=== PATIENT | female | born 1945 | race Caucasian/White ===

== ENCOUNTER → 2017-05-21 | Outpatient (CLI) | payer MEDICARE ==
[2017-05-21 17:19] LABS: HCT 43.5 % (34.0-46.0); HGB 13.8 gm/dL (11.4-16.0); MCH 27.5 pg (25.0-35.0); MCHC 31.7 g/dL (31.0-37.0); MCV 86.8 fL (80.0-100.0); Mean Platelet Volume 7.1; Platelet Count 322 k/uL (150-450); RBC 5.01 m/uL (3.80-5.40); RDW 13.7 % (11.5-15.5); WBC 10.6 k/uL (3.8-10.6)
[2017-05-21 17:41] LABS: ALT 48 U/L (9-52); AST 33 U/L (14-36); Albumin 4.9 g/dL (3.5-5.0); Alkaline Phosphatase 83 U/L (38-126); Anion Gap 10 mmol/L; Blood Urea Nitrogen 20 mg/dL (7-17); Carbon Dioxide 29 mmol/L (22-30); Chloride 102 mmol/L (98-107); Glucose 107 mg/dL (74-99); Potassium 5.2 mmol/L (3.5-5.1); Sodium 141 mmol/L (137-145); Total Bilirubin 0.6 mg/dL (0.2-1.3)
--- NOTE | 2017-05-21 18:32 | XR ---
EXAMINATION TYPE: XR knee complete bilateral DATE OF EXAM: 05/21/2017 COMPARISON: NONE HISTORY: Pain TECHNIQUE: 6 views FINDINGS: There is narrowing of the joint spaces of the left knee with spurring of femoral and tibial condyles. There is spurring on the left patella. I see no fracture nor dislocation. The right knee j oint spaces are fairly normal. IMPRESSION: Moderate osteoarthritis in the left knee. Negative right knee exam. No fracture seen.
--- NOTE | 2017-05-21 18:33 | XR ---
EXAMINATION TYPE: XR lumbar spine 2 or 3V DATE OF EXAM: 05/21/2017 COMPARISON: NONE HISTORY: Pain TECHNIQUE: 3 views FINDINGS: The vertebra have fairly normal alignment. There is hypertrophic anterior spurring througho ut the lumbar spine. Posterior elements appear intact. Sacroiliac joints appear normal. There is no e vidence of a fracture. IMPRESSION: Multilevel spondylosis. No fracture seen. No significant disc space narrowing.
--- NOTE | 2017-05-21 18:34 | XR ---
EXAMINATION TYPE: XR Hip Bilateral Complete DATE OF EXAM: 05/21/2017 COMPARISON: NONE HISTORY: Pain TECHNIQUE: 4 views FINDINGS: There is moderate narrowing of the right hip joint space with extensive spurring of the lou tabulum. There is osteosclerosis and subchondral cystic change on both sides of the right hip joint. The left hip joint space is fairly normal. I see no fracture. IMPRESSION: Severe osteoarthritis in the right hip joint. Normal left hip joint. No fracture.
[2017-05-21 19:44] LABS: Erythrocyte Sedimentation Rate 11 mm/hr (0-20)
[2017-05-22 02:26] LABS: Hemoglobin A1C 6.2 % (4.0-6.0)
== END | disposition home or self-care (01) ==
LOC: RADXRMAIN 16:22
PROVIDERS: ATTEND Family Medicine
DX: M17.12 Unilateral primary osteoarthritis, left knee (principal); M16.11 Unilateral primary osteoarthritis, right hip; M47.816 Spondylosis without myelopathy or radiculopathy, lumbar region; I25.10 Atherosclerotic heart disease of native coronary artery without angina pectoris; M25.50 Pain in unspecified joint
CPT/HCPCS: 72100; 73521; 80053; 83036; 84443; 85027; 85652; 86431

== ENCOUNTER → 2017-06-04 | Outpatient (CLI) | payer MEDICARE ==
[2017-06-04 10:14] LABS: Cholesterol 238 mg/dL (<200); HDL Cholesterol 50 mg/dL (40-60); LDL Cholesterol,Calculated 150 mg/dL (0-99); Triglycerides 189 mg/dL (<150)
== END | disposition home or self-care (01) ==
LOC: LABWHC1 09:39
PROVIDERS: ATTEND Family Medicine
DX: I25.10 Atherosclerotic heart disease of native coronary artery without angina pectoris (principal); M19.90 Unspecified osteoarthritis, unspecified site
CPT/HCPCS: 36415; 80061

== ENCOUNTER 2018-02-09 14:26 | Inpatient (IN) | payer MEDICARE ==
[2018-02-09] MEDS ORDERED: SODIUM CHLORIDE 0.9% 1,000 ML IV SCH (16:15)
--- NOTE | 2018-02-09 16:58 | XR ---
EXAMINATION: XR chest 2V DATE AND TIME: 02/09/2018 4:44 PM CLINICAL INDICATION: dyspnea TECHNIQUE: PA and lateral COMPARISON: 11/30/2011 FINDINGS: SOFT TISSUES: Sutures and mediastinal clips are noted. There is mild/moderate enlargement of the card iac silhouette. LUNGS: There is marked silhouetting of the pulmonary vasculature bilaterally by asymmetric pattern of ill-defined reticular opacity with bilateral septal lines noted. No airspace filling process. PLEURAL SPACES: Minimally blunted posterior costophrenic angles are noted, along with tracking along the interlobar fissures bilaterally. OSSEOUS STRUCTURES: Unremarkable. VISUALIZED SUBDIAPHRAGMATIC STRUCTURES: Negative. IMPRESSION: RADIOGRAPHIC READINGS CONSISTENT WITH MARKED INTERSTITIAL PHASE CARDIOGENIC PULMONARY EDEMA.
[2018-02-09] MEDS: ATENOLOL 25 MG TAB PO SCH (17:44)
[2018-02-09] MEDS ORDERED: DILTIAZEM DRIP BOLUS FROM BAG 1 MG SOLN IV ONE (18:05)
[2018-02-09] MEDS ORDERED: HEPARIN SODIUM,PORCINE 5,000 UNIT/ML 1 ML VIAL IV PRN (18:07)
[2018-02-09] MEDS ORDERED: FUROSEMIDE 10 MG/ML 4 ML VIAL IV STA (18:18)
[2018-02-09 18:29] LABS: Basophils # (A) 0.1 k/uL (0-0.2); Basophils % (A) 1 %; Eosinophils # (A) 0.4 k/uL (0-0.7); Eosinophils % (A) 4 %; HCT 40.2 % (34.0-46.0); HGB 12.7 gm/dL (11.4-16.0); Hypochromasia Slight; Lymphocytes # (A) 3.2 k/uL (1.0-4.8); Lymphocytes % (A) 26 %; MCH 27.2 pg (25.0-35.0); MCHC 31.6 g/dL (31.0-37.0); MCV 86.2 fL (80.0-100.0); Mean Platelet Volume 7.5; Monocytes # (A) 0.6 k/uL (0-1.0); Monocytes % (A) 5 %; Neutrophils # (A) 7.6 k/uL (1.3-7.7); Neutrophils % (A) 63 %; Platelet Count 325 k/uL (150-450); RBC 4.67 m/uL (3.80-5.40); RDW 15.3 % (11.5-15.5); WBC 12.2 k/uL (3.8-10.6)
[2018-02-09] MEDS ORDERED: HEPARIN SODIUM,PORCINE 5,000 UNIT/ML 1 ML VIAL IV ONE (18:30)
[2018-02-09] MEDS ORDERED: HEPARIN SOD,PORK IN 0.45% NACL 25,000 UNIT in 0.45% NACL 1 500ML.BAG IV SCH (18:30)
[2018-02-09] MEDS ORDERED: DILTIAZEM 50 MG in SODIUM CHLORIDE 0.9% 40 ML IV SCH (18:30)
[2018-02-09 18:36] LABS: INR 1.1 (<1.2); Partial Thromboplastin Time 24.3 sec (22.0-30.0); Prothrombin Time 10.7 sec (9.0-12.0)
[2018-02-09] MEDS: LISINOPRIL 5 MG TAB PO SCH (21:22)
--- NOTE | 2018-02-09 23:08 | CONS ---
CONSULTATION CHIEF COMPLAINT: Shortness of breath and leg edema. Barb is a 72-year-old lady with history of coronary artery disease, status post CABG in 2012, who is admitted to hospital with shortness of breath and leg edema of several days' duration. Her leg edema is more on the left side than on the right side. She is directly admitted to hospital by Dr. Murray Gaytan. She denies any chest pain, palpitations, dizziness or syncope. There is no history of paroxysmal nocturnal dyspnea or orthopnea. She has not been on any cardiac medications. When she was initially admitted to the med/surg unit she was in atrial fibrillation with rapid ventricular rate. We brought her up to [facility]. By then her heart rate was better controlled following a dose of Tenormin. We gave her a dose of Lasix. Her BNP is elevated. We started her on IV heparin. D-dimer is slightly elevated. I am going to get a creatinine done, and if that is normal, obtain a CTA of the pulmonary arteries to rule out pulmonary embolism. Will get a venous duplex of the left leg to rule out DVT. BNP is elevated. We will obtain cardiac enzymes to rule out myocardial ischemia. We will review her old records. PAST MEDICAL HISTORY: 1. CAD, status post CABG. 2. Arthritis. MEDICATION: She was just taking an NSAID. ALLERGIES: SULFA and PENICILLIN. FAMILY HISTORY: Significant for valvular heart disease in her mother. SOCIAL HISTORY: Negative for smoking, EtOH abuse or drug abuse. REVIEW OF SYSTEMS: HEENT is unremarkable. CARDIAC: As described above. RESPIRATORY: As described above. GI: Negative. GENITOURINARY: Negative. ALLERGY/IMMUNOLOGY: Negative. SKIN: Negative. MUSCULOSKELETAL: Significant for arthritis. PSYCHOSOCIAL: Negative. ENDOCRINE: Negative. RHEUMATOLOGIC: Negative. DERMATOLOGIC: Negative. CONSTITUTIONAL: Negative. ONCOLOGICAL: Negative. STORES CLERK: Negative. Rest of the system review is not relevant. PHYSICAL EXAMINATION: Heart rate is 90 beats per minute, irregular. Blood pressure is 130/72, respiratory rate 18. Chest exam reveals good air entry bilaterally. Heart exam reveals first and second heart sounds, irregular rhythm, and a systolic murmur at the left lower sternal border. Abdomen is soft. Examination of extremities revealed bilateral edema, more on the left side than on the right side. Foot pulses are intact. EKG shows atrial fibrillation, nonspecific ST-T wave changes. BNP is elevated. D- dimer is slightly elevated. ASSESSMENT: 1. Persistent atrial fibrillation with poorly controlled ventricular rate. 2. Acute onset congestive heart failure of undermined left ventricular function. 3. History of coronary artery disease, status post coronary artery bypass grafting. 4. Elevated D-dimer. 5. Left leg edema. PLAN: Therapies as initiated. I will obtain a 2D echo in the morning. Will decide on further course of action based on the test results. Patient is being treated with aspirin, IV heparin, beta blockers, GAVIN inhibitors, statins and IV diuretics. MMODL / IJN: [id number] /
[2018-02-09] MEDS ORDERED: IBUPROFEN 400 MG TAB PO PRN (23:11)
[2018-02-10 01:25] LABS: Appearance,Urine Clear (Clear); Bacteria,Urine Rare /hpf; Bilirubin,Urine Negative (Negative); Blood,Urine Negative (Negative); Color,Urine Colorless; Glucose,Urine (UA) Negative (Negative); Ketones,Urine Negative (Negative); Leukocyte Esterase,Urine Trace (Negative); Nitrite,Urine Negative (Negative); PH, Urine 5.5 (5.0-8.0); Protein,Urine Negative (Negative); RBC,Urine <1 /hpf (0-5); Specific Gravity,Urine 1.006 (1.001-1.035); Squamous Epithelial Cell,Urine <1 /hpf (0-4); Urobilinogen,Urine <2.0 mg/dL (<2.0); WBC,Urine 5 /hpf (0-5)
[2018-02-10 03:07] LABS: Basophils # (A) 0.1 k/uL (0-0.2); Basophils % (A) 1 %; Eosinophils # (A) 0.5 k/uL (0-0.7); Eosinophils % (A) 4 %; HCT 39.2 % (34.0-46.0); HGB 12.2 gm/dL (11.4-16.0); Hypochromasia Moderate; Lymphocytes # (A) 4.3 k/uL (1.0-4.8); Lymphocytes % (A) 36 %; MCH 27.4 pg (25.0-35.0); MCV 88.3 fL (80.0-100.0); Mean Platelet Volume 7.1; Monocytes # (A) 0.6 k/uL (0-1.0); Monocytes % (A) 5 %; Neutrophils # (A) 6.1 k/uL (1.3-7.7); Neutrophils % (A) 51 %; Platelet Count 316 k/uL (150-450); RBC 4.44 m/uL (3.80-5.40); RDW 15.2 % (11.5-15.5); WBC 11.9 k/uL (3.8-10.6)
[2018-02-10 03:24] LABS: Albumin 3.9 g/dL (3.5-5.0); Calcium 9.4 mg/dL (8.4-10.2); Magnesium 1.8 mg/dL (1.6-2.3); Potassium 4.4 mmol/L (3.5-5.1); Total Bilirubin 0.6 mg/dL (0.2-1.3); Total Protein 6.8 g/dL (6.3-8.2)
--- NOTE | 2018-02-10 08:07 | US ---
EXAMINATION TYPE: US venous doppler duplex LE RT DATE OF EXAM: 02/10/2018 7:54 AM COMPARISON: NONE CLINICAL HISTORY: rule out DVT. Right leg pain and swelling, patient on blood thinners SIDE PERFORMED: Right TECHNIQUE: The lower extremity deep venous system is examined utilizing real time linear array sonog carlos with graded compression, doppler sonography and color-flow sonography. VESSELS IMAGED: External Iliac Vein (EIV) Common Femoral Vein Deep Femoral Vein Greater Saphenous Vein * Femoral Vein Popliteal Vein Small Saphenous Vein * Proximal Calf Veins (* superficial vessels) Right Leg: Appears negative for DVT There is normal flow, compressibility, vascular waveforms. IMPRESSION: No evident deep venous thrombosis at or above the right knee
--- NOTE | 2018-02-10 08:28 | CT ---
EXAMINATION TYPE: CT chest angio for PE DATE OF EXAM: 02/10/2018 COMPARISON: Radiographs 02/09/2018 HISTORY: 72-year-old female with shortness of breath, rule out PE TECHNIQUE: Contiguous axial scanning of the chest performed with IV Contrast, patient injected with 6 6mL mL of Isovue 370. Coronal/sagittal MIP reconstructions performed. CT DLP: 249.2 mGycm Automated exposure control for dose reduction was used. FINDINGS: Heart borderline enlarged without pericardial effusion. No flattening of the interventricular septum. Median sternotomy wires are present with post-CABG changes. Aorta normal caliber with conventional arch vessel branching anatomy. There is dense opacification of the pulmonary arterial system with a solitary branch point filling de fect at the distal left lower lobar pulmonary artery, axial image 61. Contrast has not adequately mandi ched the lung bases and assessment here is limited. There is mediastinal lymphadenopathy, right paratracheal measuring 1.4 cm, AP window measuring 1.3 cm , precarinal measuring 1.6 cm, and subcarinal measuring 1.8 cm. Small to moderate bilateral pleural effusions with diffuse septal lines and mild patchy areas of grou ndglass in the lower lungs. Some more confluent consolidation in the inferior lingula is noted. Prominent reflux of contrast into the hepatic veins. Bones: Mild degenerative disc disease throughout. IMPRESSION: 1. AT LEAST A SOLITARY PULMONARY EMBOLUS AT THE BRANCH POINT OF THE DISTAL LEFT LOWER LOBAR PULMONARY ARTERY. CONTRAST HAS NOT ADEQUATELY REACHED THE LUNG BASES TO ASSESS THESE VESSELS. NO CT EVIDENCE F OR RIGHT HEART STRAIN. 2. SMALL TO MODERATE PLEURAL EFFUSIONS WITH DIFFUSE SEPTAL LINES, DEVELOPING PATCHY GROUNDGLASS IN TH E LOWER LUNGS, AND PROMINENT REFLUX OF CONTRAST INTO THE HEPATIC VEINS. CORRELATE FOR CHF AND DEVELOP ING INTERSTITIAL EDEMA. 3. MORE CONFLUENT PULMONARY EDEMA VERSUS INFILTRATE AT THE INFERIOR LINGULA. 4. MEDIASTINAL LYMPHADENOPATHY MEASURING UP TO 1.8 CM WHICH MAY BE REACTIVE. 4 - 6 WEEK FOLLOW-UP REC OMMENDED AFTER TREATMENT TO REASSESS. SARCOIDOSIS/GRANULOMATOUS DISEASE, SYSTEMIC INFECTIONS, LYMPHOM A, AND METASTATIC DISEASE ARE IN THE DIFFERENTIAL AT THIS TIME. Critical findings called to nurse Arenas on at 8:25 AM.
--- NOTE | 2018-02-10 08:36 | P.CNOR ---
History of Present Illness - [facility] Consult date: 02/10/18 Consult reason: joint pain (Right hip) History of present illness: This is a 72-year-old female admitted with congestive heart failure. She complains of right hip pain. She was scheduled to see Dr. Darrel Dean in the office today for evaluation of her right hip pain. She has a known history of degenerative arthritis of the right hip. She does complain of some back pain but denies any radiculopathy, numbness or tingling. We're consulted for orthopedic evaluation of her right hip. Past Medical History Past Medical History: Coronary Artery Disease (CAD), Osteoarthritis (OA) Additional Past Medical History / Comment(s): "fatty liver", beginnings of cataracts","occ heart burn takes tums", urinary incont. previous hx mentioned mi but pt not aware of this. History of Any Multi-Drug Resistant Organisms: None Reported Past Surgical History: Back Surgery, Coronary Bypass/CABG, Heart Catheterization , Tonsillectomy, Tubal Ligation Additional Past Surgical History / Comment(s): 2012 quad cabg,cervical fusion, lt knee arthroscopic sx Past Anesthesia/Blood Transfusion Reactions: Family History of Problems w/ Anesthesia Additional Past Anesthesia/Blood Transfusion Reaction / Comm: mom had hard time waking up after aa. pt has clausterphobia Smoking Status: Former smoker - Past Family History Father Family Medical History: Myocardial Infarction ([place]) Additional Family Medical History / Comment(s): from mi at age 52 Mother Additional Family Medical History / Comment(s): rheumatic fever. lived till age 85 Medications and Allergies Home Medications Medication Instructions Recorded Confirmed Type Multivitamin [Multivitamins Adult 1 tab PO DAILY 02/09/18 02/09/18 History Gummies] Naproxen Sodium [Aleve] 440 mg PO DAILY PRN 02/09/18 02/09/18 History Allergies Allergy/AdvReac Type Severity Reaction Status Date / Time acetaminophen [From Tylenol] AdvReac Unknown Verified 02/09/18 16:09 Sulfa (Sulfonamide AdvReac Confusion Verified 02/09/18 16:09 Antibiotics) Physical Examination This is a pleasant 72-year-old female in no acute distress. She is alert and oriented 3. Exam of the lower extremities reveals no obvious deformity. There is no erythema or ecchymosis to the right lower extremity. She has full foot and ankle motion without difficulty or pain. She has difficulty raising the leg off the bed independently but can do so with pain. She is limited in internal/external rotation of the hip and has pain with rotation. Normal sensation to the toes. Neurovascular status to the lower extremity is intact. Results Current x-rays are pending. X-rays of the right hip and pelvis from May 2017 reveal moderate to severe degenerative arthritis of the right hip. No fractures identified on those images. - Labs Labs: Abnormal Lab Results - Last 24 Hours (Table) 02/09/18 02/09/18 02/09/18 Range/Units 16:21 16:21 16:21 WBC 12.2 H (3.8-10.6) k/uL APTT (22.0-30.0) sec D-Dimer 0.85 H (<0.60) mg/L FEU BUN (7-17) mg/dL Glucose (74-99) mg/dL Triglycerides 153 H (<150) mg/dL LDL Cholesterol, Calc 121 H (0-99) mg/dL HDL Cholesterol 31 L (40-60) mg/dL Ur Leukocyte Esterase (Negative) Urine Bacteria (None) /hpf 02/09/18 02/10/18 02/10/18 Range/Units 23:45 02:35 02:35 WBC 11.9 H (3.8-10.6) k/uL APTT (22.0-30.0) sec D-Dimer (<0.60) mg/L FEU BUN 27 H (7-17) mg/dL Glucose 108 H (74-99) mg/dL Triglycerides (<150) mg/dL LDL Cholesterol, Calc (0-99) mg/dL HDL Cholesterol (40-60) mg/dL Ur Leukocyte Esterase Trace H (Negative) Urine Bacteria Rare H (None) /hpf 02/10/18 Range/Units 02:35 WBC (3.8-10.6) k/uL APTT 41.1 H (22.0-30.0) sec D-Dimer (<0.60) mg/L FEU BUN (7-17) mg/dL Glucose (74-99) mg/dL Triglycerides (<150) mg/dL LDL Cholesterol, Calc (0-99) mg/dL HDL Cholesterol (40-60) mg/dL Ur Leukocyte Esterase (Negative) Urine Bacteria (None) /hpf H & H 02/09/18 02/10/18 Range/Units 16:21 02:35 Hgb 12.7 12.2 (11.4-16.0) gm/dL Hct 40.2 39.2 (34.0-46.0) % Coagulation 02/09/18 Range/Units 16:21 INR 1.1 (<1.2) Result Diagrams: 02/10/18 02:35 02/10/18 02:35 Assessment and Plan (1) Degenerative localized arthritis of hip Current Visit: Yes Status: Acute Code(s): M16.9 - OSTEOARTHRITIS OF HIP, UNSPECIFIED SNOMED Code(s): 104753074 Plan: The clinical and x-ray findings are discussed the patient. I have recommended that we obtain new x-rays since it has been almost a year since her prior films. We will continue to follow and make further recommendations as indicated.
[2018-02-10] MEDS ORDERED: HEPARIN SODIUM,PORCINE 5,000 UNIT/ML 1 ML VIAL IV PRN (09:00)
[2018-02-10] MEDS ORDERED: FUROSEMIDE 10 MG/ML 4 ML VIAL IV SCH (09:00)
[2018-02-10 09:19] LABS: Basophils # (A) 0.2 k/uL (0-0.2); Basophils % (A) 1 %; Eosinophils # (A) 0.5 k/uL (0-0.7); Eosinophils % (A) 4 %; HCT 39.7 % (34.0-46.0); HGB 12.2 gm/dL (11.4-16.0); Hypochromasia Moderate; Lymphocytes # (A) 3.7 k/uL (1.0-4.8); Lymphocytes % (A) 31 %; MCH 27.3 pg (25.0-35.0); MCHC 30.8 g/dL (31.0-37.0); MCV 88.6 fL (80.0-100.0); Mean Platelet Volume 7.2; Monocytes # (A) 0.6 k/uL (0-1.0); Monocytes % (A) 5 %; Neutrophils # (A) 6.8 k/uL (1.3-7.7); Neutrophils % (A) 57 %; Platelet Count 300 k/uL (150-450); RBC 4.47 m/uL (3.80-5.40); RDW 15.3 % (11.5-15.5)
--- NOTE | 2018-02-10 10:07 | P.CRDCN ---
History of Present Illness Consult reason: shortness of breath History of present illness: Persistent atrial fibrillation Possible pulmonary embolus and Inflammatory changes in the lung on CT Our plan is and granulation and rate control Discussed with patient as practitioner Please see full dictation by practitioner Past Medical History Past Medical History: Coronary Artery Disease (CAD), Osteoarthritis (OA) Additional Past Medical History / Comment(s): "fatty liver", beginnings of cataracts","occ heart burn takes tums", urinary incont. previous hx mentioned mi but pt not aware of this. History of Any Multi-Drug Resistant Organisms: None Reported Past Surgical History: Back Surgery, Coronary Bypass/CABG, Heart Catheterization , Tonsillectomy, Tubal Ligation Additional Past Surgical History / Comment(s): 2011 quad cabg,cervical fusion, lt knee arthroscopic sx Past Anesthesia/Blood Transfusion Reactions: Family History of Problems w/ Anesthesia Additional Past Anesthesia/Blood Transfusion Reaction / Comment(s): mom had hard time waking up after aa. pt has clausterphobia Smoking Status: Former smoker - Past Family History Father Family Medical History: Myocardial Infarction ([place]) Additional Family Medical History / Comment(s): from mi at age 52 Mother Additional Family Medical History / Comment(s): rheumatic fever. lived till age 85 Medications and Allergies Home Medications Medication Instructions Recorded Confirmed Type Multivitamin [Multivitamins Adult 1 tab PO DAILY 02/09/18 02/09/18 History Gummies] Naproxen Sodium [Aleve] 440 mg PO DAILY PRN 02/09/18 02/09/18 History Allergies Allergy/AdvReac Type Severity Reaction Status Date / Time acetaminophen [From Tylenol] AdvReac Unknown Verified 02/09/18 16:09 Sulfa (Sulfonamide AdvReac Confusion Verified 02/09/18 16:09 Antibiotics) Physical Exam Vitals: Vital Signs Temp Pulse Resp BP Pulse Ox 02/10/18 04:00 97.1 F L 80 16 121/70 97 02/10/18 00:00 88 15 129/85 96 02/09/18 20:00 97.5 F L 91 17 126/81 94 L 02/09/18 18:45 96.6 F L 87 18 127/93 94 L 02/09/18 16:19 97.7 F 127 H 24 141/94 96 Intake and Output 02/09/18 02/10/18 02/10/18 22:59 06:59 14:59 Intake Total 10 254.58 Output Total 300 Balance 10 -45.42 Intake: IV 10 10 Invasive Line 1 10 10 Intake, IV Titration 244.58 Amount Diltiazem 50 mg In Sodium 0 Chloride 0.9% 40 ml @ 5 MG/HR 5 mls/hr IV .Q10H [facility] Rx#:[id number] Heparin Sod,Pork in 0.45% 104.58 NaCl 25,000 unit In 0.45 % NaCl 1 500ml.bag @ 12 UNITS/KG/HR 16.6 mls/hr IV .Q24H [facility] Rx#: [id number] Sodium Chloride 0.9% 1, 140 000 ml @ 50 mls/hr IV . Q20H [facility] Rx#:[id number] Output: Urine 300 Other: Voiding Method Toilet Toilet # Voids 1 Weight 69 kg Results 02/10/18 08:56 02/10/18 02:35 Cardiac Enzymes 02/10/18 Range/Units 02:35 AST 25 (14-36) U/L Coagulation 02/09/18 02/10/18 02/10/18 Range/Units 16:21 02:35 08:56 PT 10.7 (9.0-12.0) sec APTT 24.3 41.1 H 61.6 H (22.0-30.0) sec Lipids 02/09/18 Range/Units 16:21 Triglycerides 153 H (<150) mg/dL Cholesterol 183 (<200) mg/dL HDL Cholesterol 31 L (40-60) mg/dL CBC 02/09/18 02/10/18 02/10/18 Range/Units 16:21 02:35 08:56 WBC 12.2 H 11.9 H 12.0 H (3.8-10.6) k/uL RBC 4.67 4.44 4.47 (3.80-5.40) m/uL Hgb 12.7 12.2 12.2 (11.4-16.0) gm/dL Hct 40.2 39.2 39.7 (34.0-46.0) % Plt Count 325 316 300 (150-450) k/uL Comprehensive Metabolic Panel 02/10/18 Range/Units 02:35 Sodium 137 (137-145) mmol/L Potassium 4.4 (3.5-5.1) mmol/L Chloride 106 (98-107) mmol/L Carbon Dioxide 24 (22-30) mmol/L BUN 27 H (7-17) mg/dL Creatinine 0.89 (0.52-1.04) mg/dL Glucose 108 H (74-99) mg/dL Calcium 9.4 (8.4-10.2) mg/dL AST 25 (14-36) U/L ALT 20 (9-52) U/L Alkaline Phosphatase 63 (38-126) U/L Total Protein 6.8 (6.3-8.2) g/dL Albumin 3.9 (3.5-5.0) g/dL Current Medications Generic Name Dose Route Start Last Admin Trade Name Freq PRN Reason Stop Dose Admin Albuterol/Ipratropium 3 ml 02/10/18 12:00 Duoneb 0.5 Mg-3 Mg/3 Ml Soln INHALATION RT-QID [facility] Aspirin 81 mg 02/10/18 09:00 Aspirin PO DAILY [facility] Atenolol 25 mg 02/09/18 21:00 02/09/18 17:44 Tenormin PO 25 mg BID [facility] Administration Atorvastatin Calcium 20 mg 02/10/18 09:00 Lipitor PO DAILY [facility] Furosemide 40 mg 02/10/18 09:00 Lasix IV DAILY [facility] Heparin Sodium (Porcine) 0 unit 02/10/18 09:00 Heparin IV PER PROTOCOL PRN Low PTT Protocol Heparin Sodium/Sodium Chloride 500 mls @ 24.84 mls/hr 02/10/18 09:00 25,000 unit/ Sodium Chloride IV .Q20H8M [facility] Protocol 18 UNITS/KG/HR Ibuprofen 400 mg 02/09/18 23:11 02/09/18 23:33 Motrin PO 400 mg Q4HR PRN Administration Mild Pain Lisinopril 5 mg 02/09/18 21:00 02/09/18 21:22 Zestril PO 5 mg DAILY [facility] Administration Oxycodone HCl 5 mg 02/10/18 07:43 Oxyir PO Q12HR PRN Pain Intake and Output 02/09/18 02/10/18 02/10/18 22:59 06:59 14:59 Intake Total 10 254.58 Output Total 300 Balance 10 -45.42 Intake: IV 10 10 Invasive Line 1 10 10 Intake, IV Titration 244.58 Amount Diltiazem 50 mg In Sodium 0 Chloride 0.9% 40 ml @ 5 MG/HR 5 mls/hr IV .Q10H [facility] Rx#:[id number] Heparin Sod,Pork in 0.45% 104.58 NaCl 25,000 unit In 0.45 % NaCl 1 500ml.bag @ 12 UNITS/KG/HR 16.6 mls/hr IV .Q24H [facility] Rx#: [id number] Sodium Chloride 0.9% 1, 140 000 ml @ 50 mls/hr IV . Q20H [facility] Rx#:[id number] Output: Urine 300 Other: Voiding Method Toilet Toilet # Voids 1 Weight 69 kg 02/10/18 08:56 02/10/18 02:35
[2018-02-10] MEDS: ATORVASTATIN 20 MG TAB PO SCH (10:21)
[2018-02-10] MEDS: ATENOLOL 25 MG TAB PO SCH (10:21)
[2018-02-10] MEDS: ASPIRIN 81 MG PO SCH (10:21)
[2018-02-10] MEDS: LISINOPRIL 5 MG TAB PO SCH (10:21)
[2018-02-10] MEDS: HEPARIN SOD,PORK IN 0.45% NACL 25,000 UNIT in 0.45% NACL 1 500ML.BAG IV SCH (10:55)
--- NOTE | 2018-02-10 11:16 | ECHOF ---
Referral Reason: MEASUREMENTS -------- HEIGHT: 165.1 cm WEIGHT: 68.9 kg BP: RVIDd: 2.3 cm (< 3.3) IVSd: 1.0 cm (0.6 - 1.1) LVIDd: 3.9 cm (3.9 - 5.3) LVPWd: 1.0 cm (0.6 - 1.1) IVSs: 1.2 cm LVIDs: 3.5 cm LVPWs: 1.3 cm Ao Diam: 2.5 cm (2.0 - 3.7) AV Cusp: 1.7 cm (1.5 - 2.6) LA Diam: 4.0 cm (2.7 - 3.8) MV EXCURSION: 16.659 mm (> 18.000) MV EF SLOPE: 104 mm/s (70 - 150) EPSS: 1.9 cm RAP: 5.00 mmHg RVSP: 47.20 mmHg FINDINGS -------- Atrial fibrillation. This was a technically difficult study with suboptimal views. The left ventricular size is normal. There is mild concentric left ventricular hypertrophy. There is severe global hypokinesis of LV . Overall left ventricular systolic function is severely impair ed with, an EF between 20 - 25 %. The right ventricle is normal in size and function. The left atrium is mildly dilated. The right atrium is normal in size. Lumason used Aortic valve is trileaflet and is mildly thickened. Moderate mitral regurgitation is present. Moderate tricuspid regurgitation present. There is mild pulmonary hypertension. The right ventric ular systolic pressure, as measured by Doppler, is 47.20mmHg. Pulmonic valve appears structurally normal. The aortic root, ascending aorta and aortic arch are normal. Large Pleural Effusion. CONCLUSIONS -------- 1. Atrial fibrillation. 2. This was a technically difficult study with suboptimal views. 3. The left ventricular size is normal. 4. There is mild concentric left ventricular hypertrophy. 5. There is severe global hypokinesis of LV . 6. Overall left ventricular systolic function is severely impaired with, an EF between 20 - 25 %. 7. The right ventricle is normal in size and function. 8. The left atrium is mildly dilated. 9. The right atrium is normal in size. 10. Lumason used 11. Aortic valve is trileaflet and is mildly thickened. 12. Moderate mitral regurgitation is present. 13. Moderate tricuspid regurgitation present. 14. There is mild pulmonary hypertension. 15. The right ventricular systolic pressure, as measured by Doppler, is 47.20mmHg. 16. Pulmonic valve appears structurally normal. 17. The aortic root, ascending aorta and aortic arch are normal. 18. Large Pleural Effusion. FLATWORK FINISHER HAND: Lorrie Bah RDCS
--- NOTE | 2018-02-10 12:17 | P.PN ---
Subjective Progress Note Date: 02/10/18 This is a 72-year-old female with known history of coronary artery disease and prior bypass surgery in 2011 was admitted to the hospital with symptoms of shortness of breath and leg edema more on the left side than the right side. She was initially admitted to the MedSurg unit and was in A. fib with RVR transferred to [facility] care. She was given a dose of Lasix and was initiated on IV heparin. CTA of the chest was ordered which showed at least a solitary pulmonary embolus at the branch point of the distal left lower lobar pulmonary artery. No evidence of right heart strain small to moderate pleural effusions with diffuse septal lines developing patchy groundglass in the lower lungs, correlate for CHF and developing interstitial edema. Mediastinal lymphadenopathy measuring up to 1.8 cm which may be reactive. 46 week follow- up recommended after treatment to reassess sarcoidosis or granulomatous disease. Systemic infections, lymphoma, and metastatic disease are all in the differential at this time. Venous duplex of the right lower extremity was negative for DVT. Echocardiogram with Doppler study revealed an ejection fraction of 20-25% severe global hypokinesia. Moderate MR, moderate TR, large pleural effusion. Patient is currently on IV heparin, high intensity for the pulmonary embolism. Blood pressure this morning 120/70 with a heart rate in the 80s, 97% on room air. White blood cell count 12.0, hemoglobin 12.2, platelet count 300. BNP level 9030. At the time of her examination this morning, patient continues to feel short of breath. Denies any chest discomfort. Objective - Vital Signs Vital signs: Vital Signs Temp 97.1 F L 02/10/18 04:00 Pulse 80 02/10/18 04:00 Resp 16 02/10/18 04:00 BP 121/70 02/10/18 04:00 Pulse Ox 97 02/10/18 04:00 Intake & Output 02/09/18 02/10/18 02/10/18 18:59 06:59 18:59 Intake Total 264.58 Output Total 300 Balance -35.42 Weight 69.173 kg 69 kg Intake: IV 20 Invasive Line 1 20 Intake, IV Titration 244.58 Amount Diltiazem 50 mg In Sodium 0 Chloride 0.9% 40 ml @ 5 MG/HR 5 mls/hr IV .Q10H [facility] Rx#:[id number] Heparin Sod,Pork in 0.45% 104.58 NaCl 25,000 unit In 0.45 % NaCl 1 500ml.bag @ 12 UNITS/KG/HR 16.6 mls/hr IV .Q24H [facility] Rx#: [id number] Sodium Chloride 0.9% 1, 140 000 ml @ 50 mls/hr IV . Q20H [facility] Rx#:[id number] Output: Urine 300 Other: Voiding Method Toilet # Voids 1 - Exam PHYSICAL EXAMINATION: GENERAL: 72-year-old female in no acute distress at the time of my examination HEENT: Head is atraumatic, normocephalic. Pupils equal, round. Sclera anicteric. Conjunctiva are clear. Mucous membranes of the mouth are moist. Neck is supple. There is elevated jugular venous pressure. No carotid bruit is heard. HEART EXAMINATION: Heart S1-S2 irregularly irregular a systolic murmur is heard. CHEST EXAMINATION: Lungs are clear with diminished air entry to the bases, left greater than right ABDOMEN: Soft, nontender. Bowel sounds are heard. No organomegaly noted. EXTREMITIES: 2+ peripheral pulses with no evidence of peripheral edema and no calf tenderness noted. NEUROLOGIC patient is awake, alert and oriented X3. . - Labs CBC & Chem 7: 02/10/18 08:56 02/10/18 02:35 Labs: Abnormal Lab Results - Last 24 Hours (Table) 02/09/18 02/09/18 02/09/18 Range/Units 16:21 16:21 16:21 WBC 12.2 H (3.8-10.6) k/uL MCHC (31.0-37.0) g/dL APTT (22.0-30.0) sec D-Dimer 0.85 H (<0.60) mg/L FEU BUN (7-17) mg/dL Glucose (74-99) mg/dL Troponin I (0.000-0.034) ng/mL Triglycerides 153 H (<150) mg/dL LDL Cholesterol, Calc 121 H (0-99) mg/dL HDL Cholesterol 31 L (40-60) mg/dL Ur Leukocyte Esterase (Negative) Urine Bacteria (None) /hpf 02/09/18 02/10/18 02/10/18 Range/Units 23:45 02:35 02:35 WBC 11.9 H (3.8-10.6) k/uL MCHC (31.0-37.0) g/dL APTT (22.0-30.0) sec D-Dimer (<0.60) mg/L FEU BUN 27 H (7-17) mg/dL Glucose 108 H (74-99) mg/dL Troponin I (0.000-0.034) ng/mL Triglycerides (<150) mg/dL LDL Cholesterol, Calc (0-99) mg/dL HDL Cholesterol (40-60) mg/dL Ur Leukocyte Esterase Trace H (Negative) Urine Bacteria Rare H (None) /hpf 02/10/18 02/10/18 02/10/18 Range/Units 02:35 08:56 08:56 WBC 12.0 H (3.8-10.6) k/uL MCHC 30.8 L (31.0-37.0) g/dL APTT 41.1 H 61.6 H (22.0-30.0) sec D-Dimer (<0.60) mg/L FEU BUN (7-17) mg/dL Glucose (74-99) mg/dL Troponin I (0.000-0.034) ng/mL Triglycerides (<150) mg/dL LDL Cholesterol, Calc (0-99) mg/dL HDL Cholesterol (40-60) mg/dL Ur Leukocyte Esterase (Negative) Urine Bacteria (None) /hpf 02/10/18 Range/Units 08:56 WBC (3.8-10.6) k/uL MCHC (31.0-37.0) g/dL APTT (22.0-30.0) sec D-Dimer (<0.60) mg/L FEU BUN (7-17) mg/dL Glucose (74-99) mg/dL Troponin I 0.065 H* (0.000-0.034) ng/mL Triglycerides (<150) mg/dL LDL Cholesterol, Calc (0-99) mg/dL HDL Cholesterol (40-60) mg/dL Ur Leukocyte Esterase (Negative) Urine Bacteria (None) /hpf Assessment and Plan Plan: Assessment and plan #1 Symptoms of shortness of breath with evidence of systolic congestive heart failure acute on chronic and bilateral effusions. #2 evidence of pulmonary embolism on CT of the chest #3 hypertension #4 hyperlipidemia #5 history of coronary artery disease with prior bypass surgery #6 ischemic cardiomyopathy with documented ejection fraction of 20% #7 persistent atrial fibrillation Plan We will attempt to get an old echocardiogram to see what the patient's LV function has been in the past, we will start her on beta pranav and GAVIN inhibitor, Lipitor, baby aspirin, change the IV Lasix over to oral. Consider initiation of Aldactone over the next couple of days. Patient is currently on high-intensity heparin and will be initiated on anticoagulation for her PE, once the duration of that treatment is over she will continue anticoagulation for her atrial fibrillation. DNP note has been reviewed, I agree with a documented findings and plan of care. Patient was seen and examined.
--- NOTE | 2018-02-10 12:55 | US ---
EXAMINATION TYPE: US venous doppler duplex LE LT DATE OF EXAM: 02/10/2018 10:38 AM COMPARISON: NONE CLINICAL HISTORY: swelling and pain. PE, patient on blood thinners, exam done portable. SIDE PERFORMED: Left TECHNIQUE: The lower extremity deep venous system is examined utilizing real time linear array sonog carlos with graded compression, doppler sonography and color-flow sonography. VESSELS IMAGED: External Iliac Vein (EIV) Common Femoral Vein Deep Femoral Vein Greater Saphenous Vein * Femoral Vein Popliteal Vein Small Saphenous Vein * Proximal Calf Veins (* superficial vessels) Left Leg: Appears negative for DVT IMPRESSION: There is normal flow, compressibility, vascular waveforms. No evident deep venous thro mbosis at or above the left knee.
--- NOTE | 2018-02-10 13:11 | P.CNPUL ---
<Kait Evans E - Last Filed: 02/10/18 13:09> History of Present Illness Consult date: 02/10/18 Requesting physician: Latrell Gaytan Reason for consult: dyspnea Chief complaint: Shortness of breath History of present illness: This is a 72-year-old female being seen examined and evaluated today for consultation. This patient does have a history of CAD, CABG in 2012, and osteoarthritis. The patient was a direct admit from Dr. Sosa's office. The patient states she had been having shortness of breath for the past one half weeks. She also noted to have some increased swelling in her bilateral lower extremities more so on the left than the right. She did have an ultrasound of the right lower extremity which was negative but they did not Doppler the left side which was more edematous. She was also noted to have a d-dimer that was slightly elevated at 0.85. She did have a CTA of the chest which did show a solitary pulmonary embolism at the branch point of the distal lower left lobar pulmonary artery. The contrast was not adequate to reach the lung bases to assess for further PEs. She also noted to have small to moderate pleural effusions and developing patchy groundglass in the lower lungs correlate for CHF and developing interstitial edema, confluent pulmonary edema versus infiltrate in the inferior lingula, she also had mediastinal lymphadenopathy measuring up to 1.8 cm which could be reactive. The patient has never had a PE or DVT in the past. Denies any recent travel. Denies any hormone replacement or any history of cancer in the past. She has never been on blood thinners. She did have an echocardiogram which is currently pending. She is a previous ex -smoker of approximately 1 pack per day for approximately 40 years. 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 She does have a cat and a dog in the home. She denies any environmental toxic inhalation exposures. Occasionally does experience seasonal ALLERGIES. She states that she has never had a sleep study and her is older she snores quite loudly. Upon examination patient's resting up in bed on room air. She does get short of breath with exertion and activity. She has had a slight cough with no sputum production. She denies any fevers or chills. She does complain of some right hip pain and orthopedics were consulted for that. She has had a good appetite, denies any recent weight loss or weight gain. The patient has never been worked up by a sane rn in the past. She denies any home oxygen use any CPAP, nebulizers or MDIs. Review of Systems 14 point review of systems was completed and is negative unless noted above in the HPI Past Medical History Past Medical History: Coronary Artery Disease (CAD), Osteoarthritis (OA) Additional Past Medical History / Comment(s): "fatty liver", beginnings of cataracts","occ heart burn takes tums", urinary incont. previous hx mentioned mi but pt not aware of this. History of Any Multi-Drug Resistant Organisms: None Reported Past Surgical History: Back Surgery, Coronary Bypass/CABG, Heart Catheterization , Tonsillectomy, Tubal Ligation Additional Past Surgical History / Comment(s): 2012 quad cabg,cervical fusion, lt knee arthroscopic sx Past Anesthesia/Blood Transfusion Reactions: Family History of Problems w/ Anesthesia Additional Past Anesthesia/Blood Transfusion Reaction / Comment(s): mom had hard time waking up after aa. pt has clausterphobia Smoking Status: Former smoker - Past Family History Father Family Medical History: Myocardial Infarction ([place]) Additional Family Medical History / Comment(s): from [place] at age 52 Mother Additional Family Medical History / Comment(s): rheumatic fever. lived till age 85 Medications and Allergies Home Medications Medication Instructions Recorded Confirmed Type Multivitamin [Multivitamins Adult 1 tab PO DAILY 02/09/18 02/09/18 History Gummies] Naproxen Sodium [Aleve] 440 mg PO DAILY PRN 02/09/18 02/09/18 History Allergies Allergy/AdvReac Type Severity Reaction Status Date / Time acetaminophen [From Tylenol] AdvReac Unknown Verified 02/09/18 16:09 Sulfa (Sulfonamide AdvReac Confusion Verified 02/09/18 16:09 Antibiotics) Physical Exam Vitals: Vital Signs Temp Pulse Resp BP Pulse Ox 02/10/18 04:00 97.1 F L 80 16 121/70 97 02/10/18 00:00 88 15 129/85 96 02/09/18 20:00 97.5 F L 91 17 126/81 94 L 02/09/18 18:45 96.6 F L 87 18 127/93 94 L 02/09/18 16:19 97.7 F 127 H 24 141/94 96 Intake and Output 02/09/18 02/10/18 02/10/18 22:59 06:59 14:59 Intake Total 10 254.58 Output Total 300 Balance 10 -45.42 Intake: IV 10 10 Invasive Line 1 10 10 Intake, IV Titration 244.58 Amount Diltiazem 50 mg In Sodium 0 Chloride 0.9% 40 ml @ 5 MG/HR 5 mls/hr IV .Q10H [facility] Rx#:[id number] Heparin Sod,Pork in 0.45% 104.58 NaCl 25,000 unit In 0.45 % NaCl 1 500ml.bag @ 12 UNITS/KG/HR 16.6 mls/hr IV .Q24H [facility] Rx#: [id number] Sodium Chloride 0.9% 1, 140 000 ml @ 50 mls/hr IV . Q20H [facility] Rx#:[id number] Output: Urine 300 Other: Voiding Method Toilet Toilet # Voids 1 Weight 69 kg GENERAL EXAM: Alert, comfortable in no apparent distress. HEAD: Normocephalic. EYES: Normal reaction of pupils, equal size. NOSE: Clear with pink turbinates. THROAT: No erythema or exudates. NECK: No masses, no JVD. CHEST: No chest wall deformity. LUNGS: Lungs noted to have some coarse crackles in the bilateral bases. Breathing even and unlabored CVS: S1 and S2 normal with no audible mumurs, regular rhythm. ABDOMEN: No hepatosplenomegaly, normal bowel sounds, no guarding or rigidity. EXTREMITIES: Trace edema to the right lower extremity, +1 edema in the left lower extremity, pedal pulses palpable. CENTRAL NERVOUS SYSTEM: No focal deficits, tone is normal in all 4 extremities. Results - Laboratory Findings CBC and BMP: 02/10/18 08:56 02/10/18 02:35 PT/INR, D-dimer PT 10.7 sec (9.0-12.0) 02/09/18 16:21 INR 1.1 (<1.2) 02/09/18 16:21 D-Dimer 0.85 mg/L FEU (<0.60) H 02/09/18 16:21 Abnormal lab findings: Abnormal Labs 02/09/18 02/09/18 02/09/18 16:21 16:21 16:21 WBC 12.2 H MCHC APTT D-Dimer 0.85 H BUN Glucose Triglycerides 153 H LDL Cholesterol, Calc 121 H HDL Cholesterol 31 L Ur Leukocyte Esterase Urine Bacteria 02/09/18 02/10/18 02/10/18 23:45 02:35 02:35 WBC 11.9 H MCHC APTT D-Dimer BUN 27 H Glucose 108 H Triglycerides LDL Cholesterol, Calc HDL Cholesterol Ur Leukocyte Esterase Trace H Urine Bacteria Rare H 02/10/18 02/10/18 02/10/18 02:35 08:56 08:56 WBC 12.0 H MCHC 30.8 L APTT 41.1 H 61.6 H D-Dimer BUN Glucose Triglycerides LDL Cholesterol, Calc HDL Cholesterol Ur Leukocyte Esterase Urine Bacteria - Diagnostic Findings Chest x-ray: report reviewed, image reviewed CT scan - chest: report reviewed, image reviewed U/S of Legs: report reviewed, image reviewed Assessment and Plan Assessment: Assessment Pulmonary embolism Bilateral pleural effusions Pulmonary edema versus infiltrate Atrial fibrillation with poor controlled ventricular rate Acute exacerbation of CHF History of CAD and CABG in the past sign left lower leg edema Plan Medications have been reviewed and will be continued as ordered. Obtain ultrasound of the left lower extremity Obtain ultrasound of the chest, pending those results may do a thoracentesis Agree with diuresis Patient is on IV heparin Echocardiogram pending Initiate and encourage incentive spirometer Continue with pulmonary hygiene, coughing and deep breathing exercises, and supportive care. Supplemental oxygen to maintain oxygen saturations of 92% or better. Continue nebulizer treatments. GI and DVT prophylaxis. We will continue to monitor labs/results and adjust treatment as necessary. Thank you for this consultation we will continue to follow this patient with you I performed an examination of the patient and discussed their management with the nurse practitioner. I have reviewed the nurse practitioner's note and agree with the documented findings and plan of care. <Maddi Dutton - Last Filed: 02/10/18 13:18> Physical Exam Osteopathic Statement: *. No significant issues noted on an osteopathic structural exam other than those noted in the History and Physical/Consult. Vitals: Vital Signs Temp Pulse Resp BP Pulse Ox 02/10/18 08:00 86 17 124/87 94 L 02/10/18 04:00 97.1 F L 80 16 121/70 97 02/10/18 00:00 88 15 129/85 96 02/09/18 20:00 97.5 F L 91 17 126/81 94 L 02/09/18 18:45 96.6 F L 87 18 127/93 94 L 02/09/18 16:19 97.7 F 127 H 24 141/94 96 Intake and Output 02/09/18 02/10/18 02/10/18 22:59 06:59 14:59 Intake Total 10 254.58 Output Total 300 400 Balance 10 -45.42 -400 Intake: IV 10 10 Invasive Line 1 10 10 Intake, IV Titration 244.58 Amount Diltiazem 50 mg In Sodium 0 Chloride 0.9% 40 ml @ 5 MG/HR 5 mls/hr IV .Q10H [facility] Rx#:[id number] Heparin Sod,Pork in 0.45% 104.58 NaCl 25,000 unit In 0.45 % NaCl 1 500ml.bag @ 12 UNITS/KG/HR 16.6 mls/hr IV .Q24H [facility] Rx#: [id number] Sodium Chloride 0.9% 1, 140 000 ml @ 50 mls/hr IV . Q20H [facility] Rx#:[id number] Output: Urine 300 400 Other: Voiding Method Toilet Toilet # Voids 1 1 Weight 69 kg Results - Laboratory Findings CBC and BMP: 02/10/18 08:56 02/10/18 02:35 PT/INR, D-dimer PT 10.7 sec (9.0-12.0) 02/09/18 16:21 INR 1.1 (<1.2) 02/09/18 16:21 D-Dimer 0.85 mg/L FEU (<0.60) H 02/09/18 16:21 Abnormal lab findings: Abnormal Labs 02/09/18 02/09/18 02/09/18 16:21 16:21 16:21 WBC 12.2 H MCHC APTT D-Dimer 0.85 H BUN Glucose Troponin I Triglycerides 153 H LDL Cholesterol, Calc 121 H HDL Cholesterol 31 L Ur Leukocyte Esterase Urine Bacteria 02/09/18 02/10/18 02/10/18 23:45 02:35 02:35 WBC 11.9 H MCHC APTT D-Dimer BUN 27 H Glucose 108 H Troponin I Triglycerides LDL Cholesterol, Calc HDL Cholesterol Ur Leukocyte Esterase Trace H Urine Bacteria Rare H 02/10/18 02/10/18 02/10/18 02:35 08:56 08:56 WBC 12.0 H MCHC 30.8 L APTT 41.1 H 61.6 H D-Dimer BUN Glucose Troponin I Triglycerides LDL Cholesterol, Calc HDL Cholesterol Ur Leukocyte Esterase Urine Bacteria 02/10/18 08:56 WBC MCHC APTT D-Dimer BUN Glucose Troponin I 0.065 H* Triglycerides LDL Cholesterol, Calc HDL Cholesterol Ur Leukocyte Esterase Urine Bacteria Assessment and Plan Assessment: Patient seen and examined. Left subsegmental pulmonary embolism, bilateral pleural effusions, pulmonary vascular congestion, new onset atrial fibrillation , mediastinal lymphadeonpathy. All discussed with the patient. Plan to hold heparin in the AM and perform thoracentesis. Bilateral LE dopplers negative for DVT. Echo shows EF 20-25%, mild PH. Diuresis, I/O, daily weight. Monitor renal function and urine output. Cardiology recommendations, james medrano. PE appears to be unprovoked, no recent travels, HRT, smoking, cancer history. Patient is advised she will need full work up outpatient for cancer screening. Thank you for this consultation. We will continue to follow along. ~Maddi Dutton DO
--- NOTE | 2018-02-10 13:16 | US ---
EXAMINATION TYPE: US chest DATE OF EXAM: 02/10/2018 COMPARISON: CT chest 02/10/2018 CLINICAL HISTORY: Bilateral pleural effusions, exam done portable. TECHNIQUE: Targeted ultrasound of the posterior lower bilateral hemithoraces EXAM MEASUREMENTS: Right Pleural Effusion pocket size: 10.7 cm Right skin surface to fluid distance: 3.1 cm Left Pleural Effusion pocket size: 10.1 cm Left skin surface to fluid distance: 2.5 cm Right side marked for possible thoracentesis outside the dept. Left side marked for possible thoracentesis outside the dept. Pulmonologists are able to review the images in the patient?s EMR. IMPRESSIONS: Bilateral pleural effusions
[2018-02-10] MEDS: IPRATROPIUM-ALBUTEROL 3 ML NEB INHALATION SCH ×3 (13:33→20:41)
[2018-02-10] MEDS: FUROSEMIDE 40 MG TAB PO SCH (15:54)
--- NOTE | 2018-02-10 15:59 | XR ---
EXAMINATION TYPE: XR Hip RT and AP Pelvis DATE OF EXAM: 02/10/2018 COMPARISON: Previous exam dated 05/21/2017 HISTORY: Right hip pain TECHNIQUE: A single AP view of the pelvis is obtained. Two views of the right hip are obtained. FINDINGS: There is marked joint space loss with subchondral sclerosis and probable geode formation s imilar to prior exam. There is marginal spurring. No fracture or dislocation. Alignment is maintained . Degenerative disc changes are noted incidentally in the lumbar spine. Vascular calcifications are p resent. Contrast material noted within the bladder. IMPRESSION: Osteoarthritis is severe as noted on prior exam.
[2018-02-10] MEDS: METOPROLOL TARTRATE 25 MG TAB PO SCH (21:22)
[2018-02-11] MEDS: HEPARIN SOD,PORK IN 0.45% NACL 25,000 UNIT in 0.45% NACL 1 500ML.BAG IV SCH ×2 (06:14→18:37)
[2018-02-11] MEDS: IPRATROPIUM-ALBUTEROL 3 ML NEB INHALATION SCH ×4 (08:20→20:47)
--- NOTE | 2018-02-11 08:51 | P.PN ---
Subjective Progress Note Date: 02/11/18 Principal diagnosis: Right hip pain. Congestive heart failure. This is a pleasant 72-year-old female who we are following regarding her right hip pain. X-rays were taken yesterday which do show progression of her degenerative arthritis of the right hip. There is no evidence of AVN or collapse of the femoral head. Objective - Vital Signs Vital signs: Vital Signs Temp 96.7 F L 02/11/18 08:00 Pulse 89 02/11/18 08:30 Resp 16 02/11/18 08:00 BP 128/60 02/11/18 08:00 Pulse Ox 94 L 02/11/18 08:00 Intake & Output 02/10/18 02/11/18 02/11/18 18:59 06:59 18:59 Intake Total 531.6 159.735 220 Output Total 1950 850 Balance -1418.4 -690.265 220 Weight 67.7 kg Intake: Intake, IV Titration 351.6 159.735 Amount Heparin Sod,Pork in 0.45% 201.6 159.735 NaCl 25,000 unit In 0.45 % NaCl 1 500ml.bag @ 18 UNITS/KG/HR 24.84 mls/hr IV .Q20H8M [facility] Rx#: [id number] Sodium Chloride 0.9% 1, 150 000 ml @ 50 mls/hr IV . Q20H [facility] Rx#:[id number] Oral 180 220 Output: Urine 1950 850 Other: Voiding Method Bedpan Bedpan # Voids 2 1 # Bowel Movements 1 - Exam This is a pleasant 72-year-old female in no acute distress. She is alert and oriented 3. Exam of the right hip is unchanged today. She continues to have difficulty with motion of the hip secondary to pain. She has full foot and ankle motion without difficulty or pain. Neurovascular status to the lower extremity is intact. - Labs CBC & Chem 7: 02/10/18 08:56 02/10/18 02:35 Labs: Abnormal Lab Results - Last 24 Hours (Table) 02/10/18 02/10/18 02/10/18 Range/Units 08:56 08:56 08:56 WBC 12.0 H (3.8-10.6) k/uL MCHC 30.8 L (31.0-37.0) g/dL APTT 61.6 H (22.0-30.0) sec Troponin I 0.065 H* (0.000-0.034) ng/mL 02/10/18 02/11/18 Range/Units 16:50 01:10 WBC (3.8-10.6) k/uL MCHC (31.0-37.0) g/dL APTT 128.8 H* 77.3 H (22.0-30.0) sec Troponin I (0.000-0.034) ng/mL Assessment and Plan (1) Degenerative localized arthritis of hip Current Visit: Yes Status: Acute Code(s): M16.9 - OSTEOARTHRITIS OF HIP, UNSPECIFIED SNOMED Code(s): 493127453 Plan: The clinical and x-ray findings are discussed the patient. I have discussed with the patient that she is a candidate for total hip arthroplasty. However, she will need to have improved cardiac function. I will have her follow-up with Dr. Darrel Dean in 2 weeks. In the meantime she is to have discussion with her primary care physician and cardiology regarding the possibility of hip replacement in the future.
[2018-02-11] MEDS: FUROSEMIDE 40 MG TAB PO SCH ×2 (09:44→15:31)
[2018-02-11] MEDS: ATORVASTATIN 20 MG TAB PO SCH (09:44)
[2018-02-11] MEDS: LISINOPRIL 5 MG TAB PO SCH (09:45)
[2018-02-11] MEDS: METOPROLOL TARTRATE 25 MG TAB PO SCH ×2 (09:46→20:44)
[2018-02-11 10:10] LABS: Basophils # (A) 0.2 k/uL (0-0.2); Basophils % (A) 1 %; Eosinophils # (A) 0.6 k/uL (0-0.7); Eosinophils % (A) 4 %; HCT 38.1 % (34.0-46.0); HGB 11.6 gm/dL (11.4-16.0); Hypochromasia Slight; Lymphocytes % (A) 32 %; MCH 26.8 pg (25.0-35.0); MCHC 30.5 g/dL (31.0-37.0); Mean Platelet Volume 7.1; Monocytes # (A) 0.8 k/uL (0-1.0); Monocytes % (A) 6 %; Neutrophils % (A) 55 %; Platelet Count 297 k/uL (150-450); RBC 4.33 m/uL (3.80-5.40); RDW 15.3 % (11.5-15.5); WBC 12.7 k/uL (3.8-10.6)
--- NOTE | 2018-02-11 10:15 | P.PN ---
Subjective Progress Note Date: 02/11/18 History of present illness: This is a 72-year-old female being seen examined and evaluated today for consultation. This patient does have a history of CAD, CABG in 2011, and osteoarthritis. The patient was a direct admit from Dr. Soas's office. The patient states she had been having shortness of breath for the past one half weeks. She also noted to have some increased swelling in her bilateral lower extremities more so on the left than the right. She did have an ultrasound of the right lower extremity which was negative but they did not Doppler the left side which was more edematous. She was also noted to have a d-dimer that was slightly elevated at 0.85. She did have a CTA of the chest which did show a solitary pulmonary embolism at the branch point of the distal lower left lobar pulmonary artery. The contrast was not adequate to reach the lung bases to assess for further PEs. She also noted to have small to moderate pleural effusions and developing patchy groundglass in the lower lungs correlate for CHF and developing interstitial edema, confluent pulmonary edema versus infiltrate in the inferior lingula, she also had mediastinal lymphadenopathy measuring up to 1.8 cm which could be reactive. The patient has never had a PE or DVT in the past. Denies any recent travel. Denies any hormone replacement or any history of cancer in the past. She has never been on blood thinners. She did have an echocardiogram which is currently pending. She is a previous ex -smoker of approximately 1 pack per day for approximately 40 years. 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 She does have a cat and a dog in the home. She denies any environmental toxic inhalation exposures. Occasionally does experience seasonal ALLERGIES. She states that she has never had a sleep study and her is older she snores quite loudly. Upon examination patient's resting up in bed on room air. She does get short of breath with exertion and activity. She has had a slight cough with no sputum production. She denies any fevers or chills. She does complain of some right hip pain and orthopedics were consulted for that. She has had a good appetite, denies any recent weight loss or weight gain. The patient has never been worked up by a wind up operator in the past. She denies any home oxygen use any CPAP, nebulizers or MDIs. Interval History: 02/11/2018patient is being seen examined and evaluated today on rounds. She is resting up in bed on room air. She did undergo an ultrasound of the chest yesterday which did show a left fluid pocket of approximately 10.1 and a right fluid pocket approximately 10.7. Her heparin was shut off at 8 AM and a redraw of her PTT and labs as scheduled for 10 AM and those results are pending. Pending what her PTT as the patient will undergo a thoracentesis. She continues on Lasix twice a day. Feels her breathing is relatively stable today. Objective - Vital Signs Vital signs: Vital Signs Temp 96.7 F L 02/11/18 08:00 Pulse 89 02/11/18 08:30 Resp 16 02/11/18 08:00 BP 128/60 02/11/18 08:00 Pulse Ox 94 L 02/11/18 08:00 Intake & Output 02/10/18 02/11/18 02/11/18 18:59 06:59 18:59 Intake Total 531.6 159.735 220 Output Total 1950 850 Balance -1418.4 -690.265 220 Weight 67.7 kg Intake: Intake, IV Titration 351.6 159.735 Amount Heparin Sod,Pork in 0.45% 201.6 159.735 NaCl 25,000 unit In 0.45 % NaCl 1 500ml.bag @ 18 UNITS/KG/HR 24.84 mls/hr IV .Q20H8M [facility] Rx#: [id number] Sodium Chloride 0.9% 1, 150 000 ml @ 50 mls/hr IV . Q20H [facility] Rx#:[id number] Oral 180 220 Output: Urine 1950 850 Other: Voiding Method Bedpan Bedpan # Voids 2 1 # Bowel Movements 1 - Exam GENERAL EXAM: Alert, comfortable in no apparent distress. HEAD: Normocephalic. EYES: Normal reaction of pupils, equal size. NOSE: Clear with pink turbinates. THROAT: No erythema or exudates. NECK: No masses, no JVD. CHEST: No chest wall deformity. LUNGS: Lungs noted to have some coarse crackles in the bilateral bases. Breathing even and unlabored CVS: S1 and S2 normal with no audible mumurs, regular rhythm. ABDOMEN: No hepatosplenomegaly, normal bowel sounds, no guarding or rigidity. EXTREMITIES: Trace edema to the right lower extremity, +1 edema in the left lower extremity, pedal pulses palpable. CENTRAL NERVOUS SYSTEM: No focal deficits, tone is normal in all 4 extremities. - Labs CBC & Chem 7: 02/10/18 08:56 02/10/18 02:35 Labs: Abnormal Lab Results - Last 24 Hours (Table) 02/10/18 02/10/18 02/11/18 Range/Units 08:56 16:50 01:10 APTT 128.8 H* 77.3 H (22.0-30.0) sec Troponin I 0.065 H* (0.000-0.034) ng/mL Assessment and Plan Assessment: Assessment Pulmonary embolism Bilateral pleural effusions Pulmonary edema versus infiltrate Atrial fibrillation with poor controlled ventricular rate Acute exacerbation of CHF History of CAD and CABG in the past sign left lower leg edema Right degenerative localized arthritis of hip Mild pulmonary hypertension, RVSP 47.2 mmHg Plan Medications have been reviewed and will be continued as ordered. Heparin was put on hold at 8 AM. PTT to be redrawn approximately 10 AM Ultrasound of the chest, reviewed planned for thoracentesis Agree with diuresis Echocardiogram reviewed EF of 20-25% with mild pulmonary hypertension, RVSP 47.2 mmHg Initiate and encourage incentive spirometer Continue with pulmonary hygiene, coughing and deep breathing exercises, and supportive care. Supplemental oxygen to maintain oxygen saturations of 92% or better. Continue nebulizer treatments. Ortho recommends possible Right hip replacement once cardiac function improves GI and DVT prophylaxis. We will continue to monitor labs/results and adjust treatment as necessary. Thank you for this consultation we will continue to follow this patient with you I performed an examination of the patient and discussed their management with the nurse practitioner. I have reviewed the nurse practitioner's note and agree with the documented findings and plan of care.
[2018-02-11] MEDS: ASPIRIN 81 MG PO SCH (10:19)
[2018-02-11 10:37] LABS: Albumin 3.7 g/dL (3.5-5.0); Calcium 9.4 mg/dL (8.4-10.2); Potassium 3.9 mmol/L (3.5-5.1); Total Bilirubin 0.4 mg/dL (0.2-1.3); Total Protein 6.3 g/dL (6.3-8.2)
--- NOTE | 2018-02-11 11:18 | P.PCN ---
Date of Procedure: 02/11/18 Preoperative Diagnosis: Left pleural effusion Postoperative Diagnosis: Same Procedure(s) Performed: Thoracentesis Surgeon: Maddi Dutton Estimated Blood Loss (ml): 0 Condition: stable Disposition: floor Indications for Procedure: Left pleural effusion Description of Procedure: A time-out was completed verifying correct patient, procedure, site, positioning , and special equipment if applicable. The patient's left side was prepped and draped in a sterile manner after the appropriate infiltration level was confirmed by ultrasound. 1% lidocaine was used anesthetize the surrounding skin. A finder needle was then used to locate fluid and alvaro fluid was obtained. A 10-blade scalpel used to make the incision. The thoracentesis catheter was then threaded without difficulty. The patient had 500 mL of alvaro fluid removed. A post-procedure chest x-ray was ordered and the fluid will be sent for several studies. Estimated Blood Loss: 0 mL The patient tolerated the procedure well and there were no complications. Post-procedure CXR is pending.
--- NOTE | 2018-02-11 11:39 | XR ---
EXAMINATION TYPE: XR chest 1V portable DATE OF EXAM: 02/11/2018 COMPARISON: 02/09/2018 HISTORY: Shortness of breath TECHNIQUE: Single frontal view of the chest is obtained. FINDINGS: Postsurgical change with diffuse interstitial pattern. Elevated right hemidiaphragm. Heart size stable. No pneumothorax. Hypertrophic change of the AC joints. IMPRESSION: 1. Persistent interstitial process is stable from the prior exam. Differential diagnosis would includ e venous congestion, interstitial pneumonitis or atypical pneumonia.
--- NOTE | 2018-02-11 12:33 | P.PN ---
Subjective Progress Note Date: 02/11/18 This is a 72-year-old female with known history of coronary artery disease and prior bypass surgery in 2011 was admitted to the hospital with symptoms of shortness of breath and leg edema more on the left side than the right side. She was initially admitted to the MedSurg unit and was in A. fib with RVR transferred to [facility] care. She was given a dose of Lasix and was initiated on IV heparin. CTA of the chest was ordered which showed at least a solitary pulmonary embolus at the branch point of the distal left lower lobar pulmonary artery. No evidence of right heart strain small to moderate pleural effusions with diffuse septal lines developing patchy groundglass in the lower lungs, correlate for CHF and developing interstitial edema. Mediastinal lymphadenopathy measuring up to 1.8 cm which may be reactive. 46 week follow- up recommended after treatment to reassess sarcoidosis or granulomatous disease. Systemic infections, lymphoma, and metastatic disease are all in the differential at this time. Venous duplex of the right lower extremity was negative for DVT. Echocardiogram with Doppler study revealed an ejection fraction of 20-25% severe global hypokinesia. Moderate MR, moderate TR, large pleural effusion. Patient is currently on IV heparin, high intensity for the pulmonary embolism. Blood pressure this morning 120/70 with a heart rate in the 80s, 97% on room air. White blood cell count 12.0, hemoglobin 12.2, platelet count 300. BNP level 9030. At the time of her examination this morning, patient continues to feel short of breath. Denies any chest discomfort. 02/11/2018 Patient seen and examined this morning, heparin is currently on hold because the patient is scheduled to undergo thoracentesis, postthoracentesis the heparin will be resumed. We will initiate her on Eliquis for PE protocol, once a PE protocol timing is completed she will need to continue on Eliquis for anticoagulation because of her atrial fibrillation. Objective - Vital Signs Vital signs: Vital Signs Temp 97.7 F 02/11/18 11:34 Pulse 94 02/11/18 11:34 Resp 16 02/11/18 11:34 BP 127/70 02/11/18 11:34 Pulse Ox 94 L 02/11/18 11:34 Intake & Output 02/10/18 02/11/18 02/11/18 18:59 06:59 18:59 Intake Total 531.6 159.735 460 Output Total 1950 850 Balance -1418.4 -690.265 460 Weight 67.7 kg Intake: Intake, IV Titration 351.6 159.735 Amount Heparin Sod,Pork in 0.45% 201.6 159.735 NaCl 25,000 unit In 0.45 % NaCl 1 500ml.bag @ 18 UNITS/KG/HR 24.84 mls/hr IV .Q20H8M [facility] Rx#: [id number] Sodium Chloride 0.9% 1, 150 000 ml @ 50 mls/hr IV . Q20H [facility] Rx#:[id number] Oral 180 460 Output: Urine 1950 850 Other: Voiding Method Bedpan Bedpan # Voids 2 1 # Bowel Movements 1 - Exam PHYSICAL EXAMINATION: GENERAL: 72-year-old female in no acute distress at the time of my examination HEENT: Head is atraumatic, normocephalic. Pupils equal, round. Sclera anicteric. Conjunctiva are clear. Mucous membranes of the mouth are moist. Neck is supple. There is elevated jugular venous pressure. No carotid bruit is heard. HEART EXAMINATION: Heart S1-S2 irregularly irregular a systolic murmur is heard. CHEST EXAMINATION: Lungs are clear with diminished air entry to the bases, left greater than right ABDOMEN: Soft, nontender. Bowel sounds are heard. No organomegaly noted. EXTREMITIES: 2+ peripheral pulses with no evidence of peripheral edema and no calf tenderness noted. NEUROLOGIC patient is awake, alert and oriented X3. . - Labs CBC & Chem 7: 02/11/18 09:55 02/11/18 09:55 Labs: Abnormal Lab Results - Last 24 Hours (Table) 02/10/18 02/11/18 02/11/18 Range/Units 16:50 01:10 09:55 WBC 12.7 H (3.8-10.6) k/uL MCHC 30.5 L (31.0-37.0) g/dL APTT 128.8 H* 77.3 H (22.0-30.0) sec BUN (7-17) mg/dL Glucose (74-99) mg/dL 02/11/18 02/11/18 Range/Units 09:55 09:55 WBC (3.8-10.6) k/uL MCHC (31.0-37.0) g/dL APTT 33.0 H (22.0-30.0) sec BUN 27 H (7-17) mg/dL Glucose 127 H (74-99) mg/dL Assessment and Plan Plan: Assessment and plan #1 Symptoms of shortness of breath with evidence of systolic congestive heart failure acute on chronic and bilateral effusions. #2 evidence of pulmonary embolism on CT of the chest #3 hypertension #4 hyperlipidemia #5 history of coronary artery disease with prior bypass surgery #6 ischemic cardiomyopathy with documented ejection fraction of 20% #7 persistent atrial fibrillation Plan Cardiology's perspective, we'll continue patient on her current medications. Postthoracentesis heparin will be resumed, then we will start the patient on Eliquis per PE protocol. Once the protocol is completed patient will need to remain on Eliquis at a dose for atrial fibrillation, for stroke prevention. DNP note has been reviewed, I agree with a documented findings and plan of care. Patient was seen and examined.
--- NOTE | 2018-02-11 13:03 | HP ---
HISTORY AND PHYSICAL DATE OF SERVICE: 02/10/2018 CHIEF COMPLAINT: A 72-year-old white female with history of coronary artery disease, CABG in 2011. No medications. She has had increasing wheezing and shortness of breath over the past few weeks. She was found to be in atrial fibrillation, rapid ventricular response at which time I would direct admitted her with heart rates in the 140s but can start her on a low dose Tenormin. Consult Cardiology, order and echo and gave her possibly some Lasix for shortness of breath. Order CTA to rule out PE. She has elevated D-dimer. PAST MEDICAL HISTORY: CABG, coronary artery disease, arthritis/ FAMILY HISTORY: Father had heart disease and VT. SOCIAL DISEASE: Lives with her , many years. No smoking. No alcohol. REVIEW OF SYSTEMS: A 14 point review of systems negative except from as mentioned in cardiac, PND, orthopnea PND. PHYSICAL EXAM: Blood pressure 130/72, respiratory rate 18 to 20, heart rates in the 80s to 90s. CARDIOVASCULAR: Tachycardic, irregularly irregular rhythm. LUNGS: Show rales at the bases. ABDOMEN: Soft. EXTREMITIES: Show 2+ pedal edema bilaterally. EKG, atrial fibrillation, nonspecific ST changes. IMPRESSION: 1. Suspect acute congestive heart failure, unclear etiology with atrial fibrillation with rapid ventricular response. 2. History of coronary artery bypass. Cardiology is consulted, possibly Pulmonary consult for elevated D-dimer. Please see further orders. MMODL / IJN: [id number] /
--- NOTE | 2018-02-11 13:13 | PN ---
PROGRESS NOTE DATE OF SERVICE: 02/11/2018 SUBJECTIVE: A 72-year-old white female admitted to the hospital with congestive heart failure and possibly a CTA showed pulmonary embolism x1, some pleural effusions and ground glass lower lung zabala, interstitial edema. She has never been on blood thinners. She will need a blood thinner for atrial fibrillation any ways and will have to place her one for this possibly pulmonary embolism. She is an ex-smoker for 40 years. She has never seen a doctor in many years as mentioned. She had a 10 cm pocket of fluid that was tapped today. PSYCH: She appears a little anxious. CARDIOVASCULAR: S1, S2. Irregular, irregular rhythm. Lungs show some coarse crackles in both bases. Labs show white count is 12, hemoglobin 12.2, BUN 27, creatinine 0.89, elevated troponin of 0.06. ASSESSMENT: 1. Pulmonary Embolism. 2. Bilateral pleural effusions. 3. Pulmonary edema versus infiltrate. 4. Atrial fibrillation with poorly controlled rapid ventricular rate. 5. Acute congestive heart failure. 6. History of coronary artery bypass grafting and coronary artery disease in the past. 7. Osteoarthritis of the hip. 8. Ejection fraction on the echo shows 20% to 25%, so she has acute systolic congestive heart failure on top of atrial fibrillation, rapid with poorly controlled ventricular response and a pulmonary embolism. She is very sick. Continue with Lasix 40 mg p.o. b.i.d., atorvastatin 20 daily, aspirin 81 mg daily, Zestril 5 mg daily, metoprolol 25 b.i.d., pain control. She is on heparin drip, possibly switch to one of the newer agents, like Entresto for his systolic CHF and Eliquis for pulmonary embolism. MMODL / IJN: [id number] /
[2018-02-11 14:06] LABS: Appearance,BF Hazy; Color,BF Yellow; Nucleated Cells, Body Fluid 600 /uL; RBC, Body Fluid 1520 /uL
[2018-02-11 14:08] LABS: Mononuclear WBC,Body Fluid 91 %; Polynuclear WBC,Body Fluid 9 %; Total Cells Counted,Body Fluid 100
[2018-02-11 18:06] LABS: Total Protein, Body Fluid 1700 mg/dL
[2018-02-12 07:23] LABS: HCT 39.5 % (34.0-46.0); HGB 12.3 gm/dL (11.4-16.0); Hypochromasia Slight; MCH 27.1 pg (25.0-35.0); MCV 87.5 fL (80.0-100.0); Mean Platelet Volume 7.2; Platelet Count 314 k/uL (150-450); RBC 4.52 m/uL (3.80-5.40); RDW 15.5 % (11.5-15.5); WBC 15.5 k/uL (3.8-10.6)
[2018-02-12 07:31] LABS: Potassium 4.1 mmol/L (3.5-5.1); Total Bilirubin 0.6 mg/dL (0.2-1.3); Total Protein 6.7 g/dL (6.3-8.2)
[2018-02-12 08:08] LABS: Calcium 9.3 mg/dL (8.4-10.2)
[2018-02-12 08:28] LABS: Eosinophils # (M) 0.78 k/uL (0-0.7); Lymphocytes # (M) 6.98 k/uL (1.0-4.8); Monocytes # (M) 1.55 k/uL (0-1.0); Neutrophils % (M) 40 %; Nucleated Red Blood Cells 0 /100 WBC (0-0); Total Cells Counted 100
[2018-02-12] MEDS: ASPIRIN 81 MG PO SCH (08:45)
[2018-02-12] MEDS: METOPROLOL TARTRATE 25 MG TAB PO SCH ×2 (08:46→20:21)
[2018-02-12] MEDS: ATORVASTATIN 20 MG TAB PO SCH (08:46)
[2018-02-12] MEDS: FUROSEMIDE 40 MG TAB PO SCH ×2 (08:46→16:30)
[2018-02-12] MEDS: LISINOPRIL 5 MG TAB PO SCH (08:46)
--- NOTE | 2018-02-12 10:25 | P.PN ---
<Kait Evans E - Last Filed: 02/12/18 10:21> Subjective Progress Note Date: 02/12/18 History of present illness: This is a 72-year-old female being seen examined and evaluated today for consultation. This patient does have a history of CAD, CABG in 2012, and osteoarthritis. The patient was a direct admit from Dr. Sosa's office. The patient states she had been having shortness of breath for the past one half weeks. She also noted to have some increased swelling in her bilateral lower extremities more so on the left than the right. She did have an ultrasound of the right lower extremity which was negative but they did not Doppler the left side which was more edematous. She was also noted to have a d-dimer that was slightly elevated at 0.85. She did have a CTA of the chest which did show a solitary pulmonary embolism at the branch point of the distal lower left lobar pulmonary artery. The contrast was not adequate to reach the lung bases to assess for further PEs. She also noted to have small to moderate pleural effusions and developing patchy groundglass in the lower lungs correlate for CHF and developing interstitial edema, confluent pulmonary edema versus infiltrate in the inferior lingula, she also had mediastinal lymphadenopathy measuring up to 1.8 cm which could be reactive. The patient has never had a PE or DVT in the past. Denies any recent travel. Denies any hormone replacement or any history of cancer in the past. She has never been on blood thinners. She did have an echocardiogram which is currently pending. She is a previous ex -smoker of approximately 1 pack per day for approximately 40 years. 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 She does have a cat and a dog in the home. She denies any environmental toxic inhalation exposures. Occasionally does experience seasonal ALLERGIES. She states that she has never had a sleep study and her is older she snores quite loudly. Upon examination patient's resting up in bed on room air. She does get short of breath with exertion and activity. She has had a slight cough with no sputum production. She denies any fevers or chills. She does complain of some right hip pain and orthopedics were consulted for that. She has had a good appetite, denies any recent weight loss or weight gain. The patient has never been worked up by a radiologic tech in the past. She denies any home oxygen use any CPAP, nebulizers or MDIs. Interval History: 02/11/2018patient is being seen examined and evaluated today on rounds. She is resting up in bed on room air. She did undergo an ultrasound of the chest yesterday which did show a left fluid pocket of approximately 10.1 and a right fluid pocket approximately 10.7. Her heparin was shut off at 8 AM and a redraw of her PTT and labs as scheduled for 10 AM and those results are pending. Pending what her PTT as the patient will undergo a thoracentesis. She continues on Lasix twice a day. Feels her breathing is relatively stable today. 02/12/18- patient is being seen examined and evaluated today on rounds. She is resting up in bed on room air. She did undergo a left-sided thoracentesis yesterday. Approximately 500 ML's of alvaro fluid was sent to the lab for further workup. Patient will be undergoing a right sided thoracentesis today. We will put the heparin on hold at 12 and draw APTT at approximately 2 PM. Patient states that her breathing is better today. Cardiology also continues to follow. Objective - Vital Signs Vital signs: Vital Signs Temp 97.7 F 02/11/18 20:00 Pulse 109 H 02/12/18 04:00 Resp 18 02/12/18 04:00 BP 134/84 02/12/18 04:00 Pulse Ox 95 02/12/18 04:00 Intake & Output 02/11/18 02/12/18 02/12/18 18:59 06:59 18:59 Intake Total 814.665 157.507 100 Output Total 350 Balance 814.665 -192.493 100 Weight 67 kg Intake: IV 40 .9 40 Intake, IV Titration 174.665 117.507 Amount Heparin Sod,Pork in 0.45% 174.665 117.507 NaCl 25,000 unit In 0.45 % NaCl 1 500ml.bag @ 18 UNITS/KG/HR 24.84 mls/hr IV .Q20H8M [facility] Rx#: [id number] Oral 640 100 Output: Urine 350 Other: Voiding Method Bedpan # Voids 1 # Bowel Movements 1 - Exam GENERAL EXAM: Alert, comfortable in no apparent distress. HEAD: Normocephalic. EYES: Normal reaction of pupils, equal size. NOSE: Clear with pink turbinates. THROAT: No erythema or exudates. NECK: No masses, no JVD. CHEST: No chest wall deformity. LUNGS: Lungs noted to have some coarse crackles in the bilateral bases. Breathing even and unlabored and proved aeration to the left side CVS: S1 and S2 normal with no audible mumurs, regular rhythm. ABDOMEN: No hepatosplenomegaly, normal bowel sounds, no guarding or rigidity. EXTREMITIES: Trace edema to the right lower extremity, +1 edema in the left lower extremity, pedal pulses palpable. CENTRAL NERVOUS SYSTEM: No focal deficits, tone is normal in all 4 extremities. - Labs CBC & Chem 7: 02/12/18 06:31 02/12/18 06:31 Labs: Abnormal Lab Results - Last 24 Hours (Table) 02/11/18 02/11/18 02/12/18 Range/Units 09:55 18:22 00:46 WBC (3.8-10.6) k/uL Lymphocytes # (Manual) (1.0-4.8) k/uL Monocytes # (Manual) (0-1.0) k/uL Eosinophils # (Manual) (0-0.7) k/uL APTT 43.3 H 49.7 H (22.0-30.0) sec BUN 27 H (7-17) mg/dL Glucose 127 H (74-99) mg/dL 02/12/18 02/12/18 02/12/18 Range/Units 06:31 06:31 06:31 WBC 15.5 H (3.8-10.6) k/uL Lymphocytes # (Manual) 6.98 H (1.0-4.8) k/uL Monocytes # (Manual) 1.55 H (0-1.0) k/uL Eosinophils # (Manual) 0.78 H (0-0.7) k/uL APTT 67.9 H (22.0-30.0) sec BUN 23 H (7-17) mg/dL Glucose 120 H (74-99) mg/dL Microbiology - Last 24 Hours (Table) 02/11/18 10:45 Gram Stain - Preliminary Pleural Fluid Body Fluid Culture - Preliminary 02/11/18 10:45 Anaerobic Culture - Preliminary Pleural Fluid Assessment and Plan Assessment: Assessment Pulmonary embolism Bilateral pleural effusions Pulmonary edema versus infiltrate Atrial fibrillation with poor controlled ventricular rate Acute exacerbation of CHF History of CAD and CABG in the past sign left lower leg edema Right degenerative localized arthritis of hip Mild pulmonary hypertension, RVSP 47.2 mmHg Eosinophilia Plan Medications have been reviewed and will be continued as ordered. Heparin will be put on hold at 12 PM. PTT to be redrawn approximately 2 PM Ultrasound of the chest, reviewed planned for thoracentesis Status post left thoracentesis Right thoracentesis today Agree with diuresis Echocardiogram reviewed EF of 20-25% with mild pulmonary hypertension, RVSP 47.2 mmHg Initiate and encourage incentive spirometer Continue with pulmonary hygiene, coughing and deep breathing exercises, and supportive care. Supplemental oxygen to maintain oxygen saturations of 92% or better. Continue nebulizer treatments. Ortho recommends possible Right hip replacement once cardiac function improves GI and DVT prophylaxis. We will continue to monitor labs/results and adjust treatment as necessary. Thank you for this consultation we will continue to follow this patient with you I performed an examination of the patient and discussed their management with the nurse practitioner. I have reviewed the nurse practitioner's note and agree with the documented findings and plan of care. <Maddi Dutton A - Last Filed: 02/12/18 13:57> Objective - Vital Signs Vital signs: Vital Signs Temp 97.7 F 02/11/18 20:00 Pulse 99 02/12/18 12:10 Resp 18 02/12/18 12:10 BP 114/64 02/12/18 12:10 Pulse Ox 94 L 02/12/18 12:10 Intake & Output 02/11/18 02/12/18 02/12/18 18:59 06:59 18:59 Intake Total 814.665 157.507 280 Output Total 350 Balance 814.665 -192.493 280 Weight 67 kg Intake: IV 40 .9 40 Intake, IV Titration 174.665 117.507 Amount Heparin Sod,Pork in 0.45% 174.665 117.507 NaCl 25,000 unit In 0.45 % NaCl 1 500ml.bag @ 18 UNITS/KG/HR 24.84 mls/hr IV .Q20H8M [facility] Rx#: [id number] Oral 640 280 Output: Urine 350 Other: Voiding Method Bedpan Bedpan # Voids 1 1 # Bowel Movements 1 - Labs CBC & Chem 7: 02/12/18 06:31 02/12/18 06:31 Labs: Abnormal Lab Results - Last 24 Hours (Table) 02/11/18 02/12/18 02/12/18 Range/Units 18:22 00:46 06:31 WBC 15.5 H (3.8-10.6) k/uL Lymphocytes # (Manual) 6.98 H (1.0-4.8) k/uL Monocytes # (Manual) 1.55 H (0-1.0) k/uL Eosinophils # (Manual) 0.78 H (0-0.7) k/uL APTT 43.3 H 49.7 H (22.0-30.0) sec BUN (7-17) mg/dL Glucose (74-99) mg/dL 02/12/18 02/12/18 Range/Units 06:31 06:31 WBC (3.8-10.6) k/uL Lymphocytes # (Manual) (1.0-4.8) k/uL Monocytes # (Manual) (0-1.0) k/uL Eosinophils # (Manual) (0-0.7) k/uL APTT 67.9 H (22.0-30.0) sec BUN 23 H (7-17) mg/dL Glucose 120 H (74-99) mg/dL Microbiology - Last 24 Hours (Table) 02/11/18 10:45 Gram Stain - Preliminary Pleural Fluid Body Fluid Culture - Preliminary 02/11/18 10:45 Anaerobic Culture - Preliminary Pleural Fluid Assessment and Plan Assessment: Plan for thoracentesis on the right today. See procedure note. ~Maddi Dutton DO
[2018-02-12] MEDS: IPRATROPIUM-ALBUTEROL 3 ML NEB INHALATION SCH ×4 (10:54→19:35)
--- NOTE | 2018-02-12 14:57 | P.PCN ---
Date of Procedure: 02/12/18 Preoperative Diagnosis: right pleural effusion Postoperative Diagnosis: same Procedure(s) Performed: right thoracentesis Surgeon: Maddi Dutton Security Architect #1: Kait Evans Estimated Blood Loss (ml): 0 Condition: stable Disposition: floor Indications for Procedure: right pleural effusion Description of Procedure: A time-out was completed verifying correct patient, procedure, site, positioning , and special equipment if applicable. The patient's right side was prepped and draped in a sterile manner after the appropriate infiltration level was confirmed by ultrasound. 1% lidocaine was used anesthetize the surrounding skin. A finder needle was then used to locate fluid and alvaro fluid was obtained. A 10-blade scalpel used to make the incision. The thoracentesis catheter was then threaded without difficulty. The patient had 350 mL of alvaro fluid removed. A post-procedure chest x-ray was ordered and the fluid will be sent for several studies. Estimated Blood Loss: 0 mL The patient tolerated the procedure well and there were no complications. Post-procedure CXR will be obtained.
--- NOTE | 2018-02-12 16:20 | XR ---
EXAMINATION TYPE: XR chest 1V portable DATE OF EXAM: 02/12/2018 COMPARISON: Prior chest 02/11/2018 HISTORY: Status post right thoracentesis TECHNIQUE: Single frontal view of the chest is obtained. FINDINGS: Patient is post median sternotomy. There is no pneumothorax or sizable effusion. Heart is stable. Interstitium mildly increased. Aorta is dense. IMPRESSION: No evident complication status post thoracentesis.
[2018-02-12 16:29] LABS: Appearance,BF Cloudy; Color,BF Yellow
[2018-02-12 16:59] LABS: Nucleated Cells, Body Fluid 600 /uL; RBC, Body Fluid 1400 /uL
[2018-02-12 17:01] LABS: Mononuclear WBC,Body Fluid 95 %; Polynuclear WBC,Body Fluid 5 %; Total Cells Counted,Body Fluid 100
[2018-02-12] MEDS: HEPARIN SOD,PORK IN 0.45% NACL 25,000 UNIT in 0.45% NACL 1 500ML.BAG IV SCH (19:04)
--- NOTE | 2018-02-12 21:57 | PN ---
PROGRESS NOTE SUBJECTIVE: 72-year-old white female with COPD, atrial fibrillation, acute on chronic rapid ventricular response, now controlled with blood pressure pills, acute systolic CHF treated with atenolol and Lasix. Remains on IV heparin for pulmonary embolism. We will think about stopping that and go to oral anticoagulation, possibly Eliquis 2.5 b.i.d. or 5 mg b.i.d. will be given and she possibly could go home next day or 2. Lungs: Clear. CARDIOVASCULAR: S1, S2. Irregular regular rhythm. Abdomen is soft. Hematology negative Homans. Psych: Fair mood and affect. ASSESSMENT: 1. Atrial fibrillation, rapid ventricular response. 2. Acute pulmonary embolism. 3. Acute systolic congestive heart failure. 4. Hypertension. 5. Acute respiratory distress secondary to above. Please see further orders. MMODL / IJN: [id number] /
[2018-02-12] MEDS: APIXABAN 5 MG TAB PO SCH (23:14)
[2018-02-13 02:34] LABS: Total Protein, Body Fluid 2300 mg/dL
[2018-02-13 06:35] LABS: Basophils # (A) 0.1 k/uL (0-0.2); Basophils % (A) 1 %; Eosinophils # (A) 0.6 k/uL (0-0.7); Eosinophils % (A) 5 %; HCT 37.9 % (34.0-46.0); HGB 11.9 gm/dL (11.4-16.0); Hypochromasia Slight; Lymphocytes # (A) 3.5 k/uL (1.0-4.8); Lymphocytes % (A) 28 %; MCH 27.4 pg (25.0-35.0); MCHC 31.4 g/dL (31.0-37.0); MCV 87.5 fL (80.0-100.0); Mean Platelet Volume 6.8; Monocytes # (A) 0.7 k/uL (0-1.0); Monocytes % (A) 6 %; Neutrophils # (A) 7.7 k/uL (1.3-7.7); Neutrophils % (A) 60 %; Platelet Count 296 k/uL (150-450); RBC 4.34 m/uL (3.80-5.40); RDW 15.5 % (11.5-15.5); WBC 12.9 k/uL (3.8-10.6)
[2018-02-13 06:45] LABS: Albumin 3.9 g/dL (3.5-5.0); Calcium 9.3 mg/dL (8.4-10.2); Potassium 4.1 mmol/L (3.5-5.1); Total Bilirubin 0.5 mg/dL (0.2-1.3); Total Protein 6.5 g/dL (6.3-8.2)
[2018-02-13] MEDS: ATORVASTATIN 20 MG TAB PO SCH (08:38)
[2018-02-13] MEDS: ASPIRIN 81 MG PO SCH (08:38)
[2018-02-13] MEDS: FUROSEMIDE 40 MG TAB PO SCH (08:38)
[2018-02-13] MEDS: IPRATROPIUM-ALBUTEROL 3 ML NEB INHALATION SCH ×2 (08:38→11:40)
[2018-02-13] MEDS: APIXABAN 5 MG TAB PO SCH (08:38)
[2018-02-13] MEDS: LISINOPRIL 5 MG TAB PO SCH (08:39)
[2018-02-13] MEDS: METOPROLOL TARTRATE 25 MG TAB PO SCH (08:39)
[2018-02-13 08:42] VITALS: RESP 18; TEMP 97.4
[2018-02-13 11:53] VITALS: BP 104/56; PULSE 99
--- NOTE | 2018-02-13 14:01 | PN ---
PROGRESS NOTE DATE OF SERVICE: 02/13/2018 She is hemodynamically stable. She is not complaining of any shortness of breath today. PHYSICAL EXAMINATION: Her blood pressure is 104/56, respiratory rate is 16, pulse rate of 99. She is afebrile. HEENT is unremarkable. Chest is clear. Cardiovascular system is S1, S2. Abdomen is soft. There is no pedal edema. IMPRESSION: 1. Atrial fibrillation with rapid ventricular rate. 2. Acute pulmonary embolus. 3. Congestive heart failure with right pleural effusion, status post thoracentesis. Would increase her activity level, continue anticoagulation. Agree with possible discharge planning on her with close outpatient followup. MMODL / IJN: [id number] /
--- NOTE | 2018-02-13 21:10 | DS ---
DISCHARGE SUMMARY DISCHARGE DIAGNOSES: 1. Acute systolic congestive heart failure. 2. Atrial fibrillation with rapid ventricular response. 3. Acute hypoxemic respiratory distress. 4. Acute pulmonary embolism. 5. Hypertension. 6. Dyslipidemia. HOME MEDICINES: Lasix 40 b.i.d., Eliquis 5 mg b.i.d., atenolol 25 mg b.i.d., lisinopril 5 mg daily. CONDITION: Stable. PROGNOSIS: Guarded. Ambulate as tolerated. HOSPITAL COURSE OF EVENTS: This is a white female who came in with atrial fibrillation with rapid ventricular response, is placed on Tenormin to control the heart rate, given Eliquis for atrial fibrillation for stroke prophylaxis as well as she was found to have acute systolic heart failure on echo. She was started on Eliquis for anticoagulation for pulmonary embolism as well as atrial fibrillation with rapid ventricular response for prophylaxis after given IV heparin for 3 days. GAVIN inhibitors are started. Diuresis with Lasix is given. Her breathing improved. She went home on room air, oxygenation 95 to 97%, ambulating around the room on room air. Follow up Dr. Gaytan's office in a week. Condition stable. Prognosis guarded. MMODL / IJN: [id number] /
== END 2018-02-13 14:56 | disposition home or self-care (01) | DRG 291 ==
LOC: 5MS5E 14:39 → 6SEL 18:38
PROVIDERS: ADMIT Family Medicine; ATTEND Family Medicine
PROC: 0W9B3ZX Drainage of Left Pleural Cavity, Percutaneous Approach, Diagnostic (ICD-10-PCS; principal; 2018-02-11)
PROC: 0W993ZZ Drainage of Right Pleural Cavity, Percutaneous Approach (ICD-10-PCS; 2018-02-12)
DX: I11.0 Hypertensive heart disease with heart failure (principal); I26.99 Other pulmonary embolism without acute cor pulmonale; I50.23 Acute on chronic systolic (congestive) heart failure; I48.1 Persistent atrial fibrillation; J91.8 Pleural effusion in other conditions classified elsewhere; R06.03 Acute respiratory distress; I25.5 Ischemic cardiomyopathy; I27.20 Pulmonary hypertension, unspecified; J44.9 Chronic obstructive pulmonary disease, unspecified; D86.9 Sarcoidosis, unspecified; K76.0 Fatty (change of) liver, not elsewhere classified; J30.2 Other seasonal allergic rhinitis; I25.10 Atherosclerotic heart disease of native coronary artery without angina pectoris; M16.11 Unilateral primary osteoarthritis, right hip; R32 Unspecified urinary incontinence; E78.5 Hyperlipidemia, unspecified; M54.9 Dorsalgia, unspecified; R59.0 Localized enlarged lymph nodes; H26.9 Unspecified cataract; F40.240 Claustrophobia; Z87.891 Personal history of nicotine dependence; Z95.1 Presence of aortocoronary bypass graft; Z98.51 Tubal ligation status; Z98.1 Arthrodesis status; Z82.49 Family history of ischemic heart disease and other diseases of the circulatory system; Z79.899 Other long term (current) drug therapy; Z88.6 Allergy status to analgesic agent; Z88.2 Allergy status to sulfonamides
CPT/HCPCS: 71045; 71046; 71275; 73502; 76604; 80053; 80061; 81001; 82945; 83036; 83615; 83735; 83880; 84157; 84443; 84484; 85025; 85379; 85610; 85730; 87070; 87075; 87205; 88108; 88305; 88341; 88342; 89050; 93005; 93306; 94640

== ENCOUNTER → 2018-05-19 | Outpatient (CLI) | payer MEDICARE ==
[2018-05-19 13:16] LABS: Anisocytosis Slight; HCT 42.2 % (34.0-46.0); HGB 13.2 gm/dL (11.4-16.0); Hypochromasia Moderate; MCH 27.4 pg (25.0-35.0); MCHC 31.2 g/dL (31.0-37.0); MCV 87.8 fL (80.0-100.0); Mean Platelet Volume 6.9; Platelet Count 389 k/uL (150-450); RDW 16.2 % (11.5-15.5); WBC 11.2 k/uL (3.8-10.6)
[2018-05-19 13:19] LABS: INR 1.1 (<1.2); Partial Thromboplastin Time 25.7 sec (22.0-30.0); Prothrombin Time 11.1 sec (9.0-12.0)
[2018-05-19 13:30] LABS: Albumin 4.1 g/dL (3.5-5.0); Calcium 10.2 mg/dL (8.4-10.2); Potassium 5.4 mmol/L (3.5-5.1); Total Bilirubin 0.8 mg/dL (0.2-1.3); Total Protein 7.1 g/dL (6.3-8.2)
[2018-05-19 14:08] LABS: Appearance,Urine Cloudy (Clear); Bacteria,Urine Many /hpf; Bilirubin,Urine Negative (Negative); Blood,Urine Moderate (Negative); Color,Urine Yellow; Glucose,Urine (UA) Negative (Negative); Ketones,Urine Negative (Negative); Leukocyte Esterase,Urine Large (Negative); Mucus,Urine Rare /hpf; Nitrite,Urine Negative (Negative); Protein,Urine 1+ (Negative); RBC,Urine 36 /hpf (0-5); Specific Gravity,Urine 1.014 (1.001-1.035); Squamous Epithelial Cell,Urine <1 /hpf (0-4); Urobilinogen,Urine <2.0 mg/dL (<2.0); WBC,Urine 31 /hpf (0-5)
== END | disposition home or self-care (01) ==
LOC: LABPAT 11:42
PROVIDERS: ATTEND Orthopaedic Surgery
DX: Z01.812 Encounter for preprocedural laboratory examination (principal); Z79.01 Long term (current) use of anticoagulants
CPT/HCPCS: 80053; 81001; 85027; 85610; 85730; 87070

== ENCOUNTER 2018-05-24 05:35 | Inpatient (IN) | payer MEDICARE ==
[2018-05-20 11:37] VITALS: BMI 23.8
[~2018-05-24 05:35] MED LIST: LIDOCAINE 1% 20 ML VIAL (10MG/ML) FOR IV START INTRADERMA PRN; MELOXICAM 7.5 MG TAB PO ONE; MIDAZOLAM (PF) 2 MG/2 ML VIAL IV PRN; TRANEXAMIC ACID 1,000 MG in SODIUM CHLORIDE 0.9% 50 ML IVPB ONE; ceFAZolin IN SWFI 2 GM/20 ML SYRINGE IVP ONE; fentaNYL (PF) 50 MCG/ML 2 ML AMP IV PRN
[2018-05-24] MEDS ORDERED: ROPIVACAINE 246.25 MG, EPINEPHrine 0.5 MG, KETOROLAC 30 MG, cloNIDine HCL/PF 80 MCG, WA... MISCELLANE ONE ×5 (06:05)
[2018-05-24] MEDS: LACTATED RINGERS 1,000 ML IV SCH ×2 (06:10→20:06)
[2018-05-24] MEDS ORDERED: HYDROcodone/APAP 5-325MG 1 EACH TAB PO PRN ×2 (06:52)
[2018-05-24] MEDS ORDERED: MAGNESIUM HYDROXIDE 2,400 MG/10 ML CUP PO PRN (06:52)
[2018-05-24] MEDS ORDERED: NALOXONE 0.4 MG/ML 1 ML VIAL IV PRN (06:52)
[2018-05-24] MEDS ORDERED: HYDROmorphone 0.5 MG/0.5 ML SYRINGE IVP PRN ×3 (06:52)
[2018-05-24] MEDS ORDERED: DIAZEPAM 5 MG TAB PO PRN (06:52)
[2018-05-24] MEDS ORDERED: hydrOXYzine PAMOATE 25 MG CAP PO PRN (06:52)
[2018-05-24] MEDS ORDERED: traMADol 50 MG TAB PO PRN (06:57)
[2018-05-24] MEDS ORDERED: fentaNYL (PF) 50 MCG/ML 2 ML AMP ONE (07:00)
[2018-05-24] MEDS ORDERED: LACTATED RINGERS 1,000 ML BAG IV ONE (07:00)
[2018-05-24] MEDS ORDERED: MIDAZOLAM 2 MG/2 ML VIAL ONE (07:00)
[2018-05-24] MEDS ORDERED: HEPARIN SODIUM,PORCINE 10,000 UNIT/ML 1 ML VIAL ONE (07:00)
[2018-05-24] MEDS ORDERED: ceFAZolin 3,000 MG in SODIUM CHLORIDE 0.9% IRRIGATIO 3,000 ML IRRIGATION ONE (07:35)
--- NOTE | 2018-05-24 08:37 | P.OP ---
Date of Procedure: 05/24/18 Preoperative Diagnosis: Severe osteoarthritis right hip Postoperative Diagnosis: Severe osteoarthritis right hip Procedure(s) Performed: Right total hip arthroplasty with a direct anterior approach Implants: Stern and nephew Polarstem size 4 standard Stern & Nephew R3, 3 hole acetabular shell, 48 mm Stern [employer] Nephew reflection 6.5 mm cancellus screw, 20 mm 2 Stern [employer] Nephew R3, XLPE 20 acetabular liner Stern & Nephew Oxinium femoral head 32 m, +4 All components were press-fit. The articulation is Oxinium on polyethylene. Anesthesia: spinal Surgeon: Darrel Dean Manager Health #1: Kait Menjivar Estimated Blood Loss (ml): 100 Pathology: other (Femoral head) Condition: stable Disposition: PACU Indications for Procedure: After failure of conservative treatment we discussed the surgical and nonsurgical treatment options at length. Patient wishes to proceed with a total hip arthroplasty with a direct anterior approach. Complications specific to this procedure were discussed at length, including but not limited to infection, leg length discrepancy, dislocation, and nerve injury. Patient is aware of all these complications and informed consent was obtained Operative Findings: The operative findings are consistent with severe osteoarthritis of the right hip Description of Procedure: Patient was seen and evaluated in the preoperative area, consent was reviewed, and the surgical site was marked with a skin marker. Patient was then brought to the operating room and given prophylactic antibiotics intravenously. A spinal anesthetic was administered by the anesthesia department. The patient was then placed on the [place] table with the bony prominences well-padded. The hip area was then prepped and draped in usual sterile fashion. A universal timeout was then performed, which confirmed the patient's name, surgical site, ALLERGIES, and procedure being performed. Next the incision site was located at 1 cm distal and 1 cm lateral to the anterior superior iliac spine. The skin and subcutaneous tissues were sharply incised. Incision was carefully dissected down to the fascia overlying the tensor fascia jenni muscle. This fascia was then incised in line with the incision. Next, using blunt finger dissection, the tensor fascia jenni muscle was dissected off its investing fascia. The muscle was then carefully retracted laterally with a cobra retractor over the lateral neck of the femur. Next, the circumflex vessels were identified and cauterized using the AquaMantis device. The anterior hip capsule was then exposed. The capsule was then opened and an inverted T fashion. Cobra retractors were then placed intracapsularly. The proximal femur was then visualized. The femoral neck was then osteotomized appropriate level above the lesser trochanter. Small amount of traction was placed with the [place] table. A small wedge of bone was then removed from the remaining femoral head. Next, using a corkscrew femoral head was easily removed from the acetabulum. On gross visual inspection, the femoral head had complete loss of articular cartilage in multiple periarticular osteophytes. Attention was then turned to the acetabulum. the acetabulum was exposed and any remaining labrum was excised. Sequential reaming of the acetabulum was performed using fluoroscopic guidance. When the appropriate size was reached, a trial was then placed. The position and fit of the trial was checked with fluoroscopy. The trial was then removed. Then, using fluoroscopic guidance, the final implant was impacted at 20 of anteversion and 40 of abduction, and fully seated in the acetabulum. 2 screws were then placed in the acetabulum. Again fluoroscopy was used to check position of the screws. Next, the liner was then impacted, with a 20 elevated liner located in the anterior superior quadrant. Component locking was confirmed. Attention was then directed to the femur. With the aid of the [place] table, the femur was externally rotated to approximately 130, extended, and abducted under the opposite leg. A side hook was then placed under the proximal femur, and the side hook elevator was used to elevate the proximal femur. Retractors were then placed. A capsular release was performed, as well as a release of the conjoined tendon, which afforded excellent visualization of the proximal femur. Next, a box osteotome was used to lateralize the proximal femur. A coal handling supervisor was then used to locate the femoral canal. Sequential broaching was then performed with appropriate size which afforded excellent fixation in the proximal femur. A trial was then placed with appropriate head and neck, and the hip was gently reduced with the aid of the [place] table. Fluoroscopy was then used to check position of the components, as well as to ensure equal leg lengths. The hip was then gently dislocated and the trials were then removed. Final implants were then impacted and the hip was again reduced. Final fluoroscopic x-rays confirmed that the components were in anatomic position, as well as equal leg lengths. The hip was also taken through range of motion, and found to be stable. The hip was then copiously irrigated with antibiotic solution with pulsatile lavage. The hip was then irrigated with Irrisept solution. The soft tissues were then injected with a ropivacaine solution, which consisted of 246.25 mg of ropivacaine, 0.5 mg of epinephrine, 30 mg of Toradol, 80 g of clonidine, and 48.45 mL of sterile water, for a total of 100 mL of fluid injected. the fascia was then closed with 2-0 strata fix suture. The subcutaneous tissue was closed with 3-0 Vicryl. The subcuticular tissue was closed with 3-0 strata fix suture. The skin was then closed with Dermabond glue and a sterile silver dressing. The patient was then transferred to the recovery room in stable condition. The medication assistant TANIYA Rousseau was required due to the complexity of surgery, and the need for skilled rn neurosurgical for positioning, draping, exposure, retraction, and closure of the wound.
[2018-05-24] MEDS ORDERED: LACTATED RINGERS 1,000 ML IV ONE (08:39)
[2018-05-24] MEDS ORDERED: MELOXICAM 7.5 MG TAB PO SCH (09:00)
--- NOTE | 2018-05-24 09:19 | FL ---
Fluoroscopy HISTORY: Anterior hip replacement 56 seconds fluoroscopy time supplied to the referring clinician. 2 intraoperative C-arm images docum ent the procedure. See dictated report from orthopedic surgery.
--- NOTE | 2018-05-24 09:20 | XR ---
Right hip HISTORY: Status post right hip arthroplasty Single frontal view of the hip Patient is status post right hip arthroplasty. Lucency in the soft tissues is compatible with postop state. There is anatomic alignment. IMPRESSION: Orthopedic follow-up.
--- NOTE | 2018-05-24 09:21 | XR ---
Right hip HISTORY: Hip replacement 2 intraoperative C-arm images document the procedure.
[2018-05-24] MEDS: HYDROmorphone 1 MG/ML 1 ML SYRINGE IVP ONE ×3 (12:11→17:07)
[2018-05-24] MEDS ORDERED: ceFAZolin IN SWFI 2 GM/20 ML SYRINGE IVP SCH (16:00)
[2018-05-24] MEDS ORDERED: ONDANSETRON 4 MG/2 ML VIAL IVP ONE (18:15)
[2018-05-24] MEDS ORDERED: ceFAZolin 1,000 MG/50 ML BAG (PMX) IVPB ONE (18:40)
[2018-05-24] MEDS ORDERED: SODIUM CHLORIDE 0.9% 1,000 ML IV ONE (18:54)
[2018-05-24] MEDS: SODIUM CHLORIDE 0.9% 1,000 ML IV SCH ×2 (20:07→23:04)
[2018-05-24] MEDS: ceFAZolin 2 GM in SODIUM CHLORIDE 0.9% 100 ML IVPB SCH (20:08)
[2018-05-24] MEDS: SENNOSIDES-DOCUSATE SODIUM 1 EACH TAB PO SCH (20:41)
[2018-05-25] MEDS: ceFAZolin 2 GM in SODIUM CHLORIDE 0.9% 100 ML IVPB SCH (01:42)
[2018-05-25] MEDS: LACTATED RINGERS 1,000 ML IV SCH ×2 (06:50→16:12)
[2018-05-25] MEDS: traMADol 50 MG TAB PO PRN ×3 (08:24→20:09)
[2018-05-25] MEDS: APIXABAN 5 MG TAB PO SCH ×2 (08:24→20:09)
[2018-05-25] MEDS: ATENOLOL 50 MG TAB PO SCH ×2 (08:24→20:09)
[2018-05-25 09:19] LABS: Basophils # (A) 0.1 k/uL (0-0.2); Basophils % (A) 0 %; Eosinophils # (A) 0.1 k/uL (0-0.7); Eosinophils % (A) 1 %; HCT 35.4 % (34.0-46.0); HGB 11.1 gm/dL (11.4-16.0); Hypochromasia Slight; Lymphocytes # (A) 1.7 k/uL (1.0-4.8); Lymphocytes % (A) 14 %; MCH 27.4 pg (25.0-35.0); MCHC 31.3 g/dL (31.0-37.0); MCV 87.6 fL (80.0-100.0); Mean Platelet Volume 7.2; Monocytes # (A) 0.7 k/uL (0-1.0); Monocytes % (A) 6 %; Neutrophils # (A) 9.3 k/uL (1.3-7.7); Neutrophils % (A) 78 %; Platelet Count 235 k/uL (150-450); RBC 4.04 m/uL (3.80-5.40); WBC 11.9 k/uL (3.8-10.6)
--- NOTE | 2018-05-25 09:31 | P.PN ---
Subjective Progress Note Date: 05/25/18 This is a 72-year-old female is status post right total hip arthroplasty. This is postoperative day #1. Patient is seen and evaluated at bedside with Dr. Darrel Dean. Patient states that her pain is under control. Patient states that she has been up and walking to the bathroom and back. Patient denies any fever/chills, numbness, weakness, tingling, abdominal pain, shortness of breath or chest pain. Objective - Vital Signs Vital signs: Vital Signs Temp 99.1 F 05/25/18 08:14 Pulse 111 H 05/25/18 08:14 Resp 16 05/25/18 08:14 BP 136/76 05/25/18 08:14 Pulse Ox 94 L 05/25/18 08:14 Intake & Output 05/24/18 05/25/18 05/25/18 18:59 06:59 18:59 Intake Total 2000 Output Total 100 Balance 1901 Weight 64.864 kg Intake: IV 2000 Output: Estimated Blood Loss 100 Other: Voiding Method Toilet Toilet # Voids 1 - Exam Vital signs are stable. Patient is in no acute distress and is alert and oriented 3. Calf is soft and nontender to palpation. Dressing is clean, dry, and intact. Patient has full foot and ankle motion without pain or difficulty. Neurovascular status and circulatory status are intact. Assessment and Plan Assessment: Atrial fibrillation Coronary artery disease History of pulmonary embolism (1) Status post total hip replacement, right Current Visit: Yes Status: Acute Code(s): Z96.641 - PRESENCE OF RIGHT ARTIFICIAL HIP JOINT SNOMED Code(s): 635627293941 (2) Primary osteoarthritis of right hip Current Visit: Yes Status: Acute Code(s): M16.11 - UNILATERAL PRIMARY OSTEOARTHRITIS, RIGHT HIP SNOMED Code(s): 787710850 Plan: Continue routine postop care. Continue antocoagulation. Weightbearing as tolerated with a walker Leave dressing in place for 10 days. Anticipate discharge home tomorrow.
[2018-05-25] MEDS: SODIUM CHLORIDE 0.9% 1,000 ML IV SCH (16:12)
[2018-05-25 19:55] VITALS: RESP 16
[2018-05-25] MEDS: SENNOSIDES-DOCUSATE SODIUM 1 EACH TAB PO SCH (20:09)
[2018-05-25] MEDS ORDERED: APIXABAN 5 MG TAB PO SCH (21:00)
--- NOTE | 2018-05-26 08:32 | P.DS ---
Providers Date of admission: 05/24/18 05:35 Expected date of discharge: 05/26/18 Attending physician: Darrel Dean Consults: 05/24/18 06:52 Consult Physician Routine Consulting Provider: Latrell Gaytan Reason/Comments: medical management Do you want consulting provider notified?: Yes Primary care physician: Latrell Gaytan - Discharge Diagnosis(es) (1) Status post total hip replacement, right Current Visit: Yes Status: Acute (2) Primary osteoarthritis of right hip Current Visit: Yes Status: Acute Hospital Course: This is a 72-year-old female with known history of degenerative arthritis of the right hip. The patient presents for evaluation. After discussion and consideration patient elects to proceed with total hip arthroplasty. The patient is seen preoperatively by Dr. Dean and medically cleared for surgery by their primary care physician. Patient is admitted to [facility] on 05/24/2018 for total hip arthroplasty. The procedures performed without complication or sequelae. The patient is doing well postoperatively. Labs and vital signs are stable on day of discharge. On day of discharge patient's hip incision is healing well. There is minimal erythema. There is no drainage noted at this time. There is minimal soft tissue swelling to the hip and thigh. Patient has full foot and ankle motion without difficulty or pain. Neurovascular status to the right lower extremity is intact. Patient is discharged home in good condition. Please see med rec for accurate list of home medications. Plan - Discharge Summary Discharge Rx Participant: No New Discharge Prescriptions: New Apixaban [Eliquis] 5 mg PO BID #60 tab Sennosides [Senokot] 1 tab PO BID #60 tablet traMADol HCl [Ultram] 1 - 2 tab PO Q6H PRN #56 tab PRN Reason: Pain No Action Apixaban [Eliquis] 5 mg PO BID tab Aspirin 81 mg PO DAILY chew Atenolol [Tenormin] 50 mg PO BID Discharge Medication List Apixaban [Eliquis] 5 mg PO BID tab 02/13/18 [Rx] Aspirin 81 mg PO DAILY chew 02/13/18 [Rx] Atenolol [Tenormin] 50 mg PO BID 05/20/18 [History] Apixaban [Eliquis] 5 mg PO BID #60 tab 05/26/18 [Rx] Sennosides [Senokot] 1 tab PO BID #60 tablet 05/26/18 [Rx] traMADol HCl [Ultram] 1 - 2 tab PO Q6H PRN #56 tab 05/26/18 [Rx] Follow up Appointment(s)/Referral(s): Latrell Gaytan MD [Primary Care Provider] - 06/03/18 2:00 pm ( ) [facility], [NON-STAFF] - As Needed Darrel Dean DO [Doctor of Osteopathic Medicine] - 06/04/18 10:30 am Activity/Diet/Wound Care/Special Instructions: Weightbearing as tolerated with walker. Leave dressing intact. Dressing may be removed by home care nurse in 10 days. May shower with dressing on. Please follow-up with [facility] in 2 weeks and call with any questions or concerns, . Discharge Disposition: HOME WITH HOME HEALTH SERVICES
[2018-05-26] MEDS: ATENOLOL 50 MG TAB PO SCH (09:33)
[2018-05-26] MEDS: APIXABAN 5 MG TAB PO SCH (09:33)
[2018-05-26 11:32] VITALS: BP 125/65; PULSE 96; TEMP 97.5
[2018-05-26] MEDS: SODIUM CHLORIDE 0.9% 1,000 ML IV SCH (12:22)
[2018-05-26] MEDS: LACTATED RINGERS 1,000 ML IV SCH (12:23)
== END 2018-05-26 12:49 | disposition home health service (06) | DRG 470 ==
LOC: 2ORMAIN 05:35 → 4SSUR 18:47
PROVIDERS: ADMIT Orthopaedic Surgery; ATTEND Orthopaedic Surgery
PROC: 30233N0 Transfusion of Autologous Red Blood Cells into Peripheral Vein, Percutaneous Approach (ICD-10-PCS; 2018-05-24)
PROC: 0SR906A Replacement of Right Hip Joint with Oxidized Zirconium on Polyethylene Synthetic Substitute, Uncemented, Open Approach (ICD-10-PCS; principal; 2018-05-24 07:00)
DX: M16.11 Unilateral primary osteoarthritis, right hip (principal); I27.20 Pulmonary hypertension, unspecified; I48.2 Chronic atrial fibrillation; I25.10 Atherosclerotic heart disease of native coronary artery without angina pectoris; E78.5 Hyperlipidemia, unspecified; K21.9 Gastro-esophageal reflux disease without esophagitis; F17.210 Nicotine dependence, cigarettes, uncomplicated; Z79.01 Long term (current) use of anticoagulants; Z79.82 Long term (current) use of aspirin; Z79.899 Other long term (current) drug therapy; Z86.711 Personal history of pulmonary embolism; Z95.1 Presence of aortocoronary bypass graft; Z98.51 Tubal ligation status
CPT/HCPCS: 73501; 85025; 86850; 86891; 86900; 86901; 88300

== ENCOUNTER → 2021-10-21 | Outpatient (CLI) | payer MEDICARE ==
--- NOTE | 2021-10-21 12:52 | CT ---
EXAMINATION TYPE: CT thoracic spine wo con DATE OF EXAM: 10/21/2021 COMPARISON: CT dated 02/10/2018 HISTORY: back pain, no injury CT DLP: 1060 mGycm Automated exposure control for dose reduction was used. TECHNIQUE: CT scan of the thoracic spine without IV contrast administration. FINDINGS: Osteopenia. Fused C4, C5 and C6 vertebrae. Mild anterolisthesis of C7 over T1. Slightly exaggerated d orsal kyphosis. No significant thoracic vertebral anterolisthesis or retrolisthesis. No definite vert ebral body collapse or acute displaced fracture. Degenerative changes of thoracic spine with multilevel opposing endplate osteophytosis. Mild left C5- 6 bony neuroforaminal stenosis, otherwise no significant bony central spinal canal stenosis or neurof oraminal stenosis seen in the thoracic spine. Slightly degenerated midthoracic intervertebral discs. No significant thoracic disc herniation or pro trusion. Scattered arterial atherosclerotic calcifications. Scattered subcentimeter mediastinal lymph nodes, nonspecific. No paraspinal lesion. Sternotomy wire sutures. IMPRESSION: Degenerative changes of the thoracic spine as described above. No definite thoracic vertebral body co llapse or acute displaced fracture. Incidental findings as described above.
== END | disposition home or self-care (01) ==
LOC: RADCTMAIN 11:38
PROVIDERS: ATTEND Family Medicine
DX: M47.814 Spondylosis without myelopathy or radiculopathy, thoracic region (principal)
CPT/HCPCS: 72128

== ENCOUNTER → 2021-11-14 | Outpatient (CLI) | payer MEDICARE ==
--- NOTE | 2021-11-14 12:42 | BD ---
EXAMINATION TYPE: Axial Bone Density DATE OF EXAM: 11/14/2021 COMPARISON: NONE CLINICAL HISTORY: 76 year old Female. ICD-10 CODE: Z78.0 ASYMPTOMATIC MENOPAUSAL STATE Height: 63 Weight: 141.1 FRAX RISK QUESTIONS: Alcohol (3 or more units per day): no Family History (Parent hip fracture): no Glucocorticoids (More than 3mos): no (Ex: prednisone, prednisolone, methylprednisolone, dexamethasone, and hydrocortisone). History of Fracture in Adulthood: no Secondary Osteoporosis: 1. Type 1 Diabetes: no 2. Hyperthyroidism: no 3. Menopause before 45: no 4. Malnutrition: no 5. Chronic liver disease: no Rheumatoid Arthritis: no Current Tobacco Use: no RISK FACTORS HISTORY OF: History of Wrist Fracture: right When: as a child Surgery to Spine/Hip(right/left)/Wrist (right/left): right hip replaced When: 2019 Family History of Osteoporosis: no Active: no Diet low in dairy products/other sources of calcium: yes Postmenopausal woman: yes Lost more than 2 inches in height since high school: yes MEDICATIONS: diabetic meds Additional History: EXAM MEASUREMENTS: Bone mineral densitometry was performed using the [employer]. Bone mineral density as measured about the Lumbar spine is: ----- L1-L4(G/cm2): 1.269 T Score Values are as follows: ----- L1: 0.7 ----- L2: 0.4 ----- L3: 1.1 ----- L4: 0.6 ----- L1-L4: 0.7 Bone mineral density : baseline Bone mineral density about the L hip (g/cm2): 0.771 T Score values are as follows: -----L Neck: -1.9 -----L Total: -1.3 Bone mineral density : baseline FRAX%s: The graph provided illustrates a 13.8% chance for a major osteoporotic fx and a 3.6% chance f or the hips probability for fx in 10 years time. IMPRESSION: Osteopenia (T Score between -2.5 and -1). There is slightly increased risk of fracture and the patient may be considered for treatment. Re-Screen 2-5 years. NOTE: T-SCORE=SD OF THE YOUNG ADULT MEAN.
== END | disposition home or self-care (01) ==
LOC: RADBDWWP 11:29
PROVIDERS: ATTEND Family Medicine
DX: M85.89 Other specified disorders of bone density and structure, multiple sites (principal); Z78.0 Asymptomatic menopausal state
CPT/HCPCS: 77080

== ENCOUNTER 2022-04-04 21:48 | Observation (INO) | payer MEDICARE ==
--- NOTE | 2022-04-04 22:35 | ED ---
General Adult HPI - General Chief complaint: Altered Mental Status Stated complaint: numbing/blurred vision/altered mental Time Seen by Provider: 04/04/22 22:08 Source: family Mode of arrival: wheelchair Limitations: no limitations - History of Present Illness Initial comments: Patient is a 76-year-old female with past medical history remarkable for cor onary bypass surgery, atrial fibrillation, diabetes, chronic back pain on Eliquis who presents emergency Department complaining of altered mental status earlier this evening. Approximately 6:20 PM, family members who are present at bedside state that the patient began acting differently. She became more confused. Had some right hand numbness. They describe possible aphasia as well that she was not recognizing individuals' faces. Had garbled speech. By 6:40 PM, symptoms resolved. She is back to her baseline currently. EMS was called and the patient was evaluated. Workup was normal and they decided against transfer to another hospital. Patient's family members. Drove her to [facility] for further evaluation. Denies any chest pain, shortness of breath. Denies any abdominal pain, nausea, vomiting. Patient states that at that time, she had sudden onset of right hand numbness, some blurred vision and she states she did feel confused. She is back to baseline at this time. Denies any other acute complaints including denying chest pain, shortness breath, abdominal pain, nausea, vomiting. His no symptoms at this time. No history of strokes or TIAs. - Related Data Home Medications Medication Instructions Recorded Confirmed atenoloL [Tenormin] 50 mg PO BID 05/20/18 05/24/18 Previous Rx's Medication Instructions Recorded Apixaban [Eliquis] 5 mg PO BID tab 02/13/18 Aspirin 81 mg PO DAILY chew 02/13/18 Apixaban [Eliquis] 5 mg PO BID #60 tab 05/26/18 Sennosides [Senokot] 1 tab PO BID #60 tablet 05/26/18 traMADol HCl [Ultram] 1 - 2 tab PO Q6H PRN #56 tab 05/26/18 Allergies Allergy/AdvReac Type Severity Reaction Status Date / Time acetaminophen [From Tylenol] AdvReac Unknown Verified 04/04/22 21:59 Sulfa (Sulfonamide AdvReac Confusion Verified 04/04/22 21:59 Antibiotics) Review of Systems ROS Statement: Those systems with pertinent positive or pertinent negative responses have been documented in the HPI. Review of Systems: CONST: Denies fever EYES: Denies blurry vision ENT: Denies nasal congestion C/V: Denies Chest pain RESP: Denies shortness of breath GI: Denies abdominal pain : Denies dysuria SKIN: Denies rash. MSK: Denies joint pain. NEURO: Denies headache ROS Other: All systems not noted in ROS Statement are negative. Past Medical History Past Medical History: Coronary Artery Disease (CAD), Osteoarthritis (OA) Additional Past Medical History / Comment(s): "fatty liver", beginnings of cataracts","occ heart burn takes tums", urinary incont. previous hx mentioned mi but pt not aware of this. History of Any Multi-Drug Resistant Organisms: None Reported Past Surgical History: Back Surgery, Coronary Bypass/CABG, Heart C atheterization, Tonsillectomy, Tubal Ligation Additional Past Surgical History / Comment(s): 2011 quad cabg,cervical fusion, lt knee arthroscopic sx Past Anesthesia/Blood Transfusion Reactions: Family History of Problems w/ Anesthesia Additional Past Anesthesia/Blood Transfusion Reaction / Comment(s): mom had hard time waking up after aa. pt has clausterphobia Past Psychological History: No Psychological Hx Reported Smoking Status: Former smoker Past Alcohol Use History: Rare Past Drug Use History: None Reported - Past Family History Father Family Medical History: Myocardial Infarction ([place]) Additional Family Medical History / Comment(s): from mi at age 52 Mother Additional Family Medical History / Comment(s): rheumatic fever. lived till age 85 General Exam - General Exam Comments Initial Comments: General: Appears in no acute distress. HEAD: Normal with no signs of head trauma. EYES: PERRLA, EOMI, conjunctiva normal, no discharge. Pupils are 3 mm and equal bilaterally. ENT: Hearing grossly intact, normal oropharynx. RESPIRATORY: Clear breath sounds bilaterally. No wheezes, rales, or rhonchi. C/V: Regular rate and rhythm. S1 and S2 auscultated, peripheral pulses 2+ and intact throughout ABD: Abd is soft, nontender, nondistended EXT: Normal range of motion, no obvious deformity SKIN: No rashes or lesions observed on exposed skin. NEURO: Alert and oriented x 4. Cranial nerves II-XII intact. No focal sensory or strength deficits. GCS of 15. NIH of 0. Limitations: no limitations Course Vital Signs 04/04/22 04/05/22 04/05/22 21:54 00:44 02:26 Temperature 97 F L 98.6 F 97.9 F Pulse Rate 67 74 Pulse Rate [ 90 Pulse Oximetery ] Respiratory 18 14 17 Rate Blood Pressure 194/82 176/75 Blood Pressure 186/92 [Right Arm] O2 Sat by Pulse 98 98 97 Oximetry Medical Decision Making - Medical Decision Making Based on the patient's presentation and physical exam, I'm concerned for transient altered mental status for the patient. Patient may have had a TIA earlier but symptoms have completely resolved. NIH is 0 at this time. Cannot rule out other etiology such as UTI at this time. Patient also has a history of blood thinner use and would like to rule out any intracranial injury despite no known trauma. She was in agreement this plan. Vital signs within except limits. We will obtain CT imaging of the brain, as well as basic laboratory studies and cardiac labs. She'll be monitored. Patient was in agreement. EKG showed no signs of acute ischemia. Patient's chest x-ray as interpreted by myself reveals no evidence of acute cardiopulmonary process. No infiltrate, no acute bony trauma process, no pneumothorax. Patient's brain CT as interpreted by myself reveals no acute intracranial process, including no hemorrhage, no midline shift, no mass effect. CT angiogram is interpreted by myself in the head and neck revealed no acute blockage, no acute intracranial process, no dissection. Patient's laboratory studies are remarkable for a urinary tract infection. Patient has a slight the elevated leukocytosis of 11.5. Remainder of the labs are unremarkable. I updated the patient as well as family members. We will begin treatment for her UTI. I did offer her admission as it is somewhat atypical for altered mental status from a UTI to be such sudden in onset and with symptoms resolving so quickly. There is still concern for TIA at this time. She has remained asymptomatic from a throughout her stay. NIH is remained 0 throughout her stay here. She agreed with admission for neurology evaluation as they're uncertain how quickly they can follow-up with her PCP. Therefore we will admit the patient, we will resume home meds. She did receive an aspirin. Neurology is consulted. We will continue treatment on her UTI. I spoke with the patient's PCP Dr. Gaytan who accepted the admission. Patient was admitted in stable condition. She remains hemodynamically stable at this time. - Lab Data Result diagrams: 04/04/22 23:08 04/04/22 23:08 Lab Results 04/04/22 04/04/22 04/04/22 Range/Units 23:08 23:08 23:08 WBC 11.5 H (3.8-10.6) k/uL RBC 5.05 (3.80-5.40) m/uL Hgb 14.0 (11.4-16.0) gm/dL Hct 42.2 (34.0-46.0) % MCV 83.6 (80.0-100.0) fL MCH 27.6 (25.0-35.0) pg MCHC 33.0 (31.0-37.0) g/dL RDW 13.6 (11.5-15.5) % Plt Count 313 (150-450) k/uL MPV 7.6 Neutrophils % 61 % Lymphocytes % 28 % Monocytes % 7 % Eosinophils % 1 % Basophils % 1 % Neutrophils # 7.0 (1.3-7.7) k/uL Lymphocytes # 3.2 (1.0-4.8) k/uL Monocytes # 0.8 (0-1.0) k/uL Eosinophils # 0.1 (0-0.7) k/uL Basophils # 0.1 (0-0.2) k/uL PT 11.3 (9.0-12.0) sec INR 1.0 (<1.2) APTT 28.8 (22.0-30.0) sec Sodium 137 (137-145) mmol/L Potassium 4.1 (3.5-5.1) mmol/L Chloride 103 (98-107) mmol/L Carbon Dioxide 25 (22-30) mmol/L Anion Gap 9 mmol/L BUN 28 H (7-17) mg/dL Creatinine 0.97 (0.52-1.04) mg/dL Est GFR (CKD-EPI)AfAm 66 (>60 ml/min/1.73 sqM) Est GFR (CKD-EPI)NonAf 57 (>60 ml/min/1.73 sqM) Glucose 95 (74-99) mg/dL Calcium 9.9 (8.4-10.2) mg/dL Total Bilirubin 0.5 (0.2-1.3) mg/dL AST 29 (14-36) U/L ALT 23 (4-34) U/L Alkaline Phosphatase 74 (38-126) U/L Ammonia (<30) umol/L Troponin I (0.000-0.034) ng/mL Total Protein 7.3 (6.3-8.2) g/dL Albumin 4.7 (3.5-5.0) g/dL Urine Color Urine Appearance (Clear) Urine pH (5.0-8.0) Ur Specific [place] (1.001-1.035) Urine Protein (Negative) Urine Glucose (UA) (Negative) Urine Ketones (Negative) Urine Blood (Negative) Urine Nitrite (Negative) Urine Bilirubin (Negative) Urine Urobilinogen (<2.0) mg/dL Ur Leukocyte Esterase (Negative) Urine RBC (0-5) /hpf Urine WBC (0-5) /hpf Ur Squamous Epith Cells (0-4) /hpf Urine Bacteria (None) /hpf Urine Mucus (None) /hpf Urine Opiates Screen (NotDetected) Ur Oxycodone Screen (NotDetected) Urine Methadone Screen (NotDetected) Ur Propoxyphene Screen (NotDetected) Ur Barbiturates Screen (NotDetected) U Tricyclic Antidepress (NotDetected) Ur Phencyclidine Scrn (NotDetected) Ur Amphetamines Screen (NotDetected) U Methamphetamines Scrn (NotDetected) U Benzodiazepines Scrn (NotDetected) Urine Cocaine Screen (NotDetected) U Marijuana (THC) Screen (NotDetected) 04/04/22 04/04/22 04/05/22 Range/Units 23:08 23:08 00:26 WBC (3.8-10.6) k/uL RBC (3.80-5.40) m/uL Hgb (11.4-16.0) gm/dL Hct (34.0-46.0) % MCV (80.0-100.0) fL MCH (25.0-35.0) pg MCHC (31.0-37.0) g/dL RDW (11.5-15.5) % Plt Count (150-450) k/uL MPV Neutrophils % % Lymphocytes % % Monocytes % % Eosinophils % % Basophils % % Neutrophils # (1.3-7.7) k/uL Lymphocytes # (1.0-4.8) k/uL Monocytes # (0-1.0) k/uL Eosinophils # (0-0.7) k/uL Basophils # (0-0.2) k/uL PT (9.0-12.0) sec INR (<1.2) APTT (22.0-30.0) sec Sodium (137-145) mmol/L Potassium (3.5-5.1) mmol/L Chloride (98-107) mmol/L Carbon Dioxide (22-30) mmol/L Anion Gap mmol/L BUN (7-17) mg/dL Creatinine (0.52-1.04) mg/dL Est GFR (CKD-EPI)AfAm (>60 ml/min/1.73 sqM) Est GFR (CKD-EPI)NonAf (>60 ml/min/1.73 sqM) Glucose (74-99) mg/dL Calcium (8.4-10.2) mg/dL Total Bilirubin (0.2-1.3) mg/dL AST (14-36) U/L ALT (4-34) U/L Alkaline Phosphatase (38-126) U/L Ammonia <9 (<30) umol/L Troponin I <0.012 (0.000-0.034) ng/mL Total Protein (6.3-8.2) g/dL Albumin (3.5-5.0) g/dL Urine Color Light Yellow Urine Appearance Clear (Clear) Urine pH 6.0 (5.0-8.0) Ur Specific [place] 1.027 (1.001-1.035) Urine Protein Trace H (Negative) Urine Glucose (UA) Negative (Negative) Urine Ketones Negative (Negative) Urine Blood Negative (Negative) Urine Nitrite Positive H (Negative) Urine Bilirubin Negative (Negative) Urine Urobilinogen <2.0 (<2.0) mg/dL Ur Leukocyte Esterase Moderate H (Negative) Urine RBC 1 (0-5) /hpf Urine WBC 18 H (0-5) /hpf Ur Squamous Epith Cells <1 (0-4) /hpf Urine Bacteria Few H (None) /hpf Urine Mucus Rare H (None) /hpf Urine Opiates Screen Not Detected (NotDetected) Ur Oxycodone Screen Not Detected (NotDetected) Urine Methadone Screen Not Detected (NotDetected) Ur Propoxyphene Screen Not Detected (NotDetected) Ur Barbiturates Screen Not Detected (NotDetected) U Tricyclic Antidepress Not Detected (NotDetected) Ur Phencyclidine Scrn Not Detected (NotDetected) Ur Amphetamines Screen Not Detected (NotDetected) U Methamphetamines Scrn Not Detected (NotDetected) U Benzodiazepines Scrn Not Detected (NotDetected) Urine Cocaine Screen Not Detected (NotDetected) U Marijuana (THC) Screen Not Detected (NotDetected) - EKG Data -: EKG Interpreted by Me EKG Comments: 12-lead Electrocardiogram Interpretation Note EKG was reviewed and interpreted by myself. 12-lead ECG performed at 2241 is interpreted by me as revealing atrial fibrillation at a rate of 68 beats per minute. [place] is normal. QRS duration is 70 ms, QTc is 388 ms.. There were no ST or T wave abnormalities to suggest myocardial ischemia or injury. R wave progression across the precordium was satisfactory. By my interpretation this EKG is non-diagnostic for acute ischemia. When compared with prior EKGs, no significant change. History of atrial fibrillation. Disposition Clinical Impression: UTI (urinary tract infection) Narrative: concern for TIA Disposition: ADMITTED IP TO THIS HOSP Condition: Stable Time of Disposition: 01:15
--- NOTE | 2022-04-04 23:05 | XR ---
EXAMINATION TYPE: XR chest 2V DATE OF EXAM: 04/04/2022 COMPARISON: 02/12/2018 HISTORY: Altered mental status TECHNIQUE: FINDINGS: Heart is normal. Lungs are clear of infiltrate. No heart failure. There are sternal wires. Costophrenic angles are clear. The bony thorax is intact. IMPRESSION: No active cardiopulmonary disease. No change.
[2022-04-04 23:16] LABS: Basophils # (A) 0.1 k/uL (0-0.2); Basophils % (A) 1 %; Eosinophils # (A) 0.1 k/uL (0-0.7); Eosinophils % (A) 1 %; HCT 42.2 % (34.0-46.0); Lymphocytes # (A) 3.2 k/uL (1.0-4.8); Lymphocytes % (A) 28 %; MCH 27.6 pg (25.0-35.0); MCV 83.6 fL (80.0-100.0); Mean Platelet Volume 7.6; Monocytes # (A) 0.8 k/uL (0-1.0); Monocytes % (A) 7 %; Neutrophils % (A) 61 %; Platelet Count 313 k/uL (150-450); RBC 5.05 m/uL (3.80-5.40); RDW 13.6 % (11.5-15.5); WBC 11.5 k/uL (3.8-10.6)
[2022-04-04 23:32] LABS: Partial Thromboplastin Time 28.8 sec (22.0-30.0); Prothrombin Time 11.3 sec (9.0-12.0)
[2022-04-04 23:34] LABS: Albumin 4.7 g/dL (3.5-5.0); Calcium 9.9 mg/dL (8.4-10.2); Potassium 4.1 mmol/L (3.5-5.1); Total Bilirubin 0.5 mg/dL (0.2-1.3); Total Protein 7.3 g/dL (6.3-8.2)
[2022-04-05 00:37] LABS: Appearance,Urine Clear (Clear); Bacteria,Urine Few /hpf; Bilirubin,Urine Negative (Negative); Blood,Urine Negative (Negative); Color,Urine Light Yellow; Glucose,Urine (UA) Negative (Negative); Ketones,Urine Negative (Negative); Leukocyte Esterase,Urine Moderate (Negative); Mucus,Urine Rare /hpf; Nitrite,Urine Positive (Negative); Protein,Urine Trace (Negative); RBC,Urine 1 /hpf (0-5); Specific Gravity,Urine 1.027 (1.001-1.035); Squamous Epithelial Cell,Urine <1 /hpf (0-4); Urobilinogen,Urine <2.0 mg/dL (<2.0); WBC,Urine 18 /hpf (0-5)
--- NOTE | 2022-04-05 00:37 | CT ---
EXAMINATION TYPE: CT brain wo con DATE OF EXAM: 04/05/2022 COMPARISON: None HISTORY: R/O TIA CT DLP: 1475 mGycm Automated exposure control for dose reduction was used. Images of the brain obtained with no contrast. There is some cerebral cortical atrophy. There is no mass effect or midline shift. No sign of intracr anial hemorrhage. There is patchy hypodensity in the periventricular white matter. The calvarium is i ntact. There is normal aeration of the mastoid sinuses. IMPRESSION: Cerebral atrophy. Chronic small vessel ischemia. No acute intracranial abnormality.
[2022-04-05 00:48] LABS: Amphetamine Screen,Urine Not Detected (NotDetected); Barbiturate Screen,Urine Not Detected (NotDetected); Benzodiazepines Screen,Urine Not Detected (NotDetected); Cocaine Screen,Urine Not Detected (NotDetected); Methadone Screen, Urine Not Detected (NotDetected); Opiate Screen,Urine Not Detected (NotDetected); Oxycodone Screen, Urine Not Detected (NotDetected); Phencyclidine Screen,Urine Not Detected (NotDetected); Tricyclic Antidepressant,Urine Not Detected (NotDetected); Urn Cannabinoid Scrn Not Detected (NotDetected)
--- NOTE | 2022-04-05 00:55 | CT ---
EXAMINATION TYPE: CT angio head neck DATE OF EXAM: 04/05/2022 COMPARISON: Chest CT scan 02/10/2018 HISTORY: R/O TIA CT DLP: 1475 mGycm Automated exposure control for dose reduction was used. CONTRAST: Performed with IV Contrast, patient injected with 65 mL of Isovue 370. Images obtained from the aortic arch to the vertex of the brain with IV contrast. There are 3-D post processed images. There is multiple enlarged mediastinal and paratracheal lymph nodes measuring up to 2 cm. Thoracic ao rta is intact. No aneurysm or dissection. The ascending aorta measures 3.4 cm. There is normal branch ing pattern of the great vessels of the aortic arch. There is arterial flow in both subclavian arteri es. There is arterial flow in the common internal and external carotid arteries bilaterally. There is fairly wide patency of the carotid artery bifurcations. There is minimal calcification at the left c arotid artery bifurcation. There is arterial flow in both vertebral arteries. No evidence of carotid or vertebral artery aneurysm or dissection. No evidence of filling defect in the pulmonary arteries. There is arterial flow in the anterior middle and posterior cerebral arteries bilaterally. No mass ef fect. No evidence of intracranial aneurysm or neovascularity. No evidence of intracranial arterial st enosis. There is filling of the posterior cerebral arteries mostly through the posterior communicatin g arteries. There is normal enhancement of the venous sinuses. IMPRESSION: Negative CT angiogram of the neck. Negative CT angiogram of the brain. Mediastinal adenopathy. Mild bronchial adenopathy. Adenopathy not significantly different than old ch est CT scan of 02/10/2018. There is clearing of the bilateral pleural effusions compared to old CT sca n.
[2022-04-05] MEDS ORDERED: ASPIRIN 325 MG TAB PO STA (01:53)
[2022-04-05 06:46] LABS: Glucose,Whole Blood 101 mg/dL (70-110)
[2022-04-05] MEDS ORDERED: atenoloL 50 MG TAB PO SCH (09:00)
[2022-04-05] MEDS ORDERED: CLOPIDOGREL 75 MG TAB PO SCH (09:00)
[2022-04-05] MEDS ORDERED: APIXABAN 5 MG TAB PO SCH (09:00)
--- NOTE | 2022-04-05 09:52 | P.CNNES ---
History of Present Illness Consult date: 04/05/22 Requesting physician: Turner Mcarthur Reason for Consult: Possible TIA History of Present Illness: This is a 76-year-old woman with history of atrial fibrillation on Eliquis, coronary artery disease status post the CABG, diabetes mellitus who presented emergency department on 04/04/2022 for altered mental status. Some of the history was obtained from medical record. Per the ED team is seen to the patient was confused yesterday evening and approximately at 6:20 PM yesterday they felt the patient was acting differently and was more confused. It seems that the patient had right hand numbness and the family describes some mild possible speech difficulty and having difficulty identifying individual faces and her speech was garbled and by 6:40 PM her symptoms has resolved and was back to baseline. According to patient she remembers the event yesterday and she stated that the she remembers having difficulty getting her words out and she felt the words were garbled and she felt like she had numbness of the right hand in that the left hand. She denies any history of seizures. Denies any history of stroke or TIAs in the past. She feels she is back to her baseline currently. Patient is on Eliquis 5mg 1/2 tab bid (so taking 2.5mg 1 tab bid). She denies taking aspirin and this was asked multiple times and she was adamant that she does not take any aspirin or Plavix. Some of the workup during his hospital visit consisted of Initial blood pressure is 194/82. Patient is afebrile Initial white blood cells 11.5 thousand otherwise rest of CBC with differential is unremarkable BUN is 28 which is minimally elevated but not impressive otherwise rest of Chem- 7 panel is unremarkable. Urinalysis appears that the patient has underlying urinary tract infection Urine drug screen is nondetected CT of the head is reported as cerebral atrophy. Chronic small vessel ischemia. No acute intracranial abnormality. I personally reviewed the CT of the head and I feel the patient has old lacunar stroke over the bilateral basilar ganglia but there is no acute or subacute ischemia or any interval, hemorrhage that I was able to appreciate. CT angiography of the head and neck was reported as negative CT and drug feel of the neck. Negative seated drug. The brain. Mediastinal adenopathy. Mild bronchial adenopathy. And opacity not cyclically different then the old chest computed tomography scan on 02/10/2018. There is clearing of the bilateral pleural effusion compared to old computed tomography scan. The ED team felt there is a concern for TIA at this time and the patient NIH stroke scale was a 0 on the presentation and continue to be as 0. No IV TPA as since the patient symptoms resolved and the risk outweighed the benefit. EKG is reported as age are fibrillation. Review of Systems Review of system: The 12 point system was reviewed and apparent positive and negative per HPI. Past Medical History Past Medical History: Coronary Artery Disease (CAD), Osteoarthritis (OA) Additional Past Medical History / Comment(s): "fatty liver", beginnings of cataracts","occ heart burn takes tums", urinary incont. previous hx mentioned mi but pt not aware of this. History of Any Multi-Drug Resistant Organisms: None Reported Past Surgical History: Back Surgery, Coronary Bypass/CABG, Heart Catheterization, Tonsillectomy, Tubal Ligation Additional Past Surgical History / Comment(s): 2011 quad cabg,cervical fusion, lt knee arthroscopic sx Past Anesthesia/Blood Transfusion Reactions: Family History of Problems w/ Anesthesia Additional Past Anesthesia/Blood Transfusion Reaction / Comment(s): mom had hard time waking up after aa. pt has clausterphobia Past Psychological History: No Psychological Hx Reported Smoking Status: Former smoker Past Alcohol Use History: Rare Past Drug Use History: None Reported - Past Family History Father Family Medical History: Myocardial Infarction ([place]) Additional Family Medical History / Comment(s): from mi at age 52 Mother Additional Family Medical History / Comment(s): rheumatic fever. lived till age 85 Medications and Allergies Home Medications Medication Instructions Recorded Confirmed Type Apixaban [Eliquis] 5 mg PO BID tab 02/13/18 05/24/18 Rx Aspirin 81 mg PO DAILY chew 02/13/18 05/24/18 Rx atenoloL [Tenormin] 50 mg PO BID 05/20/18 05/24/18 History Apixaban [Eliquis] 5 mg PO BID #60 tab 05/26/18 Rx Sennosides [Senokot] 1 tab PO BID #60 tablet 05/26/18 Rx traMADol HCl [Ultram] 1 - 2 tab PO Q6H PRN #56 tab 05/26/18 Rx Allergies Allergy/AdvReac Type Severity Reaction Status Date / Time acetaminophen [From Tylenol] AdvReac Unknown Verified 04/04/22 21:59 Sulfa (Sulfonamide AdvReac Confusion Verified 04/04/22 21:59 Antibiotics) Physical Examination - Vital Signs Vital Signs: Vital Signs Temp Pulse Pulse Resp BP BP BP 04/05/22 07:00 97.6 F 74 18 171/81 198/68 04/05/22 03:20 16 04/05/22 02:26 97.9 F 90 17 186/92 04/05/22 00:44 98.6 F 74 14 176/75 04/04/22 21:54 97 F L 67 18 194/82 Pulse Ox 04/05/22 07:00 99 04/05/22 03:20 04/05/22 02:26 97 04/05/22 00:44 98 04/04/22 21:54 98 Intake and Output 04/04/22 04/05/22 04/05/22 22:59 06:59 14:59 Intake Total 50 Balance 50 Intake: Intake, IV Titration 50 Amount cefTRIAXone 1 gm In 50 Sodium Chloride 0.9% 50 ml @ 100 mls/hr IVPB Q24H [facility] Rx#:[id number] Other: Voiding Method Toilet Weight 79.379 kg 79.379 kg GENERAL: The patient is lying in bed and is not in acute distress. CHEST: The heart rate is regular rate rhythm. No murmurs to auscultation. No carotid bruit bilaterally. LUNG: Clear to auscultation bilaterally no wheezing noted throughout. Not labored breathing. ABDOMEN/GI: Bowel sounds present in all 4 quadrants. No tenderness to palpation throughout. NEUROLOGICAL: Higher mental function: The patient is awake, alert, oriented to self, place and time. Patient is following commands. No aphasia and no neglect. Cranial nerves: The pupils are round, equal and reactive to light and accommodation. Visual zabala are full to confrontation throughout. Extraocular movement is intact no nystagmus is noted. Facial sensation is normal to touch throughout. The facial strength is normal throughout. Hearing is normal bilaterally to hand rub. Tongue is midline and moved [id number] without any difficulty. No dysarthria is noted. Shoulder shrug is normal bilaterally. Motor: The strength is 5 over 5 throughout. Normal tone and bulk. Cerebellum: Normal finger to nose heel to saul bilaterally. Sensation: Sensation is normal to touch throughout. Reflexes (right/left): 2+ throughout. Plantars are downgoing bilaterally. Results - Laboratory Findings CBC and BMP: 04/04/22 23:08 04/04/22 23:08 Abnormal Lab Findings: Abnormal Labs 04/04/22 04/04/22 04/05/22 23:08 23:08 00:26 WBC 11.5 H BUN 28 H Urine Protein Trace H Urine Nitrite Positive H Ur Leukocyte Esterase Moderate H Urine WBC 18 H Urine Bacteria Few H Urine Mucus Rare H Assessment and Plan Assessment: Acute episode of some garbled speech/aphasia and some right hand/left hand numbness with possible confusion: Is probable TIA. Cannot rule out soley due to underlying UTI (presenting with confusion and masking stroke-like symptoms) Possible underlying urinary tract infection On CT of the head I felt the patient has old lacunar infarct in the bilateral basal ganglia Atrial fibrillation on Eliquis Diabetes mellitus Coronary artery disease status post CABG Plan: Patient was restarted on her home dose of Eliquis 2.5mg 1 tab bid. If Ahl rashawn's is increased in 25 mg 1 tablet twice a day then no antiplatelets is needed and we'll defer that decision to the primary team if not then we'll start patient on aspirin 81 mg daily for secondary stroke prophylaxis. Started Lipitor 40mg qhs for secondary stroke prophylaxis. We'll not pursue MRI the brain since we'll not international exchange coordinator but if the patient continues to have episode of confusion or any new neurological deficit then recommend MRI as an inpatient if not can the obtain MRI as an outpatient. I ordered a routine EEG because of her transient episode of confusion and will not be completed until this Thursday. If continues to be stable can be obtained as outpatient. Lipid panel is ordered. I ordered TSH, vitamin B-12, folate, 2-D echo PT, OT and [employer] are consulted Continue neuro checks On cardiac monitoring We'll defer urinary tract infection that is likely to the primary team. We'll defer the rest of the medical management to primary team For DVT prophylaxis the patient is on Eliquis. Upon discharge recommend patient to follow-up with a neurologist as an outpatient within 1-2 weeks. Thank you for the consultation. Time with Patient: Greater than 30
[2022-04-05 11:40] LABS: Glucose,Whole Blood 182 mg/dL (70-110)
--- NOTE | 2022-04-05 11:49 | CONS ---
CONSULTATION CHIEF COMPLAINT: TIA. HISTORY OF PRESENT ILLNESS: Barb is a 76-year-old lady with history of coronary artery disease status post prior CABG, persistent atrial fibrillation on Eliquis, diabetes, who presented to the emergency room with altered mental status. She was at her daughter or granddaughter's for Thanksgiving dinner and felt kind of confused and out of place and was not quite sure what was going on. Her speech was mumbled and had right hand numbness. She was brought to the ER and then subsequently her symptoms have just resolved. She had a CT scan of the head and neck. The patient has an old lacunar infarct. Does not have any significant carotid stenosis and is otherwise unremarkable. An EKG shows atrial fibrillation with controlled ventricular rate and cardiac enzymes have been negative. The patient's clinical presentation is consistent with a TIA. I agree with decreasing the dose of Eliquis to 2.5 b.i.d. and give aspirin. Continue the Tenormin and Lipitor that she was on at home. The patient will have an echocardiogram done today and if that looks normal, she can be discharged home and I will do an outpatient Holter and if necessary do a stress test on her if she is willing to go through it. She is to see me years ago but has not seen me in the recent past. PAST MEDICAL HISTORY: Significant for persistent atrial fibrillation, TIA, CAD status post CABG, and dyslipidemia. MEDICATIONS: 1. Atenolol 50 b.i.d. 2. Eliquis 5 b.i.d. 3. Tramadol. 4. Senokot. 5. Aspirin. 6. Eliquis. ALLERGIES: To sulfa and Tylenol. FAMILY HISTORY: Negative for premature coronary artery disease. SOCIAL HISTORY: Negative for current smoking issues or drug abuse. REVIEW OF SYSTEMS: HEENT: Unremarkable. CARDIAC: As described above. RESPIRATORY: Negative. GI: Negative. GENITOURINARY: Negative. ALLERGY/IMMUNOLOGY: Negative. SKIN: Negative. MUSCULOSKELETAL: Negative. ENDOCRINE: Negative. DERM: Negative. CONSTITUTIONAL: Negative. ONCOLOGICAL: Negative. TRUCK HOPPER: As described above. Rest of the system review is not relevant. PHYSICAL EXAMINATION: GENERAL: The patient is comfortable at rest, afebrile. VITAL SIGNS: Heart rate is 70 beats per minute, blood pressure is 170/80, respiratory rate is 18, O2 saturation is 99% on room air. NECK: There is no jugular venous distention. Carotid upstroke is normal. There is no bruit. CHEST: Exam reveals good air entry bilaterally. HEART: Exam reveals first and second heart sounds. No gallop. Has a systolic murmur at the left lower sternal border. ABDOMEN: Soft. EXTREMITIES: Did not reveal any edema. Peripheral pulses are felt. LABORATORIES: Show a hemoglobin of 14, platelet count is 313, potassium is 4.1, creatinine is 0.9. Urine drug screen is negative. ASSESSMENT: 1. Transient ischemic attack. 2. Persistent atrial fibrillation with controlled ventricular rate. The patient is adequately anticoagulated. 3. Coronary artery disease, status post coronary artery bypass graft. PLAN: I will obtain a 2D echo on her today and continue her workup as outpatient. If she is able to go home today, I do not have any issues in sending her home. If she is here, I will be seeing her tomorrow. MMODL / MARIA CN: [id number] /
[2022-04-05] MEDS ORDERED: DEXTROSE 50% SYRINGE 50 ML IVP PRN ×4 (12:52→13:32)
--- NOTE | 2022-04-05 14:01 | CA ---
Transthoracic Echo Report Name: Barb Mc Age: 76 Gender: F : 1945 Exam Date: 04/05/2022 11:53 Exam Location: [facility] Ht (in): 64 Wt (lb): 175 Ordering Physician: Brett Ag MD ([id number]) Attending/Referring Phys: Ancelmo GARDUNO Therapist Asst Lydia Elizabeth RDCS Procedure CPT: Indications: a-fib Cardiac Hx: Technical Quality: Fair Contrast 1: Total Dose (mL): Contrast 2: Total Dose (mL): MEASUREMENTS (Male / Female) Normal Values 2D ECHO LV Diastolic Diameter PLAX 3.9 cm 4.2 - 5.9 / 3.9 - 5.3 cm LV Systolic Diameter PLAX 2.4 cm IVS Diastolic Thickness 1.0 cm 0.6 - 1.0 / 0.6 - 0.9 cm LVPW Diastolic Thickness 1.0 cm 0.6 - 1.0 / 0.6 - 0.9 cm LV Relative Wall Thickness 0.5 RV Internal Dim ED PLAX 3.1 cm LVOT Diameter 1.8 cm LA Volume 65.0 cm??? 18 - 58 / 22 - 52 cm??? M-MODE Aortic Root Diameter MM 2.7 cm LA Systolic Diameter MM 3.7 cm LA Ao Ratio MM 1.4 AV Cusp Separation MM 1.5 cm DOPPLER AV Peak Velocity 135.4 cm/s AV Peak Gradient 7.3 mmHg AV Mean Velocity 96.2 cm/s AV Mean Gradient 4.1 mmHg AV Velocity Time Integral 33.0 cm LVOT Peak Velocity 106.2 cm/s LVOT Peak Gradient 4.5 mmHg LVOT Velocity Time Integral 22.9 cm LVOT Stroke Volume 58.0 cm??? LVOT Stroke Volume Index 31.4 ml/m??? LVOT Cardiac Index 1480.3 cm???/min???m??? AV Area Cont Eq vti 1.8 cm??? AV Area Cont Eq pk 2.0 cm??? MV Area PHT 3.9 cm??? Mitral E Point Velocity 127.9 cm/s Mitral A Point Velocity 0.2 cm/s Mitral E to A Ratio 749.4 MV Deceleration Time 197.0 ms MV E' Velocity 5.2 cm/s Mitral E to MV E' Ratio 24.4 TR Peak Velocity 222.1 cm/s TR Peak Gradient 19.7 mmHg Right Ventricular Systolic Press 23.6 mmHg FINDINGS Left Ventricle Mildly increased left ventricular wall thickness. Normal left ventricular systolic function with no obvious regional wall motion abnormalities. Left ventricular ejection fraction is estimated at 50-55 %. Abnormal (paradoxical) septal motion consistent with postoperative state. Right Ventricle Normal right ventricular size and function. Right ventricular systolic pressure within normal limits. Right Atrium Normal right atrial size. Left Atrium Moderately increased left atrial volume. Mitral Valve Mitral valve thickened. Mild mitral annular calcification. Mild to moderate mitral regurgitation. Aortic Valve Trileaflet aortic valve. No aortic valve stenosis or regurgitation. Thickened aortic valve without stenosis. Tricuspid Valve Structurally normal tricuspid valve. Mild tricuspid regurgitation. Pulmonic Valve Trace pulmonic regurgitation. Pericardium No pericardial effusion. Aorta Normal size aortic root and proximal ascending aorta. CONCLUSIONS Normal LV systolic function Mild to moderate mitral regurgitation Aortic sclerosis without any stenosis Previewed by: Dr. Brett Ag MD (Electronically Signed) Final Date: 05 April 2022 14:00
[2022-04-05] MEDS: INSULIN ASPART (NovoLOG) 100 UNIT/ML VIAL SQ SCH ×3 (14:13→20:47)
[2022-04-05 16:41] LABS: Glucose,Whole Blood 92 mg/dL (70-110)
[2022-04-05] MEDS ORDERED: INSULIN ASPART (NovoLOG) 100 UNIT/ML VIAL SQ SCH (17:30)
[2022-04-05] MEDS: APIXABAN 2.5 MG TABLET PO SCH (20:35)
[2022-04-05] MEDS: atenoloL 25 MG TAB PO SCH (20:35)
[2022-04-05 20:48] LABS: Glucose,Whole Blood 114 mg/dL (70-110)
[2022-04-05] MEDS ORDERED: ATORVASTATIN 40 MG TAB PO SCH (21:00)
[2022-04-05 22:07] VITALS: TEMP 97.5
--- NOTE | 2022-04-06 03:07 | HP ---
HISTORY AND PHYSICAL HISTORY OF PRESENT ILLNESS: A 76-year-old white female, who came into the hospital with TIA-type symptomatology, weakness, lightheadedness, dizziness, and more speech confusion. She had angiography, CT in the ER, which showed no issues of any narrowing of head and neck arteries. She had some altered mental status which improved since she has been here and it was over 3 hours in the ER. She is at baseline currently. She takes Eliquis 2.5 b.i.d. at home. No aspirin or Plavix. Blood pressure is 190 to 160 systolic over 70 to 80. White count 11.5, BUN is 28. Urinalysis, possible UTI. CT of the head showed cerebral atrophy. No strokes. She has an old lacunar stroke over the bilateral basal ganglia, no acute. CAT scan of the chest shows mediastinal adenopathy, not different, clearing of the bilateral pleural effusions from before. PAST MEDICAL HISTORY: Coronary artery disease, AFib, osteoarthritis, cataracts, fatty liver. PAST SURGICAL HISTORY: Back surgery, CABG, heart catheterization, tonsillectomy, tubal ligation. SOCIAL HISTORY: No smoking. No alcohol or drugs. ALLERGIES: Acetaminophen, sulfa. PHYSICAL EXAMINATION: VITAL SIGNS: Temperature 97, pulse 70s to 90s, blood pressure 170s to 190s over 70s, pulse 74 to 90. LUNGS: Clear. CARDIOVASCULAR: S1 and S2. HEMATOLOGY: Negative for Homans. GI: Soft, nontender. NEUROLOGIC: Alert and orient x3. OPHTHALMOLOGICAL: Pupils equal, round, reactive. LABORATORY STUDIES: Urine shows moderate leukocyte esterase, 18 white cells. ASSESSMENT: Acute speech, aphasia, right hand and left hand numbness, possible confusion. I suspect this is a transient ischemic attack. Unclear of the etiology possibly due to underlying urinary tract infection, which I do not think so has cleared up immediately. History of old infarcts, atrial fibrillation on Eliquis, diabetes mellitus, coronary artery disease, she continues on Eliquis. Neurology will add baby aspirin to go with Eliquis twice a day, she has been taking it once a day; Lipitor 40 q.h.s. MRI will be done if she gets worse. EEG cannot be completed. Possible discharge home tomorrow. Continue antibiotics for urinary tract infection. MMODL / IJN: [id number] /
[2022-04-06] MEDS: INSULIN ASPART (NovoLOG) 100 UNIT/ML VIAL SQ SCH ×2 (06:16→11:50)
[2022-04-06 06:17] LABS: Glucose,Whole Blood 108 mg/dL (70-110)
[2022-04-06] MEDS: atenoloL 25 MG TAB PO SCH (07:50)
[2022-04-06] MEDS: APIXABAN 2.5 MG TABLET PO SCH (07:50)
[2022-04-06 08:12] VITALS: BP 190/80; PULSE 67; RESP 16
[2022-04-06] MEDS ORDERED: ASPIRIN 81 MG PO SCH (09:00)
[2022-04-06 10:17] LABS: Chol/HDL Ratio 3.45 Ratio; LDL Cholesterol,Calculated 77.3 mg/dL (0.0-131.0)
--- NOTE | 2022-04-06 11:14 | P.PN ---
Subjective Progress Note Date: 04/06/22 The patient is seen at bedside and continues to be doing well. Denies of any further neurological deficits. Objective - Vital Signs Vital signs: Vital Signs Temp 97.5 F L 04/06/22 07:00 Pulse 67 04/06/22 07:00 Resp 16 04/06/22 07:00 BP 190/80 04/06/22 07:00 Pulse Ox 99 04/06/22 07:00 FiO2 Intake & Output 04/05/22 04/06/22 04/06/22 18:59 06:59 18:59 Intake Total 480 300 240 Balance 480 300 240 Intake: Intake, IV Titration 50 Amount cefTRIAXone 1 gm In 50 Sodium Chloride 0.9% 50 ml @ 100 mls/hr IVPB Q24H [facility] Rx#:[id number] Oral 480 250 240 Other: Voiding Method Toilet # Voids 3 - Exam GENERAL: The patient is lying in bed and is not in acute distress. NEUROLOGICAL: Higher mental function: The patient is awake, alert, oriented to self, place and time. Patient is following commands. No aphasia and no neglect. Cranial nerves: The pupils are round, equal and reactive to light and accommodation. Visual azbala are full to confrontation throughout. Extraocular movement is intact no nystagmus is noted. Facial sensation is normal to touch throughout. The facial strength is normal throughout. Hearing is normal bilaterally to hand rub. Tongue is midline and moved [id number] without any difficulty. No dysarthria is noted. Shoulder shrug is normal bilaterally. Motor: The strength is 5 over 5 throughout. Normal tone and bulk. Cerebellum: Normal finger to nose heel to saul bilaterally. Sensation: Sensation is normal to touch throughout. Reflexes (right/left): 2+ throughout. Plantars are downgoing bilaterally. Some of the workup during his hospital visit consisted of Lipid panel is triglyceride 125, cholesterol 144, LDL 77 and HDL is 41. Vitamin B12 is 267 and the normal supposed to be between 200-944 Folate is 4.70 normal supposed to be between 4.4-31 TSH is 2.710 Hemoglobin A1c 6.6 Urinalysis appears that the patient has underlying urinary tract infection Urine drug screen is nondetected CT of the head is reported as cerebral atrophy. Chronic small vessel ischemia. No acute intracranial abnormality. I personally reviewed the CT of the head and I feel the patient has old lacunar stroke over the bilateral basilar ganglia but there is no acute or subacute ischemia or any interval, hemorrhage that I was able to appreciate. CT angiography of the head and neck was reported as negative CT and drug feel of the neck. Negative seated drug. The brain. Mediastinal adenopathy. Mild bronchial adenopathy. And opacity not cyclically different then the old chest computed tomography scan on 02/10/2018. There is clearing of the bilateral pleural effusion compared to old computed tomography scan. 2D Echo: Was reported as normal left ventricle systolic function. Mild to moderate mitral regurgitation. Aortic sclerosis without any stenosis at. Left atrium is mildly increased left atrial volume. - Labs CBC & Chem 7: 04/04/22 23:08 04/04/22 23:08 Labs: Abnormal Lab Results - Last 24 Hours (Table) 04/05/22 04/05/22 04/05/22 Range/Units 10:14 11:39 20:47 POC Glucose (mg/dL) 182 H 114 H (70-110) mg/dL Hemoglobin A1c 6.6 H (0.0-6.0) % Microbiology - Last 24 Hours (Table) 04/05/22 00:26 Urine Culture - Preliminary Urine,Voided Assessment and Plan Assessment: Acute episode of some garbled speech/aphasia and some right hand/left hand numbness with possible confusion: Is probable TIA. Cannot rule out soley due to underlying UTI (presenting with confusion and masking stroke-like symptoms) Possible underlying urinary tract infection On CT of the head I felt the patient has old lacunar infarct in the bilateral basal ganglia Very low normal vitamin B12 Very low normal folate close to deficient Atrial fibrillation on Eliquis Diabetes mellitus and her recent hemoglobin is 6.6 Coronary artery disease status post CABG Plan: Patient was restarted on her home dose of Eliquis 2.5mg 1 tab bid. In addition added ASA 81mg 1 tab daily for secondary stroke prophylaxis. Continue Lipitor 40mg qhs for secondary stroke prophylaxis. We'll not pursue MRI the brain since we'll not management and budget analyst but if the patient continues to have episode of confusion or any new neurological deficit then recommend MRI as an inpatient if not can the obtain MRI as an outpatient. I ordered a routine EEG because of her transient episode of confusion and will not be completed until this Thursday. If continues to be stable can be obtained as outpatient. Because of Very low normal vitamin B12 and Very low normal folate close to deficient: I started the patient on Vitamin B12 1000mcg daily with one time IM dose and folic acid 1mg daily. PT, OT and TIN CAN LABORER are consulted Continue neuro checks On cardiac monitoring We'll defer urinary tract infection that is likely to the primary team. We'll defer the rest of the medical management to primary team For DVT prophylaxis the patient is on Eliquis. Upon discharge recommend patient to follow-up with a neurologist as an outpatient within 1-2 weeks. Otherwise no additional neurological work-up. Time with Patient: Less than 30
[2022-04-06] MEDS ORDERED: CYANOCOBALAMIN 1,000 MCG/ML 1 ML VIAL IM ONE (11:15)
[2022-04-06] MEDS ORDERED: FOLIC ACID 1 MG TAB PO SCH (11:30)
[2022-04-06 11:47] LABS: Glucose,Whole Blood 101 mg/dL (70-110)
--- NOTE | 2022-04-06 13:17 | PN ---
PROGRESS NOTE SUBJECTIVE: This is a 76-year-old lady with history of persistent atrial fibrillation, CAD status post CABG, who is admitted to hospital with an episode of confusion and mental status change. The patient had an episode of TIA and her symptoms have resolved by the time she presented to hospital. On an echocardiogram I performed, she has normal LV systolic function. OBJECTIVE: GENERAL: Today, comfortable at rest. VITAL SIGNS: Stable. Blood pressure is elevated at 190/82, respiratory rate is 18. NECK: There is no jugular venous distention. Carotid upstroke is diminished. There is no bruit. CHEST: Reveals good air entry bilaterally. HEART: Reveals first and second heart sounds, an ejection systolic murmur in the aortic area. ABDOMEN: Soft. EXTREMITIES: Did not reveal any edema. Peripheral pulses are felt. ASSESSMENT: 1. Transient ischemic attack. 2. Coronary artery disease, status post coronary artery bypass graft. 3. Uncontrolled hypertension. PLAN: I will increase the dose of losartan. TIA could be related to the atrial fibrillation, but the patient is adequately anticoagulated with Eliquis. Eliquis dose has been decreased by Neurology. We will increase the dose to 5 mg in the outpatient setup. MMODL / IJN: [id number] /
[2022-04-06] MEDS ORDERED: NITROFURANTOIN MONOHYD/M-CRYST 100 MG CAP PO SCH (21:00)
[2022-04-07] MEDS ORDERED: LOSARTAN 25 MG TAB PO SCH (09:00)
[2022-04-07] MEDS ORDERED: CYANOCOBALAMIN 500 MCG TAB PO SCH (09:00)
== END 2022-04-06 14:45 | disposition home or self-care (01) ==
LOC: EC 21:48 → 6NMEDSUR 04-05 01:54
PROVIDERS: ADMIT Family Medicine; ATTEND Family Medicine
DX: G45.9 Transient cerebral ischemic attack, unspecified (principal); N39.0 Urinary tract infection, site not specified; I10 Essential (primary) hypertension; D72.829 Elevated white blood cell count, unspecified; M54.9 Dorsalgia, unspecified; G89.29 Other chronic pain; I25.10 Atherosclerotic heart disease of native coronary artery without angina pectoris; E11.36 Type 2 diabetes mellitus with diabetic cataract; K76.0 Fatty (change of) liver, not elsewhere classified; G31.9 Degenerative disease of nervous system, unspecified; R59.0 Localized enlarged lymph nodes; J90 Pleural effusion, not elsewhere classified; E78.5 Hyperlipidemia, unspecified; I08.1 Rheumatic disorders of both mitral and tricuspid valves; I37.1 Nonrheumatic pulmonary valve insufficiency; I48.19 Other persistent atrial fibrillation; Z95.1 Presence of aortocoronary bypass graft; Z79.01 Long term (current) use of anticoagulants; Z79.899 Other long term (current) drug therapy; Z79.82 Long term (current) use of aspirin; Z88.2 Allergy status to sulfonamides; Z98.51 Tubal ligation status; Z87.891 Personal history of nicotine dependence; Z82.49 Family history of ischemic heart disease and other diseases of the circulatory system; Z98.1 Arthrodesis status
CPT/HCPCS: 96365; 96366; 99285; 36415; 93005; 93306; 80061; 80053; 84443; 82607; 82140; 82746; 84484; 85025; 85610; 85730; 81001; 80306; 87086; 87077; 87186; 83036; 71046; 70496; 70450; 70498; G0378 ×2; J0696 ×2; Q9967

== ENCOUNTER → 2022-04-15 | Outpatient (CLI) | payer MEDICARE ==
--- NOTE | 2022-04-15 20:21 | EEG ---
ELECTROENCEPHALOGRAM REPORT PREAMBLE: This is a 76-year-old female, who was recently admitted and discharged from hospital for possible TIA. The patient presented to the ER with altered mental status. She also had some right-sided numbness and speech difficulty. The patient was noted to have UTI. No previous history of seizures. CURRENT MEDICATIONS: 1. Metformin. 2. Tenormin. 3. Cozaar. 4. Folic acid. 5. B12. 6. Lipitor. 7. Aspirin. 8. Eliquis. EEG FINDINGS: This is a 21-channel digital EEG recorded with video component, utilizing 10/20 international system with referential and bipolar montages. Background consists of well developed, well regulated moderate voltage activity in 10 hertz alpha. Background is posterior dominant and reactive to eye opening and closing. Intermittent left temporal dysrhythmic [id number] amplitude focal delta slowing was seen in the left temporal region, with left temporal sharp waves. Photic driving response was not seen. Drowsiness was seen with appearance of bilaterally symmetric theta frequency rhythm. Stage 2 sleep was seen briefly with presence of sleep spindles. Photic driving response was not clearly seen. No electrographic seizure was recorded. IMPRESSION: This is an abnormal EEG due to intermittent focal slowing and epileptiform activity over the left temporal region. This is suggestive of focal cortical neuronal dysfunction, with underlying cortical irritability and tendency for seizure. Clinical correlation is strongly recommended. MMODL / IJN: [id number] /
== END ==
LOC: NEUROMAIN 09:49
PROVIDERS: ATTEND Student in an Organized Health Care Education/Training Program
DX: R41.82 Altered mental status, unspecified (principal); Z88.2 Allergy status to sulfonamides; Z88.6 Allergy status to analgesic agent; Z87.891 Personal history of nicotine dependence
CPT/HCPCS: 95819

== ENCOUNTER → 2023-09-15 | Outpatient (CLI) | payer MEDICARE ==
[2023-09-15 14:56] LABS: Partial Thromboplastin Time 25.9 sec (22.0-30.0); Prothrombin Time 10.7 sec (10.0-12.5)
[2023-09-15 20:57] LABS: ALT 10 U/L (8-44); AST 17 U/L (13-35); Albumin 4.2 g/dL (3.8-4.9); Albumin/Globulin Ratio 1.91 Ratio (1.60-3.17); Alkaline Phosphatase 60 U/L (41-126); BUN/Creat Ratio 29.22 Ratio (12.00-20.00); Blood Urea Nitrogen 26.3 mg/dL (9.0-27.0); Calcium 9.4 mg/dL (8.7-10.3); Carbon Dioxide 22.7 mmol/L (21.6-31.8); Chloride 102 mmol/L (96-109); Globulin 2.2 g/dL (1.6-3.3); Glucose 110 mg/dL (70-110); Potassium 4.8 mmol/L (3.5-5.5); Sodium 138 mmol/L (135-145); Total Bilirubin 0.2 mg/dL (0.3-1.2); Total Protein 6.4 g/dL (6.2-8.2)
[2023-09-15 21:48] LABS: HCT 24.9 % (37.2-46.3); HGB 7.7 g/dL (12.0-15.0); MCH 25.9 pg (27.0-32.0); MCHC 30.9 g/dL (32.0-37.0); MCV 83.8 FL (80.0-97.0); Mean Platelet Volume 10.2 FL (9.5-12.2); NRBC Per 100 WBC 0 X 10*3/uL (0.00-0.01); Platelet Count 328 X 10*3/uL (140-440); RBC 2.97 X 10*6/uL (4.10-5.20); RDW 14.1 % (11.5-14.5); WBC 9.47 X 10*3/uL (4.50-10.00)
== END | disposition home or self-care (01) ==
LOC: LABWHC1 13:55
PROVIDERS: ATTEND Orthopaedic Surgery
DX: Z01.812 Encounter for preprocedural laboratory examination (principal); Z22.322 Carrier or suspected carrier of Methicillin resistant Staphylococcus aureus; M17.12 Unilateral primary osteoarthritis, left knee
CPT/HCPCS: 36415; 80053; 85027; 85610; 85730; 87070

== ENCOUNTER 2023-10-02 13:19 | Observation (INO) | payer MEDICARE ==
[2023-10-02] MEDS: PANTOPRAZOLE 40 MG/10 ML VIAL IVP STA (14:34)
[2023-10-02 14:44] LABS: Basophils # (A) 0.1 k/uL (0-0.2); Basophils % (A) 1 %; Eosinophils # (A) 0.1 k/uL (0-0.7); Eosinophils % (A) 2 %; HGB 7.1 gm/dL (11.4-16.0); Hypochromasia Marked; Lymphocytes % (A) 24 %; MCH 24.7 pg (25.0-35.0); MCHC 30.7 g/dL (31.0-37.0); MCV 80.5 fL (80.0-100.0); Mean Platelet Volume 7.5; Monocytes # (A) 0.5 k/uL (0-1.0); Monocytes % (A) 6 %; Neutrophils # (A) 5.4 k/uL (1.3-7.7); Neutrophils % (A) 66 %; Platelet Count 358 k/uL (150-450); Poikilocytosis Slight; RBC 2.86 m/uL (3.80-5.40); RDW 14.5 % (11.5-15.5); WBC 8.2 k/uL (3.8-10.6)
[2023-10-02 14:57] LABS: Partial Thromboplastin Time 26.1 sec (22.0-30.0)
[2023-10-02 15:01] LABS: ALT 11 U/L (4-34); AST 23 U/L (14-36); African American GFR (CKD) 81 (>60 ml/min/1.73 sqM); Albumin 3.9 g/dL (3.5-5.0); Alkaline Phosphatase 62 U/L (38-126); Anion Gap 9 mmol/L; Blood Urea Nitrogen 23 mg/dL (7-17); Calcium 9.2 mg/dL (8.4-10.2); Carbon Dioxide 21 mmol/L (22-30); Chloride 106 mmol/L (98-107); Glucose 99 mg/dL (74-99); Lipase 158 U/L (23-300); Non-African American GFR(CKD) 70 (>60 ml/min/1.73 sqM); Potassium 4.6 mmol/L (3.5-5.1); Sodium 136 mmol/L (137-145); Total Bilirubin 0.5 mg/dL (0.2-1.3); Total Protein 6.5 g/dL (6.3-8.2)
[2023-10-02] MEDS ORDERED: ONDANSETRON 4 MG/2 ML VIAL IVP PRN (15:51)
[2023-10-02] MEDS ORDERED: ACETAMINOPHEN TAB 325 MG TAB PO PRN (15:51)
[2023-10-02] MEDS ORDERED: NALOXONE 0.4 MG/ML 1 ML VIAL IV PRN (15:51)
--- NOTE | 2023-10-02 15:54 | ED ---
General Adult HPI - General Chief complaint: Recheck/Abnormal Lab/Rx Stated complaint: Abn labs-sent by PCP Time Seen by Provider: 10/02/23 14:05 Source: patient, RN notes reviewed, old records reviewed Mode of arrival: wheelchair Limitations: no limitations - History of Present Illness Initial comments: Patient is a 78-year-old female with past medical history remarkable for atrial fibrillation on Eliquis, CABG, hyperlipidemia presents emergency department for laboratory abnormalities. Was found to be anemic on outpatient Labs and was se nt here for further evaluation. Denies any gross bleeding in her stool, denies hematemesis. Denies melena or dark tarry stools. Has no other acute complaints. Denies weakness. Denies any difficulty in breathing or chest pain. Denies any abdominal pain or nausea or vomiting. No complaints. Presents for blood transfusion after Dr. Gaytan contacted her and sent her to the ER. She has been transitioning from Eliquis to Lovenox as she is due to receive knee surgery next week. - Related Data Home Medications Medication Instructions Recorded Confirmed Atorvastatin [Lipitor] 10 mg PO HS 04/05/22 10/02/23 atenoloL [Tenormin] 25 mg PO BID 04/05/22 10/02/23 Apixaban [Eliquis] 2.5 mg PO DIRECTED 09/30/23 10/02/23 Enoxaparin [Lovenox] 40 mg SQ DAILY 09/30/23 10/02/23 Fexofenadine HCl 180 mg PO DAILY 09/30/23 10/02/23 Montelukast [Singulair] 10 mg PO DAILY 09/30/23 10/02/23 Omeprazole 40 mg PO DAILY 09/30/23 10/02/23 HYDROcodone/APAP 5-325MG [[place] 0.25 tab PO DAILY PRN 10/02/23 10/02/23 5-325] Ipratropium-Albuterol Nebulize 3 ml INHALATION RT-TID 10/02/23 10/02/23 [Duoneb 0.5 mg-3 mg/3 ml Soln] Previous Rx's Medication Instructions Recorded Aspirin 81 mg PO DAILY 90 Days #90 tab 04/06/22 Folic Acid 1 mg PO DAILY 90 Days #90 tab 04/06/22 Allergies Allergy/AdvReac Type Severity Reaction Status Date / Time acetaminophen [From Tylenol] AdvReac per Verified 10/02/23 14:56 patient causes fatty liver to worsen Sulfa (Sulfonamide AdvReac Confusion Verified 10/02/23 14:56 Antibiotics) Review of Systems ROS Statement: Those systems with pertinent positive or pertinent negative responses have been documented in the HPI. Review of Systems: CONST: Denies fever EYES: Denies blurry vision ENT: Denies nasal congestion C/V: Denies Chest pain RESP: Denies shortness of breath GI: Denies abdominal pain : Denies dysuria SKIN: Denies rash. MSK: Denies joint pain. NEURO: Denies headache ROS Other: All systems not noted in ROS Statement are negative. Past Medical History Past Medical History: Atrial Fibrillation, Coronary Artery Disease (CAD), Eye Disorder, Hyperlipidemia, Liver Disease, Osteoarthritis (OA) Additional Past Medical History / Comment(s): "Fatty liver", beginnings of cataracts", occasional heartburn, urinary incontinence, occasional SOB, uses O2 at night only at 2L, back pain. History of Any Multi-Drug Resistant Organisms: None Reported Past Surgical History: Coronary Bypass/CABG, Heart Catheterization, Joint Replacement, Orthopedic Surgery, Tonsillectomy, Tubal Ligation Additional Past Surgical History / Comment(s): 2011 quadruple CABG, cervical fusion, left knee arthroscopy, total right hip replacement. Past Anesthesia/Blood Transfusion Reactions: Previous Problems w/ Anesthesia, Family History of Problems w/ Anesthesia Additional Past Anesthesia/Blood Transfusion Reaction / Comment(s): Patient and Mom had hard time waking up. Clausterphobia. Past Psychological History: No Psychological Hx Reported Smoking Status: Former smoker Past Alcohol Use History: None Reported Past Drug Use History: Marijuana - Past Family History Father Family Medical History: Myocardial Infarction ([place]) Additional Family Medical History / Comment(s): from [place] at age 52. Mother Additional Family Medical History / Comment(s): Rheumatic fever, lived to age 85. General Exam - General Exam Comments Initial Comments: General: Appears in no acute distress. HEAD: Normal with no signs of head trauma. EYES: PERRLA, EOMI, conjunctiva normal, no discharge. ENT: Hearing grossly intact, normal oropharynx. RESPIRATORY: Clear breath sounds bilaterally. No wheezes, rales, or rhonchi. C/V: Regular rate and rhythm. S1 and S2 auscultated, no edema, peripheral pulses 2+ and intact throughout ABD: Abd is soft, nontender, nondistended. Rectal exam unremarkable. No gross blood. Light brown stool. Good rectal tone. Occult blood sent. EXT: Normal range of motion, no obvious deformity SKIN: No rashes or lesions observed on exposed skin. NEURO: Alert and oriented x 4. Cranial nerves II-XII intact. No focal sensory or strength deficits. Limitations: no limitations Course Vital Signs 10/02/23 10/02/23 10/02/23 13:26 15:27 17:04 Temperature 97.9 F 98.3 F Pulse Rate 77 70 68 Respiratory 16 18 20 Rate Blood Pressure 161/84 169/67 160/58 O2 Sat by Pulse 99 100 Oximetry 10/02/23 10/02/23 17:15 17:35 Temperature 98.1 F 98.6 F Pulse Rate 72 64 Respiratory 18 18 Rate Blood Pressure 156/67 167/75 O2 Sat by Pulse 99 100 Oximetry Medical Decision Making - Medical Decision Making Was pt. sent in by a medical professional or institution (, PA, RISK CONTROL FIELD REPRESENTATIVE, urgent care, hospital, or correction...) When possible be specific @ -Sent by PCP Dr. Galicia for evaluation for anemia. Did you speak to anyone other than the patient for history (EMS, parent, family, police, friend...)? What history was obtained from this source @ -No Did you review nursing and triage notes (agree or disagree)? Why? @ -I reviewed and agree with nursing and triage notes Were old charts reviewed (outside hosp., previous admission, EMS record, old EKG, old radiological studies, urgent care reports/EKG's, correction records)? Report findings @ -Prior labs reviewed from September 14 which does show that patient was anemic with hemoglobin of 7.7 at that time. No recent hemoglobin prior to that. Differential Diagnosis (chest pain, altered mental status, abdominal pain women, abdominal pain men, vaginal bleeding, weakness, fever, dyspnea, syncope, headache, dizziness, GI bleed, back pain, seizure, CVA, palpatations, mental health, musculoskeletal)? @ -Anemia, GI bleed, CKD. This list is not all inclusive. EKG interpreted by me (3pts min.). @ -As above X-rays interpreted by me (1pt min.). @ -None done CT interpreted by me (1pt min.). @ -None done U/S interpreted by me (1pt. min.). @ -None done What testing was considered but not performed or refused? (CT, X-rays, U/S, labs)? Why? @ -Considered CT GI bleed protocol the patient has no pain and is asymptomatic. No gross blood on rectal exam. Discussed this with patient and she was in agreement with referral. What meds were considered but not given or refused? Why? @ -None Did you discuss the management of the patient with other professionals (professionals i.e. , PA, RISK CONTROL FIELD REPRESENTATIVE, lab, RT, psych nurse, vp digital marketing social media and crm, pattern generator operator, teacher, health officer, field case manager)? Give summary @ -Discussed with Dr. Gaytan who accepted the observation admission was in agreement plan for 1 unit packed red blood cells transfusion. Discussed with on-call surgeon Dr. Stein who accepted the consult, and was in agreement with holding the patient's blood thinning medication. Was smoking cessation discussed for >3mins.? @ -No Was critical care preformed (if so, how long)? @ -Yes, 31 minutes. Were there social determinants of health that impacted care today? How? (Homelessness, low income, unemployed, alcoholism, drug addiction, transportation, low edu. Level, literacy, decrease access to med. care, [facility], rehab)? @ -No Was there de-escalation of care discussed even if they declined (Discuss DNR or withdrawal of care, Hospice)? DNR status @ -No What co-morbidities impacted this encounter? (DM, HTN, Smoking, COPD, CAD, Cancer, CVA, ARF, Chemo, Hep., AIDS, mental health diagnosis, sleep apnea, morbid obesity)? @ -On blood thinning medication Was patient admitted / discharged? Hospital course, mention meds given and route, prescriptions, significant lab abnormalities, going to OR and other pertinent info. @ -Patient presents emergency department with concern for anemia. Is asymptomatic. However patient had hemoglobin of 6.9 outpatient. I do not have access to these labs. We will repeat labs. No gross blood on rectal exam. No obvious GI bleed. Occult blood returned positive. Patient is anemic to 7.1. Likely blood loss anemia. Remainder the workup unremarkable. I did discuss the findings with the patient. She was given Protonix and we will transfuse her 1 unit of packed red blood cells. I spoke with the admitting physician, Dr. Gaytan who accepted the admission observation for monitoring of the hemoglobin. I also spoke with the insulting surgeon Dr. Stein due to the GI bleed and concern for anemia. He accepted the consult. Was in agreement plan for holding all blood thinning medications at this time. Patient was in agreement this plan. She was admitted in stable condition. Discussed not obtaining CT with the surgeon Dr. Stein who was in agreement with this plan as she is otherwise asymptomatic. Undiagnosed new problem with uncertain prognosis? @ -No Drug Therapy requiring intensive monitoring for toxicity (Heparin, Nitro, Insulin, Cardizem)? @ -No Were any procedures done? @ -No Diagnosis/symptom? @ -Anemia likely secondary to GI bleed on blood thinners Acute, or Chronic, or Acute on Chronic? @ -Acute Uncomplicated (without systemic symptoms) or Complicated (systemic symptoms)? @ -Complicated Side effects of treatment? @ -No Exacerbation, Progression, or Severe Exacerbation? @ -No Poses a threat to life or bodily function? How? (Chest pain, [place], [place], pneumonia, PE, COPD, DKA, ARF, appy, cholecystitis, CVA, Diverticulitis, Homicidal, Suicidal, threat to staff... and all critical care pts) @ -Yes - Lab Data Result diagrams: 10/02/23 14:28 10/02/23 14:28 Lab Results 10/02/23 10/02/23 10/02/23 Range/Units 14:25 14:28 14:28 WBC 8.2 (3.8-10.6) k/uL RBC 2.86 L (3.80-5.40) m/uL Hgb 7.1 L (11.4-16.0) gm/dL Hct 23.0 L (34.0-46.0) % MCV 80.5 (80.0-100.0) fL MCH 24.7 L (25.0-35.0) pg MCHC 30.7 L (31.0-37.0) g/dL RDW 14.5 (11.5-15.5) % Plt Count 358 (150-450) k/uL MPV 7.5 Neutrophils % 66 % Lymphocytes % 24 % Monocytes % 6 % Eosinophils % 2 % Basophils % 1 % Neutrophils # 5.4 (1.3-7.7) k/uL Lymphocytes # 2.0 (1.0-4.8) k/uL Monocytes # 0.5 (0-1.0) k/uL Eosinophils # 0.1 (0-0.7) k/uL Basophils # 0.1 (0-0.2) k/uL Hypochromasia Marked Poikilocytosis Slight PT 11.0 (10.0-12.5) sec INR 1.0 (<1.2) APTT 26.1 (22.0-30.0) sec Sodium (137-145) mmol/L Potassium (3.5-5.1) mmol/L Chloride (98-107) mmol/L Carbon Dioxide (22-30) mmol/L Anion Gap mmol/L BUN (7-17) mg/dL Creatinine (0.52-1.04) mg/dL Est GFR (CKD-EPI)AfAm (>60 ml/min/1.73 sqM) Est GFR (CKD-EPI)NonAf (>60 ml/min/1.73 sqM) Glucose (74-99) mg/dL Plasma Lactic Acid Jasvir (0.7-2.0) mmol/L Calcium (8.4-10.2) mg/dL Total Bilirubin (0.2-1.3) mg/dL AST (14-36) U/L ALT (4-34) U/L Alkaline Phosphatase (38-126) U/L Total Protein (6.3-8.2) g/dL Albumin (3.5-5.0) g/dL Lipase (23-300) U/L Stool Occult Blood (Negative) Blood Type A Negative Blood Type Recheck A Neg Bld Type Recheck Status No Antibody Screen NEGATIVE Crossmatch See Detail Spec Expiration Date 10/05/2023 - 232410/02/23 10/02/23 10/02/23 Range/Units 14:28 14:28 14:59 WBC (3.8-10.6) k/uL RBC (3.80-5.40) m/uL Hgb (11.4-16.0) gm/dL Hct (34.0-46.0) % MCV (80.0-100.0) fL MCH (25.0-35.0) pg MCHC (31.0-37.0) g/dL RDW (11.5-15.5) % Plt Count (150-450) k/uL MPV Neutrophils % % Lymphocytes % % Monocytes % % Eosinophils % % Basophils % % Neutrophils # (1.3-7.7) k/uL Lymphocytes # (1.0-4.8) k/uL Monocytes # (0-1.0) k/uL Eosinophils # (0-0.7) k/uL Basophils # (0-0.2) k/uL Hypochromasia Poikilocytosis PT (10.0-12.5) sec INR (<1.2) APTT (22.0-30.0) sec Sodium 136 L (137-145) mmol/L Potassium 4.6 (3.5-5.1) mmol/L Chloride 106 (98-107) mmol/L Carbon Dioxide 21 L (22-30) mmol/L Anion Gap 9 mmol/L BUN 23 H (7-17) mg/dL Creatinine 0.81 (0.52-1.04) mg/dL Est GFR (CKD-EPI)AfAm 81 (>60 ml/min/1.73 sqM) Est GFR (CKD-EPI)NonAf 70 (>60 ml/min/1.73 sqM) Glucose 99 (74-99) mg/dL Plasma Lactic Acid Jasvir 1.2 (0.7-2.0) mmol/L Calcium 9.2 (8.4-10.2) mg/dL Total Bilirubin 0.5 (0.2-1.3) mg/dL AST 23 (14-36) U/L ALT 11 (4-34) U/L Alkaline Phosphatase 62 (38-126) U/L Total Protein 6.5 (6.3-8.2) g/dL Albumin 3.9 (3.5-5.0) g/dL Lipase 158 (23-300) U/L Stool Occult Blood Positive H (Negative) Blood Type Blood Type Recheck Bld Type Recheck Status Antibody Screen Crossmatch Spec Expiration Date - EKG Data -: EKG Interpreted by Me EKG Comments: 12-lead Electrocardiogram Interpretation Note EKG was reviewed and interpreted by myself. 12-lead ECG performed at 1509 is interpreted by me as revealing atrial fibrillation that is rate controlled at a rate of 72 beats per minute. [place] is normal. QRS durations 82 ms, QTc is 448 ms.. There were no ST or T wave abnormalities to suggest myocardial ischemia or injury. R wave progression across the precordium was satisfactory. By my interpretation this EKG is non-diagnostic for acute ischemia. Critical Care Time Critical Care Time: Yes Total Critical Care Time: 31 Disposition Clinical Impression: Anemia, Occult blood in stools Disposition: ADMITTED IP TO THIS HOSP Condition: Stable Time of Disposition: 15:53
[2023-10-02 17:27] LABS: Appearance,Urine Cloudy (Clear); Bacteria,Urine Few /hpf; Bilirubin,Urine Negative (Negative); Blood,Urine Negative (Negative); Color,Urine Colorless; Glucose,Urine (UA) Negative (Negative); Ketones,Urine Negative (Negative); Leukocyte Esterase,Urine Small (Negative); Mucus,Urine Occasional /hpf; Nitrite,Urine Negative (Negative); Protein,Urine Trace (Negative); RBC,Urine 1 /hpf (0-5); Specific Gravity,Urine 1.017 (1.001-1.035); Squamous Epithelial Cell,Urine <1 /hpf (0-4); Urobilinogen,Urine <2.0 mg/dL (<2.0); WBC,Urine 13 /hpf (0-5)
[2023-10-02] MEDS ORDERED: HYDROcodone/APAP 5-325MG 1 EACH TAB PO PRN (18:54)
[2023-10-02] MEDS: IPRATROPIUM-ALBUTEROL 3 ML NEB INHALATION SCH (20:00)
[2023-10-02] MEDS: ATORVASTATIN 10 MG TAB PO SCH (20:55)
[2023-10-02] MEDS: atenoloL 25 MG TAB PO SCH (20:55)
[2023-10-03] MEDS: PANTOPRAZOLE 40 MG TABLET PO SCH (06:52)
[2023-10-03] MEDS: MONTELUKAST 10 MG TAB PO SCH (08:46)
[2023-10-03] MEDS: LORATADINE 10 MG TAB PO SCH (08:46)
[2023-10-03] MEDS: PANTOPRAZOLE 40 MG/10 ML VIAL IV SCH (08:47)
[2023-10-03 09:44] LABS: Basophils # (A) 0.08 X 10*3/uL (0.00-0.10); Basophils % (A) 0.9 %; Eosinophils # (A) 0.15 X 10*3/uL (0.04-0.35); Eosinophils % (A) 1.6 %; HCT 25.8 % (37.2-46.3); HGB 8.1 g/dL (12.0-15.0); Lymphocytes % (A) 31.5 %; MCH 25.6 pg (27.0-32.0); MCHC 31.4 g/dL (32.0-37.0); MCV 81.4 FL (80.0-97.0); Mean Platelet Volume 9.8 FL (9.5-12.2); Monocytes # (A) 0.88 X 10*3/uL (0.20-1.00); Monocytes % (A) 9.6 %; NRBC Per 100 WBC 0 X 10*3/uL (0.00-0.01); Neutrophils # (A) 5.17 X 10*3/uL (1.80-7.70); Neutrophils % (A) 56.1 %; Platelet Count 300 X 10*3/uL (140-440); RBC 3.17 X 10*6/uL (4.10-5.20); RDW 14.9 % (11.5-14.5); WBC 9.21 X 10*3/uL (4.50-10.00)
[2023-10-03 09:57] LABS: ALT 9 U/L (8-44); AST 18 U/L (13-35); Albumin 3.8 g/dL (3.8-4.9); Albumin/Globulin Ratio 1.81 Ratio (1.60-3.17); Alkaline Phosphatase 55 U/L (41-126); Blood Urea Nitrogen 22.4 mg/dL (9.0-27.0); Calcium 9.3 mg/dL (8.7-10.3); Carbon Dioxide 23.5 mmol/L (21.6-31.8); Chloride 106 mmol/L (96-109); Globulin 2.1 g/dL (1.6-3.3); Glucose 103 mg/dL (70-110); Potassium 4.6 mmol/L (3.5-5.5); Sodium 139 mmol/L (135-145); Total Bilirubin 0.6 mg/dL (0.3-1.2); Total Protein 5.9 g/dL (6.2-8.2)
--- NOTE | 2023-10-03 12:05 | P.CON ---
Consult Note - . Consult date: 10/03/23 Assessment/Plan:: Patient is a 78-year-old female with past medical history remarkable for atrial fibrillation on Eliquis, CABG, hyperlipidemia presents emergency department for laboratory abnormalities. Was found to be anemic on outpatient Labs and was sent here for further evaluation. Denies any gross bleeding in her stool, denies hematemesis. Denies melena or dark tarry stools. Has no other acute complaints. Denies weakness. Denies any difficulty in breathing or chest pain. Denies any abdominal pain or nausea or vomiting. No complaints. She has never had a colonoscopy She has been transitioning from Eliquis to Lovenox as she is due to receive knee surgery next week. Review of Systems ROS Statement: Those systems with pertinent positive or pertinent negative responses have been documented in the HPI. Review of Systems: CONST: Denies fever EYES: Denies blurry vision ENT: Denies nasal congestion C/V: Denies Chest pain RESP: Denies shortness of breath GI: Denies abdominal pain : Denies dysuria SKIN: Denies rash. MSK: Denies joint pain. NEURO: Denies headache ROS Other: All systems not noted in ROS Statement are negative. Past Medical History Past Medical History: Atrial Fibrillation, Coronary Artery Disease (CAD), Eye Disorder, Hyperlipidemia, Liver Disease, Osteoarthritis (OA) Additional Past Medical History / Comment(s): "Fatty liver", beginnings of cataracts", occasional heartburn, urinary incontinence, occasional SOB, uses O2 at night only at 2L, back pain. History of Any Multi-Drug Resistant Organisms: None Reported Past Surgical History: Coronary Bypass/CABG, Heart Catheterization, Joint Replacement, Orthopedic Surgery, Tonsillectomy, Tubal Ligation Additional Past Surgical History / Comment(s): 2011 quadruple CABG, cervical fusion, left knee arthroscopy, total right hip replacement. Past Anesthesia/Blood Transfusion Reactions: Previous Problems w/ Anesthesia, Family History of Problems w/ Anesthesia Additional Past Anesthesia/Blood Transfusion Reaction / Comment(s): Patient and Mom had hard time waking up. Clausterphobia. Past Psychological History: No Psychological Hx Reported Smoking Status: Former smoker Past Alcohol Use History: None Reported Past Drug Use History: Marijuana - Past Family History Father Family Medical History: Myocardial Infarction ([place]) Additional Family Medical History / Comment(s): from [place] at age 52. Mother Additional Family Medical History / Comment(s): Rheumatic fever, lived to age 85. General Exam - General Exam Comments Initial Comments: General: Appears in no acute distress. HEAD: Normal with no signs of head trauma. EYES: PERRLA, EOMI, conjunctiva normal, no discharge. ENT: Hearing grossly intact, normal oropharynx. RESPIRATORY: Clear breath sounds bilaterally. No wheezes, rales, or rhonchi. C/V: Regular rate and rhythm. S1 and S2 auscultated, no edema, peripheral pulses 2+ and intact throughout ABD: Abd is soft, nontender, nondistended. Rectal exam unremarkable. No gross blood. Light brown stool. Good rectal tone. Occult blood sent. EXT: Normal range of motion, no obvious deformity SKIN: No rashes or lesions observed on exposed skin. NEURO: Alert and oriented x 4. Cranial nerves II-XII intact. No focal sensory or strength deficits. 78 year old female with anemia. No history of colonoscopy - Continue to trend H/H - Transfuse prn - Patient may require endoscopy if hgb continues to decrease
[2023-10-03] MEDS: FUROSEMIDE 20 MG TAB PO SCH (14:38)
--- NOTE | 2023-10-03 16:18 | CT ---
EXAMINATION TYPE: CT chest wo con CT DLP: 205.9 mGycm, Automated exposure control for dose reduction was used. DATE OF EXAM: 10/03/2023 3:34 PM COMPARISON: Chest radiograph from 04/04/2022 02/10/2018. CLINICAL INDICATION:Female, 78 years old with history of cough worsening/nondignostic chest xray; PHH , worsening cough. nondiagnostic cxr TECHNIQUE: Multiple axial images were obtained through the chest. Sagittal and coronal reformats were created for review. Contrast used: mL of (None if empty) Oral contrast used: (None if empty) FINDINGS: LUNGS/ PLEURA: Intralobular septal thickening. No focal consolidation, pneumothorax or pleural effusi on. AIRWAY: Patent and unremarkable. HEART: Heart is enlarged for size. Mild coronary artery atherosclerosis. Mild aortic valve leaflet pa lpitations. MEDIASTINUM: No gross evidence of adenopathy. VASCULATURE: No aortic aneurysm. MUSCULOSKELETAL: Mild disc degeneration changes are present throughout the thoracolumbar spine. Moeller otomy wires are present. SOFT TISSUES/LYMPH NODES: Unremarkable. LOWER NECK: No significant findings. UPPER ABDOMEN: No significant findings. IMPRESSION: Cardiomegaly with pulmonary vascular congestion correlate with serum BNP.
--- NOTE | 2023-10-03 17:03 | HP ---
HISTORY AND PHYSICAL she is on atrial fibrillation, on Eliquis. She has a history of atrial fibrillation, CABG, dyslipidemia. She came here with positive Hemoccult stool and hemoglobin is 6.8. She is given 1 unit of blood in the emergency room. She has had no colonoscopy or EGD ever. She Eliquis to Lovenox prior to knee surgery next week. REVIEW OF SYSTEMS: A 14-point review of system is pale, weakness, fatigue, lightheadedness. Otherwise, negative. Chronic shortness of breath, dyspnea. She wears oxygen at home and at night. PAST MEDICAL HISTORY: History of atrial fibrillation, coronary artery disease, asthma, COPD, liver disease, dyslipidemia, eye disorder, osteoarthritis, : Surgery, tonsillectomy, tubal ligation, CABG, cervical fusion, left knee arthroscopy, total hip replacement. FAMILY HISTORY: Father with myocardial infarction, in [place] lived 85. PHYSICAL EXAMINATION: VITAL SIGNS: Stable. Afebrile. Vital signs are reviewed. HEENT: Normocephalic and atraumatic. SKIN: She is extremely pale. PSYCH: Fair mood and affect. She appears happy. LUNGS: Clear. Minimal wheeze. No rales or rhonchi. CARDIOVASCULAR: Regular rate and rhythm. ABDOMEN: Soft. Occult blood was positive in the rectum. negative. SKIN: Pale. NEURO: Cranial nerves intact. We transfused 1 unit of blood. Hemoglobin is 8.1. . Otherwise, we will have to discharge her home without her blood thinners to follow up as an outpatient. Prognosis, guarded. MMODL / IJN: [id number] /
[2023-10-04] MEDS: FOLIC ACID 1 MG TAB PO SCH (07:59)
[2023-10-04] MEDS: POTASSIUM CHLORIDE ER 20 MEQ TAB.ER PO SCH (07:59)
[2023-10-04] MEDS: LORATADINE 10 MG TAB PO SCH (07:59)
[2023-10-04 09:29] LABS: Basophils # (A) 0.09 X 10*3/uL (0.00-0.10); Eosinophils # (A) 0.27 X 10*3/uL (0.04-0.35); HCT 26.6 % (37.2-46.3); HGB 8.1 g/dL (12.0-15.0); Lymphocytes # (A) 3.01 X 10*3/uL (0.90-5.00); Lymphocytes % (A) 33.9 %; MCHC 30.5 g/dL (32.0-37.0); MCV 82.1 FL (80.0-97.0); Mean Platelet Volume 9.8 FL (9.5-12.2); Monocytes % (A) 12.4 %; NRBC Per 100 WBC 0 X 10*3/uL (0.00-0.01); Neutrophils # (A) 4.39 X 10*3/uL (1.80-7.70); Neutrophils % (A) 49.5 %; Platelet Count 313 X 10*3/uL (140-440); RBC 3.24 X 10*6/uL (4.10-5.20); RDW 15.1 % (11.5-14.5); WBC 8.88 X 10*3/uL (4.50-10.00)
[2023-10-04 10:18] LABS: ALT 9 U/L (8-44); AST 21 U/L (13-35); Albumin 3.9 g/dL (3.8-4.9); Albumin/Globulin Ratio 1.86 Ratio (1.60-3.17); Alkaline Phosphatase 57 U/L (41-126); BUN/Creat Ratio 19.89 Ratio (12.00-20.00); Blood Urea Nitrogen 17.9 mg/dL (9.0-27.0); Calcium 9.4 mg/dL (8.7-10.3); Carbon Dioxide 23.5 mmol/L (21.6-31.8); Chloride 104 mmol/L (96-109); Globulin 2.1 g/dL (1.6-3.3); Glucose 122 mg/dL (70-110); Potassium 4.4 mmol/L (3.5-5.5); Sodium 138 mmol/L (135-145); Total Bilirubin 0.3 mg/dL (0.3-1.2)
--- NOTE | 2023-10-04 11:55 | P.PN ---
Subjective Progress Note Date: 10/04/23 Principal diagnosis: Anemia 78-year-old female was undergoing workup for knee surgery later this week. She was found to be significantly anemic. Heme positive stools. Denies rectal bleeding or melena. No abdominal pain. No previous endoscopy. Objective - Vital Signs Vital signs: Vital Signs Temp 98.1 F 10/04/23 08:00 Pulse 82 10/04/23 09:00 Resp 16 10/04/23 08:00 BP 176/78 10/04/23 08:00 Pulse Ox 98 10/04/23 08:00 FiO2 Intake & Output 10/03/23 10/04/23 10/04/23 18:59 06:59 18:59 Other: # Voids 5 1 # Bowel Movements 1 - Exam Abdomen: Soft, nondistended, nontender - Labs CBC & Chem 7: 10/04/23 03:56 10/04/23 03:56 Labs: Abnormal Lab Results - Last 24 Hours (Table) 10/04/23 10/04/23 Range/Units 03:56 03:56 RBC 3.24 L (4.10-5.20) X 10*6/uL Hgb 8.1 L (12.0-15.0) g/dL Hct 26.6 L (37.2-46.3) % MCH 25.0 L (27.0-32.0) pg MCHC 30.5 L (32.0-37.0) g/dL RDW 15.1 H (11.5-14.5) % Monocytes # 1.10 H (0.20-1.00) X 10*3/uL Glucose 122 H (70-110) mg/dL Total Protein 6.0 L (6.2-8.2) g/dL Assessment and Plan (1) Anemia Narrative/Plan: 78-year-old female with GI bleed and anemia. Will proceed with upper and lower endoscopy tomorrow. Current Visit: Yes Status: Acute Code(s): D64.9 - ANEMIA, UNSPECIFIED SNOMED Code(s): 309133104
[2023-10-04] MEDS: PEG 3350 (236 GM/BTL) + LYTES 4,000 ML BOTTLE PO ONE (16:26)
--- NOTE | 2023-10-04 17:22 | P.CRDCN ---
History of Present Illness Consult date: 10/04/23 History of present illness: HISTORY OF PRESENTING ILLNESS 78-year-old with PMH of atrial fibrillation on Eliquis, CABG, dyslipidemia presented to the hospital because on outpatient labs she was found to be anemic with a hemoglobin of 7.1. Occult blood is positive stool Personally denies any signs of bleeding or any black tarry stools. Patient denies any chest pain chest pressure. She denies any difficulty breathing nausea or vomiting. She denies any lightheadedness dizziness. Patient was supposed to go for knee surgery next week and her Eliquis was stopped and apparently she was being bridged to Lovenox. REVIEW OF SYSTEMS 14 point review of system is negative except what is mentioned above in HPI. PHYSICAL EXAMINATION Vital signs reviewed. Head: Normocephalic. Eyes: Sclerae nonicteric. Neck: Brisk carotid upstroke, no jugular venous distention. Lungs: Clear to auscultation. Heart: Regular rate and rhythm, S1-S2, no S3, no murmur or rub. Abdomen: Soft nontender, positive bowel sounds. Extremities: No edema, intact distal pulses. Neuro: Alert, oritented, no focal deficits. Detailed neuro exam was not performed. ASSESSMENT Rate controlled atrial fibrillation, chronic Acute on chronic anemia Suspected GI bleeding PLAN Continue Lasix 20 mg, atorvastatin 10 mg Hold AV govind blocking agent as heart rate is already controlled Hold anticoagulation Consider GI workup Asad Enriquez MD, [facility], [facility] Thank you for allowing [facility] to participate in this patient's care. Feel free to reach out in case of any followup questions. Past Medical History Past Medical History: Atrial Fibrillation, Coronary Artery Disease (CAD), Eye Disorder, Hyperlipidemia, Liver Disease, Osteoarthritis (OA) Additional Past Medical History / Comment(s): "Fatty liver", beginnings of cataracts", occasional heartburn, urinary incontinence, occasional SOB, uses O2 at night only at 2L, back pain. History of Any Multi-Drug Resistant Organisms: None Reported Past Surgical History: Coronary Bypass/CABG, Heart Catheterization, Joint Replacement, Orthopedic Surgery, Tonsillectomy, Tubal Ligation Additional Past Surgical History / Comment(s): 2011 quadruple CABG, cervical fusion, left knee arthroscopy, total right hip replacement. Past Anesthesia/Blood Transfusion Reactions: Previous Problems w/ Anesthesia, Family History of Problems w/ Anesthesia Additional Past Anesthesia/Blood Transfusion Reaction / Comment(s): Patient and Mom had hard time waking up. Clausterphobia. Past Psychological History: No Psychological Hx Reported Smoking Status: Former smoker Past Alcohol Use History: None Reported Past Drug Use History: Marijuana - Past Family History Father Family Medical History: Myocardial Infarction ([place]) Additional Family Medical History / Comment(s): from [place] at age 52. Mother Additional Family Medical History / Comment(s): Rheumatic fever, lived to age 85. Medications and Allergies Home Medications Medication Instructions Recorded Confirmed Type Atorvastatin [Lipitor] 10 mg PO HS 04/05/22 10/02/23 History atenoloL [Tenormin] 25 mg PO BID 04/05/22 10/02/23 History Aspirin 81 mg PO DAILY 90 Days #90 tab 04/06/22 10/02/23 Rx Folic Acid 1 mg PO DAILY 90 Days #90 tab 04/06/22 10/02/23 Rx Apixaban [Eliquis] 2.5 mg PO DIRECTED 09/30/23 10/02/23 History Enoxaparin [Lovenox] 40 mg SQ DAILY 09/30/23 10/02/23 History Fexofenadine HCl 180 mg PO DAILY 09/30/23 10/02/23 History Montelukast [Singulair] 10 mg PO DAILY 09/30/23 10/02/23 History Omeprazole 40 mg PO DAILY 09/30/23 10/02/23 History HYDROcodone/APAP 5-325MG [[place] 0.25 tab PO DAILY PRN 10/02/23 10/02/23 History 5-325] Ipratropium-Albuterol Nebulize 3 ml INHALATION RT-TID 10/02/23 10/02/23 History [Duoneb 0.5 mg-3 mg/3 ml Soln] Allergies Allergy/AdvReac Type Severity Reaction Status Date / Time acetaminophen [From Tylenol] AdvReac per Verified 10/02/23 14:56 patient causes fatty liver to worsen Sulfa (Sulfonamide AdvReac Confusion Verified 10/02/23 14:56 Antibiotics) Physical Exam Vitals: Vital Signs Temp Pulse Pulse Resp BP Pulse Ox 10/04/23 12:57 98.2 F 96 16 161/78 99 10/04/23 12:26 88 10/04/23 12:15 86 10/04/23 09:00 82 10/04/23 08:47 80 10/04/23 08:00 98.1 F 64 16 176/78 98 10/04/23 02:00 98.0 F 74 159/84 100 10/03/23 21:35 86 10/03/23 21:24 85 10/03/23 20:00 98.4 F 82 138/67 99 Intake and Output 10/04/23 10/04/23 10/04/23 06:59 14:59 22:59 Other: # Voids 1 Results 10/04/23 03:56 10/04/23 03:56 Cardiac Enzymes 10/04/23 Range/Units 03:56 AST 21 (13-35) U/L CBC 10/04/23 Range/Units 03:56 WBC 8.88 (4.50-10.00) X 10*3/uL RBC 3.24 L (4.10-5.20) X 10*6/uL Hgb 8.1 L (12.0-15.0) g/dL Hct 26.6 L (37.2-46.3) % Plt Count 313 (140-440) X 10*3/uL Comprehensive Metabolic Panel 10/04/23 Range/Units 03:56 Sodium 138 (135-145) mmol/L Potassium 4.4 (3.5-5.5) mmol/L Chloride 104 (96-109) mmol/L Carbon Dioxide 23.5 (21.6-31.8) mmol/L BUN 17.9 (9.0-27.0) mg/dL Creatinine 0.9 (0.6-1.5) mg/dL Glucose 122 H (70-110) mg/dL Calcium 9.4 (8.7-10.3) mg/dL AST 21 (13-35) U/L ALT 9 (8-44) U/L Alkaline Phosphatase 57 (41-126) U/L Total Protein 6.0 L (6.2-8.2) g/dL Albumin 3.9 (3.8-4.9) g/dL Current Medications Generic Name Dose Route Start Last Admin Trade Name Freq PRN Reason Stop Dose Admin Acetaminophen 650 mg 10/02/23 15:51 Acetaminophen Tab 325 Mg Tab PO Q6HR PRN Mild Pain or Fever > 100.5 Hydrocodone Bitart/Acetaminophen 0.25 each 10/02/23 18:54 Hydrocodone/Apap 5-325mg 1 Each Tab PO DAILY PRN Pain Albuterol/Ipratropium 3 ml 10/02/23 20:00 10/04/23 12:15 Ipratropium-Albuterol 3 Ml Neb INHALATION 3 ml RT-TID SHAHAB Administration Atenolol 25 mg 10/02/23 21:00 10/04/23 07:59 Atenolol 25 Mg Tab PO 25 mg BID SHAHAB Administration Atorvastatin Calcium 10 mg 10/02/23 21:00 10/03/23 21:25 Atorvastatin 10 Mg Tab PO 10 mg HS SHAHAB Administration Folic Acid 1 mg 10/04/23 09:00 10/04/23 07:59 Folic Acid 1 Mg Tab PO 1 mg DAILY SHAHAB Administration Furosemide 20 mg 10/03/23 14:00 10/04/23 07:58 Furosemide 20 Mg Tab PO 20 mg DAILY SHAHAB Administration Loratadine 10 mg 10/04/23 09:00 10/04/23 07:59 Loratadine 10 Mg Tab PO 10 mg DAILY SHAHAB Administration Montelukast Sodium 10 mg 10/03/23 09:00 10/04/23 07:58 Montelukast 10 Mg Tab PO 10 mg DAILY SHAHAB Administration Naloxone HCl 0.2 mg 10/02/23 15:51 Naloxone 0.4 Mg/Ml 1 Ml Vial IV Q2M PRN Opioid Reversal Ondansetron HCl 4 mg 10/02/23 15:51 Ondansetron 4 Mg/2 Ml Vial IVP Q8HR PRN Nausea And Vomiting Pantoprazole Sodium 40 mg 10/03/23 07:30 10/04/23 06:46 Pantoprazole 40 Mg Tablet PO 40 mg DAILY@0730 SHAHAB Administration Potassium Chloride 20 meq 10/04/23 09:00 10/04/23 07:59 Potassium Chloride Er 20 Meq Tab.Er PO 20 meq DAILY SHAHAB Administration Intake and Output 10/04/23 10/04/23 10/04/23 06:59 14:59 22:59 Other: # Voids 1 10/04/23 03:56 10/04/23 03:56
[2023-10-05] MEDS ORDERED: PROPOFOL 10 MG/ML 20 ML VIAL IV ONE (11:25)
[2023-10-05] MEDS ORDERED: LIDOCAINE 1% INJ 10MG/ML (20 ML MDV) ONE (11:25)
[2023-10-05] MEDS: SODIUM CHLORIDE 0.9% 500 ML 500 ML IV ONE ×2 (11:32→11:54)
--- NOTE | 2023-10-05 11:53 | P.PCN ---
Date of Procedure: 10/05/23 Procedure(s) Performed: PREOPERATIVE DIAGNOSIS: Anemia, GI bleed POSTOPERATIVE DIAGNOSIS: Gastritis, sigmoid colon polyp, diverticulosis PROCEDURE: 1. EGD with biopsy 2. Colonoscopy with snare polypectomy ANESTHESIA: MAC SURGEON: Zbigniew Stein M.D. SPECIMENS: Antrum ENDOSCOPIC PROCEDURE: The patient was on the endoscopy table in the left decubitus position. The Olympus gastroscope was inserted into the oropharynx and passed under direct visualization to the region of the third portion of the duodenum. From that point the scope was slowly withdrawn inspecting all surfaces carefully. There were no neoplastic inflammatory or polypoid lesions throughout the duodenum. The pylorus was widely patent. The stomach was carefully inspected. There was gastritis present in the prepyloric and antral region. Mild mucosal erythema was present which could have been the source of recent anemia. A biopsy of the antrum took place to rule out H. pylori. Retroflexion revealed a normal hiatus. The esophagus was then carefully examined. There were no neoplastic inflammatory or polypoid lesions throughout the visualized esophagus. The patient was kept on the endoscopy table in the left decubitus position. The Olympus colonoscope was inserted into the anus and passed under direct visualization to the base of the cecum. The appendiceal orifice was visualized. From that point the scope was slowly withdrawn inspecting all surfaces carefully. There were no neoplastic inflammatory or polypoid lesions throughout the cecum, ascending, transverse, and descending colon. In the sigmoid colon a 1 cm pedunculated polyp that had some evidence of irritation and inflammation was removed using the snare with cautery technique. This also could have been the source of recent anemia. This did not appear malignant. The remainder of the sigmoid and rectum was normal. The patient had moderate left-sided diverticulosis. Digital rectal examination was normal. The patient was taken to the recovery room in stable condition per anesthesia guidelines. RECOMMENDATIONS: Resume diet. Hold anticoagulation 24 to 48 hours. May discharge from our point of view.
--- NOTE | 2023-10-05 13:51 | P.PN ---
Subjective HISTORY OF PRESENT ILLNESS: 10/04/2023 78-year-old with PMH of atrial fibrillation on Eliquis, CABG, dyslipidemia presented to the hospital because on outpatient labs she was found to be anemic with a hemoglobin of 7.1. Occult blood is positive stool Personally denies any signs of bleeding or any black tarry stools. Patient denies any chest pain chest pressure. She denies any difficulty breathing nausea or vomiting. She denies any lightheadedness dizziness. Patient was supposed to go for knee surgery next week and her Eliquis was stopped and apparently she was being bridged to Lovenox. 10/05/2023 Patient examined this morning at bedside. Patient currently denies chest pain or pressure. She denies shortness of breath. Vital signs are stable. Patient's Eliquis remains on hold. She is scheduled to undergo EGD and colonoscopy today with general surgery. PHYSICAL EXAM: VITAL SIGNS: Reviewed. GENERAL: Well-developed in no acute distress. NECK: Supple. No JVD or thyromegaly LUNGS: Respirations even and unlabored. Lungs essentially clear to auscultation bilaterally. HEART: Irregular rate and rhythm. S1 and S2 heard. EXTREMITIES: Normal range of motion. No clubbing or cyanosis. Peripheral pulses intact. No lower extremity edema ASSESSMENT: Anemia, rule out GI bleed Permanent atrial fibrillation Coronary artery disease with previous CABG Hyperlipidemia PLAN: Continue to hold anticoagulation Monitor hemoglobin Patient to undergo EGD and colonoscopy today with general surgery. Await results Further recommendations pending patient course Nurse practitioner note has been reviewed by physician. Signing provider agrees with the documented findings, assessment, and plan of care documented by CREDIT COLLECTOR as a scribe. Objective - Vital Signs Vital signs: Vital Signs Temp 97.6 F 10/05/23 12:07 Pulse 74 10/05/23 13:21 Resp 16 10/05/23 12:51 BP 124/75 10/05/23 13:21 Pulse Ox 99 10/05/23 13:21 FiO2 Intake & Output 10/04/23 10/05/23 10/05/23 18:59 06:59 18:59 Intake Total 300 Balance 300 Intake: IV 300 Other: Voiding Method Toilet # Voids 2 4 # Bowel Movements 5 - Labs CBC & Chem 7: 10/04/23 03:56 10/04/23 03:56
[2023-10-05] MEDS: SODIUM FERRIC GLUCONAT-SUCROSE 125 MG in SODIUM CHLORIDE 0.9% 100 ML IVPB SCH (18:11)
--- NOTE | 2023-10-05 20:52 | PN ---
PROGRESS NOTE SUBJECTIVE: The patient was seen by Dr. Stein for doing endoscopy today for anemia. No polypoid lesions in the colon. She has some evidence of irritation after the mesh and it was removed. No malignancy was seen. Moderate diverticulosis. EGD today was also negative. Pulse is 70 to 72, temp 97.7, blood pressure 130s to 140s over 60s to 70s we had decreased her blood pressure pills. Oxygen level 99 on room air. Hemoglobin is 8.1. She is going to recheck it tomorrow. She was stabilized. She can possibly go home. She is waiting for hematology or cardiology to assess blood thinning, possibly will not be able to take aspirin due to bleeding at this time. Also seen by her Eliramyis treatment for Cardiology anemia, rule out GI bleed, permanent atrial fibrillation, coronary artery disease, hypertension. Hold anticoagulation. Monitor hemoglobin. Await further recommendations prior to discharge home, may be tomorrow. OBJECTIVE: LUNGS: Clear. CARDIOVASCULAR: S1, S2. PSYCH: Fair mood and affect. NEUROLOGIC: Alert and oriented x3. SKIN: Pale. MMODL / IJN: [id number] /
[2023-10-06 08:41] LABS: Basophils # (A) 0.11 X 10*3/uL (0.00-0.10); Basophils % (A) 1.2 %; Eosinophils # (A) 0.17 X 10*3/uL (0.04-0.35); Eosinophils % (A) 1.8 %; HCT 28.4 % (37.2-46.3); Lymphocytes # (A) 2.47 X 10*3/uL (0.90-5.00); Lymphocytes % (A) 25.9 %; MCH 25.6 pg (27.0-32.0); MCHC 31.7 g/dL (32.0-37.0); MCV 80.9 FL (80.0-97.0); Mean Platelet Volume 9.8 FL (9.5-12.2); Monocytes # (A) 1.19 X 10*3/uL (0.20-1.00); Monocytes % (A) 12.5 %; NRBC Per 100 WBC 0 X 10*3/uL (0.00-0.01); Neutrophils # (A) 5.58 X 10*3/uL (1.80-7.70); Neutrophils % (A) 58.3 %; Platelet Count 355 X 10*3/uL (140-440); RBC 3.51 X 10*6/uL (4.10-5.20); RDW 15.9 % (11.5-14.5); WBC 9.55 X 10*3/uL (4.50-10.00)
[2023-10-06 08:47] VITALS: RESP 16
--- NOTE | 2023-10-06 12:31 | P.PN ---
Subjective HISTORY OF PRESENT ILLNESS: 10/04/2023 78-year-old with PMH of atrial fibrillation on Eliquis, CABG, dyslipidemia presented to the hospital because on outpatient labs she was found to be anemic with a hemoglobin of 7.1. Occult blood is positive stool Personally denies any signs of bleeding or any black tarry stools. Patient denies any chest pain chest pressure. She denies any difficulty breathing nausea or vomiting. She denies any lightheadedness dizziness. Patient was supposed to go for knee surgery next week and her Eliquis was stopped and apparently she was being bridged to Lovenox. 10/05/2023 Patient examined this morning at bedside. Patient currently denies chest pain or pressure. She denies shortness of breath. Vital signs are stable. Patient's Eliquis remains on hold. She is scheduled to undergo EGD and colonoscopy today with general surgery. 10/06/2023 Patient is status post EGD and colonoscopy yesterday with Dr. Stein. No evidence of acute GI bleeding was found. Patient was cleared to begin anticoagulation from a surgical standpoint. Patient currently denies any chest pain or pressure. She denies any shortness of breath. Vital signs are stable. PHYSICAL EXAM: VITAL SIGNS: Reviewed. GENERAL: Well-developed in no acute distress. NECK: Supple. No JVD or thyromegaly LUNGS: Respirations even and unlabored. Lungs essentially clear to auscultation bilaterally. HEART: Irregular rate and rhythm. S1 and S2 heard. EXTREMITIES: Normal range of motion. No clubbing or cyanosis. Peripheral pulses intact. No lower extremity edema ASSESSMENT: Anemia, rule out GI bleed status post EGD and colonoscopy with no signs of acute GI bleed Permanent atrial fibrillation Coronary artery disease with previous CABG Hyperlipidemia PLAN: Resume Eliquis tonight at lower dose of 2.5 mg twice a day due to recent anemia Continue additional cardiac medications Patient is stable for discharge today from a cardiac standpoint She is to follow-up in the office postdischarge Nurse practitioner note has been reviewed by physician. Signing provider agrees with the documented findings, assessment, and plan of care documented by KARATE TEACHER as a scribe. Objective - Vital Signs Vital signs: Vital Signs Temp 97.6 F 10/06/23 07:20 Pulse 79 10/06/23 08:28 Resp 16 10/06/23 08:28 BP 118/59 10/06/23 07:20 Pulse Ox 100 10/06/23 07:20 FiO2 Intake & Output 10/05/23 10/06/23 10/06/23 18:59 06:59 18:59 Intake Total 300 110 Balance 300 110 Intake: IV 300 10 Invasive Line 1 10 Oral 100 Other: Voiding Method Toilet Toilet Toilet # Voids 1 2 - Labs CBC & Chem 7: 10/06/23 04:22 10/04/23 03:56 Labs: Abnormal Lab Results - Last 24 Hours (Table) 10/06/23 Range/Units 04:22 RBC 3.51 L (4.10-5.20) X 10*6/uL Hgb 9.0 L (12.0-15.0) g/dL Hct 28.4 L (37.2-46.3) % MCH 25.6 L (27.0-32.0) pg MCHC 31.7 L (32.0-37.0) g/dL RDW 15.9 H (11.5-14.5) % Monocytes # 1.19 H (0.20-1.00) X 10*3/uL Basophils # 0.11 H (0.00-0.10) X 10*3/uL
[2023-10-06 15:24] VITALS: BP 118/62; PULSE 68; TEMP 98.1
--- NOTE | 2023-10-06 16:25 | P.PN ---
Subjective Progress Note Date: 10/06/23 CHIEF COMPLAINT: GI bleed HISTORY OF PRESENT ILLNESS: Patient is status post EGD and colonoscopy with res ults reporting gastritis, sigmoid colon polyp and diverticulosis. Patient denies any abdominal pain. Denies any nausea or vomiting. Tolerating diet. Denies any blood in her stools. Hemoglobin has gone up from 8.1-9.0 PHYSICAL EXAM: VITAL SIGNS: Reviewed. GENERAL: Well-developed in no acute distress. ABDOMEN: Soft. Nondistended. Nontender. NEUROLOGIC: Alert and oriented. Cranial nerves II through XII grossly intact. ASSESSMENT: 1. Anemia status post EGD and colonoscopy with results reporting gastritis, sigmoid colon polyp and diverticulosis PLAN: -Patient can be discharged from surgical standpoint -Okay to resume anticoagulation -Continue regular diet Physician Math Teacher note has been reviewed by physician. Signing provider agrees with the documented findings, assessment, and plan of care. Objective - Vital Signs Vital signs: Vital Signs Temp 98.1 F 10/06/23 14:00 Pulse 68 10/06/23 15:10 Resp 16 10/06/23 15:10 BP 118/62 10/06/23 14:00 Pulse Ox 95 10/06/23 15:00 FiO2 Intake & Output 10/05/23 10/06/23 10/06/23 18:59 06:59 18:59 Intake Total 300 210 Balance 300 210 Intake: IV 300 10 Invasive Line 1 10 Oral 200 Other: Voiding Method Toilet Toilet Toilet # Voids 1 2 - Labs CBC & Chem 7: 10/06/23 04:22 10/04/23 03:56 Labs: Abnormal Lab Results - Last 24 Hours (Table) 10/06/23 Range/Units 04:22 RBC 3.51 L (4.10-5.20) X 10*6/uL Hgb 9.0 L (12.0-15.0) g/dL Hct 28.4 L (37.2-46.3) % MCH 25.6 L (27.0-32.0) pg MCHC 31.7 L (32.0-37.0) g/dL RDW 15.9 H (11.5-14.5) % Monocytes # 1.19 H (0.20-1.00) X 10*3/uL Basophils # 0.11 H (0.00-0.10) X 10*3/uL
[2023-10-06] MEDS ORDERED: APIXABAN 2.5 MG TABLET PO SCH (21:00)
--- NOTE | 2023-10-07 00:46 | PN ---
PROGRESS NOTE SUBJECTIVE: A 78-year-old white female, hemoglobin was 8.1. She is status post EGD colonoscopy, biopsy is not back yet. She has had no further bleeding. Her hemoglobin stabilized. She is back on Eliquis for over a day, 2.5 b.i.d. She will be discharged home. Follow up as an outpatient. OBJECTIVE: CARDIOVASCULAR: S1, S2. LUNGS: Decreased breath sounds. GI: Soft. HEMATOLOGY: Negative for Homans. ASSESSMENT: Acute on chronic anemia, GI bleeding. No further bleeding. Hemoglobin stabilized. Continue current medications. Back on Eliquis for 2.5 b.i.d. Continue home medicines as ordered above. PROGNOSIS: Guarded. Follow up in a week. MMODL / IJN: [id number] /
== END 2023-10-06 19:31 | disposition home or self-care (01) ==
LOC: EC 13:19 → 4SSUR 15:53
PROVIDERS: ADMIT Family Medicine; ATTEND Family Medicine
DX: K63.5 Polyp of colon (principal); D50.0 Iron deficiency anemia secondary to blood loss (chronic); K57.30 Diverticulosis of large intestine without perforation or abscess without bleeding; I25.10 Atherosclerotic heart disease of native coronary artery without angina pectoris; I48.91 Unspecified atrial fibrillation; Z79.01 Long term (current) use of anticoagulants; E78.5 Hyperlipidemia, unspecified; Z96.641 Presence of right artificial hip joint; Z95.1 Presence of aortocoronary bypass graft; Z87.19 Personal history of other diseases of the digestive system; Z82.49 Family history of ischemic heart disease and other diseases of the circulatory system; Z79.899 Other long term (current) drug therapy; Z79.82 Long term (current) use of aspirin
CPT/HCPCS: 96365; 96366; 96375; 99285; 36415; 94640 ×8; 94760 ×2; 93005; 86900; 86901; 88305; 80053 ×3; 83605; 83690; 85025 ×4; 85610; 85730; 86850; 86920; 82272; 81001; 71250; 45385; 43239; G0378 ×5; P9016; J2001; J2916 ×2; J2704; C9113

== ENCOUNTER → 2023-10-16 | Outpatient (CLI) | payer MEDICARE ==
[2023-10-16 13:05] LABS: Anisocytosis Slight; HCT 34.7 % (34.0-46.0); Hypochromasia Marked; MCH 25.7 pg (25.0-35.0); MCHC 30.2 g/dL (31.0-37.0); MCV 85.2 fL (80.0-100.0); Mean Platelet Volume 8.3; Platelet Count 392 k/uL (150-450); RBC 4.07 m/uL (3.80-5.40); RDW 16.8 % (11.5-15.5); WBC 11.1 k/uL (3.8-10.6)
[2023-10-16 13:11] LABS: HGB 10.5 gm/dL (11.4-16.0)
== END | disposition home or self-care (01) ==
LOC: LABWHC1 12:38
PROVIDERS: ATTEND Family Medicine
DX: I10 Essential (primary) hypertension (principal); D50.9 Iron deficiency anemia, unspecified
CPT/HCPCS: 36415; 83540; 85027

== ENCOUNTER 2023-12-08 10:20 | Observation (INO) | payer MEDICARE ==
--- NOTE | 2023-12-08 11:22 | ED ---
Recheck HPI - General Chief Complaint: Recheck/Abnormal Lab/Rx Stated Complaint: Abn Labs Time Seen by Provider: 12/08/23 11:20 Source: patient, RN notes reviewed Mode of arrival: ambulatory Limitations: no limitations - History of Present Illness Initial Comments: 78-year-old female presented to the ER sent by primary care physician for low hemoglobin. Patient sent by Dr. Gaytan as she had routine blood work drawn yesterday and was found to have a hemoglobin of 6. Patient states in September she was scheduled for a total knee arthroplasty and was having routine medical clearance by me Dr. Gaytan. She was found to have a low hemoglobin at that ti sc and required transfusion. She states she underwent EGD and colonoscopy and source of bleeding was undetermined. Patient denies any chest pain, shortness of breath, dizziness, lightheadedness, melena, hematochezia. Patient does report frequent chills. Patient does take Eliquis daily for atrial fibrillation. - Related Data Home Medications Medication Instructions Recorded Confirmed Atorvastatin [Lipitor] 10 mg PO HS 04/05/22 12/08/23 atenoloL [Tenormin] 25 mg PO BID 04/05/22 12/08/23 Fexofenadine HCl 180 mg PO DAILY 09/30/23 12/08/23 Montelukast [Singulair] 10 mg PO DAILY 09/30/23 12/08/23 Omeprazole 40 mg PO DAILY 09/30/23 12/08/23 Ipratropium-Albuterol Nebulize 3 ml INHALATION RT-TID 10/02/23 12/08/23 [Duoneb 0.5 mg-3 mg/3 ml Soln] Previous Rx's Medication Instructions Recorded Aspirin 81 mg PO DAILY 90 Days #90 tab 04/06/22 Folic Acid 1 mg PO DAILY 90 Days #90 tab 04/06/22 Apixaban [Eliquis] 2.5 mg PO BID tab 10/06/23 Potassium Chloride ER [K-Dur 20] 20 meq PO DAILY 30 Days #30 tab 10/06/23 Allergies Allergy/AdvReac Type Severity Reaction Status Date / Time acetaminophen [From Tylenol] AdvReac per Verified 12/08/23 11:00 patient causes fatty liver to worsen Sulfa (Sulfonamide AdvReac Unknown Verified 12/08/23 11:00 Antibiotics) Review of Systems ROS Statement: Those systems with pertinent positive or pertinent negative responses have been documented in the HPI. ROS Other: All systems not noted in ROS Statement are negative. Past Medical History Past Medical History: Atrial Fibrillation, Coronary Artery Disease (CAD), Eye Disorder, Hyperlipidemia, Liver Disease, Osteoarthritis (OA) Additional Past Medical History / Comment(s): "Fatty liver", beginnings of cataracts", occasional heartburn, urinary incontinence, occasional SOB, uses O2 at night only at 2L, back pain. History of Any Multi-Drug Resistant Organisms: None Reported Past Surgical History: Coronary Bypass/CABG, Heart Catheterization, Joint Replacement, Orthopedic Surgery, Tonsillectomy, Tubal Ligation Additional Past Surgical History / Comment(s): 2011 quadruple CABG, cervical fusion, left knee arthroscopy, total right hip replacement. Past Anesthesia/Blood Transfusion Reactions: Previous Problems w/ Anesthesia, Family History of Problems w/ Anesthesia Additional Past Anesthesia/Blood Transfusion Reaction / Comment(s): Patient and Mom had hard time waking up. Clausterphobia. Past Psychological History: No Psychological Hx Reported Smoking Status: Former smoker Past Alcohol Use History: None Reported Past Drug Use History: None Reported - Past Family History Father Family Medical History: Myocardial Infarction ([place]) Additional Family Medical History / Comment(s): from [place] at age 52. Mother Additional Family Medical History / Comment(s): Rheumatic fever, lived to age 85. General Exam Limitations: no limitations General appearance: alert, in no apparent distress Respiratory exam: Present: normal lung sounds bilaterally. Absent: respiratory distress, wheezes, rales, rhonchi, stridor Cardiovascular Exam: Present: regular rate, irregular rhythm, normal heart sounds GI/Abdominal exam: Present: soft, normal bowel sounds. Absent: distended, tenderness, guarding, rebound, rigid Neurological exam: Present: alert, oriented X3, CN II-XII intact Skin exam: Present: warm, dry, intact, pallor Course Vital Signs 12/08/23 12/08/23 12/08/23 10:26 12:29 13:56 Temperature 97.7 F 98.1 F 97.5 F L Pulse Rate 75 70 99 Respiratory 18 18 18 Rate Blood Pressure 121/64 155/71 161/64 O2 Sat by Pulse 100 99 98 Oximetry - Reevaluation(s) Reevaluation #1: 12/08/23 14:[address] Gaytan who accepts admission Medical Decision Making - Medical Decision Making Was pt. sent in by a medical professional or institution (, TANIYA, DATA ARCHITECT MANAGER, urgent care, hospital, or [facility]...) When possible be specific @ -Patient sent by PCP, Dr. Gaytan, for evaluation of low hemoglobin. Did you speak to anyone other than the patient for history (EMS, parent, family, police, friend...)? What history was obtained from this source @ -Family at bedside aiding in PMHx. Did you review nursing and triage notes (agree or disagree)? Why? @ -I reviewed and agree with nursing and triage notes Were old charts reviewed (outside hosp., previous admission, EMS record, old EKG, old radiological studies, urgent care reports/EKG's, [facility] records)? Report findings @ -From recent admission I did review all laboratory studies on 10-02-2023. Hemoglobin on admission 7.1 stool occult was positive at that time. Review of charts from admission showing patient underwent extensive workup including colonoscopy and EGD. No source of bleeding was identified. Patient discharged home on 10/06/23. Differential Diagnosis (chest pain, altered mental status, abdominal pain women, abdominal pain men, vaginal bleeding, weakness, fever, dyspnea, syncope, headache, dizziness, GI bleed, back pain, seizure, CVA, palpatations, mental health, musculoskeletal)? @ -Differential Dizziness: Benign paroxysmal positional Vertigo, Menieres disease, otitis media, acoustic neuroma, vertebrobasilar insufficiency, cerebellar stroke, encephalitis, hypovolemic, arrhythmia, coronary artery syn drome, anemia, this is not meant to be an all-inclusive list EKG interpreted by me (3pts min.). @ -None X-rays interpreted by me (1pt min.). @ -None done CT interpreted by me (1pt min.). @ -None done U/S interpreted by me (1pt. min.). @ -None done What testing was considered but not performed or refused? (CT, X-rays, U/S, labs)? Why? @ -None What meds were considered but not given or refused? Why? @ -None Did you discuss the management of the patient with other professionals (professionals i.e. Dr., PA, DATA ARCHITECT MANAGER, lab, RT, psych nurse, social services coordinator, criminal justice lawyer, teacher, biological technical officer, piano case and bench assembler)? Give summary @ -Yes I discussed this case with Dr. Gaytan for admission. Was smoking cessation discussed for >3mins.? @ -No Was critical care preformed (if so, how long)? @ -No Were there social determinants of health that impacted care today? How? (Homelessness, low income, unemployed, alcoholism, drug addiction, transportation, low edu. Level, literacy, decrease access to med. care, long term, rehab)? @ -No Was there de-escalation of care discussed even if they declined (Discuss DNR or withdrawal of care, Hospice)? DNR status @ -No What co-morbidities impacted this encounter? (DM, HTN, Smoking, COPD, CAD, Cancer, CVA, ARF, Chemo, Hep., AIDS, mental health diagnosis, sleep apnea, mor bid obesity)? @ -Atrial fibrillation on Eliquis, iron deficiency anemia Was patient admitted / discharged? Hospital course, mention meds given and route, prescriptions, significant lab abnormalities, going to OR and other pertinent info. @ - Admitted. 78-year-old female presenting to the ER from PCP for evaluation of low hemoglobin. Patient had laboratory studies drawn yesterday and h emoglobin was found to be 6.9 per patient. Patient does report a history of blood transfusions in the past due to low hemoglobin. History and physical exam completed. Vitals stable. Patient in no signs of acute distress and appearing pale on exam. Exam remarkable for irregular rhythm normal heart sounds. Rectal exam performed and chaperoned by Noris GRIMM. Exam negative for gross blood. Normal rectal tone. Laboratory studies obtained remarkable for normocytic normochromic anemia hemoglobin 7.1. Otherwise unremarkable. Stool occult negative. Admission considered for anemia and blood transfusion. I discussed this case with Dr. Gaytan for admission. Patient received 1 units PRBCs in the ER. Upon reevaluation, patient resting comfortably in exam room no signs of acute distress. Results discussed with patient, all questions answered. Patient agreeable for admission. Patient in stable condition for further evaluation and treatment. Case discussed with ED attending, Dr. Sauer. Undiagnosed new problem with uncertain prognosis? @ -No Drug Therapy requiring intensive monitoring for toxicity (Heparin, Nitro, Insulin, Cardizem)? @ -No Were any procedures done? @ -No Diagnosis/symptom? @ -Anemia Acute, or Chronic, or Acute on Chronic? @ -Acute Uncomplicated (without systemic symptoms) or Complicated (systemic symptoms)? @ -Complicated Side effects of treatment? @ -No Exacerbation, Progression, or Severe Exacerbation? @ -No Poses a threat to life or bodily function? How? (Chest pain, [place], [place], pneumonia, PE, COPD, DKA, ARF, appy, cholecystitis, CVA, Diverticulitis, Homicidal, Suicidal, threat to staff... and all critical care pts) @ -Yes, anemia can lead to hypoxia which is life threatening. - Lab Data Result diagrams: 12/08/23 11:00 12/08/23 11:00 Lab Results 12/08/23 12/08/23 12/08/23 Range/Units 11:00 11:00 11:00 WBC 9.5 (3.8-10.6) k/uL RBC 2.84 L (3.80-5.40) m/uL Hgb 7.1 L D (11.4-16.0) gm/dL Hct 23.1 L (34.0-46.0) % MCV 81.3 (80.0-100.0) fL MCH 25.0 (25.0-35.0) pg MCHC 30.7 L (31.0-37.0) g/dL RDW 17.4 H (11.5-15.5) % Plt Count 418 (150-450) k/uL MPV 7.2 Neutrophils % 68 % Lymphocytes % 22 % Monocytes % 6 % Eosinophils % 3 % Basophils % 1 % Neutrophils # 6.4 (1.3-7.7) k/uL Lymphocytes # 2.0 (1.0-4.8) k/uL Monocytes # 0.5 (0-1.0) k/uL Eosinophils # 0.3 (0-0.7) k/uL Basophils # 0.1 (0-0.2) k/uL Hypochromasia Marked Anisocytosis Slight Microcytosis Slight PT 10.7 (10.0-12.5) sec INR 1.0 (<1.2) APTT 24.2 (22.0-30.0) sec Sodium (137-145) mmol/L Potassium (3.5-5.1) mmol/L Chloride (98-107) mmol/L Carbon Dioxide (22-30) mmol/L Anion Gap mmol/L BUN (7-17) mg/dL Creatinine (0.52-1.04) mg/dL Est GFR (CKD-EPI)AfAm (>60 ml/min/1.73 sqM) Est GFR (CKD-EPI)NonAf (>60 ml/min/1.73 sqM) Glucose (74-99) mg/dL Calcium (8.4-10.2) mg/dL Total Bilirubin (0.2-1.3) mg/dL AST (14-36) U/L ALT (4-34) U/L Alkaline Phosphatase (38-126) U/L Total Protein (6.3-8.2) g/dL Albumin (3.5-5.0) g/dL Stool Occult Blood Negative (Negative) Blood Type Blood Type Recheck Bld Type Recheck Status Antibody Screen Spec Expiration Date 12/08/23 12/08/23 Range/Units 11:00 11:50 WBC (3.8-10.6) k/uL RBC (3.80-5.40) m/uL Hgb (11.4-16.0) gm/dL Hct (34.0-46.0) % MCV (80.0-100.0) fL MCH (25.0-35.0) pg MCHC (31.0-37.0) g/dL RDW (11.5-15.5) % Plt Count (150-450) k/uL MPV Neutrophils % % Lymphocytes % % Monocytes % % Eosinophils % % Basophils % % Neutrophils # (1.3-7.7) k/uL Lymphocytes # (1.0-4.8) k/uL Monocytes # (0-1.0) k/uL Eosinophils # (0-0.7) k/uL Basophils # (0-0.2) k/uL Hypochromasia Anisocytosis Microcytosis PT (10.0-12.5) sec INR (<1.2) APTT (22.0-30.0) sec Sodium 140 (137-145) mmol/L Potassium 4.5 (3.5-5.1) mmol/L Chloride 110 H (98-107) mmol/L Carbon Dioxide 23 (22-30) mmol/L Anion Gap 7 mmol/L BUN 21 H (7-17) mg/dL Creatinine 0.88 (0.52-1.04) mg/dL Est GFR (CKD-EPI)AfAm 73 (>60 ml/min/1.73 sqM) Est GFR (CKD-EPI)NonAf 64 (>60 ml/min/1.73 sqM) Glucose 102 H (74-99) mg/dL Calcium 9.6 (8.4-10.2) mg/dL Total Bilirubin 0.4 (0.2-1.3) mg/dL AST 21 (14-36) U/L ALT 12 (4-34) U/L Alkaline Phosphatase 63 (38-126) U/L Total Protein 6.4 (6.3-8.2) g/dL Albumin 3.9 (3.5-5.0) g/dL Stool Occult Blood (Negative) Blood Type A Negative Blood Type Recheck A Neg Bld Type Recheck Status No Antibody Screen NEGATIVE Spec Expiration Date 12/11/20232349 Disposition Clinical Impression: Normocytic normochromic anemia, History of blood transfusion Disposition: ADMITTED IP TO THIS [facility] Condition: Stable Referrals: Latrell Gaytan MD [Primary Care Provider] - 1-2 days Time of Disposition: 14:14
[2023-12-08 11:29] LABS: ALT 12 U/L (4-34); AST 21 U/L (14-36); African American GFR (CKD) 73 (>60 ml/min/1.73 sqM); Albumin 3.9 g/dL (3.5-5.0); Alkaline Phosphatase 63 U/L (38-126); Anion Gap 7 mmol/L; Blood Urea Nitrogen 21 mg/dL (7-17); Calcium 9.6 mg/dL (8.4-10.2); Carbon Dioxide 23 mmol/L (22-30); Chloride 110 mmol/L (98-107); Glucose 102 mg/dL (74-99); Non-African American GFR(CKD) 64 (>60 ml/min/1.73 sqM); Potassium 4.5 mmol/L (3.5-5.1); Sodium 140 mmol/L (137-145); Total Bilirubin 0.4 mg/dL (0.2-1.3); Total Protein 6.4 g/dL (6.3-8.2)
[2023-12-08 11:33] LABS: Partial Thromboplastin Time 24.2 sec (22.0-30.0); Prothrombin Time 10.7 sec (10.0-12.5)
[2023-12-08 11:49] LABS: Anisocytosis Slight; Basophils # (A) 0.1 k/uL (0-0.2); Basophils % (A) 1 %; Eosinophils # (A) 0.3 k/uL (0-0.7); Eosinophils % (A) 3 %; HCT 23.1 % (34.0-46.0); Hypochromasia Marked; Lymphocytes % (A) 22 %; MCHC 30.7 g/dL (31.0-37.0); MCV 81.3 fL (80.0-100.0); Mean Platelet Volume 7.2; Microcytosis Slight; Monocytes # (A) 0.5 k/uL (0-1.0); Monocytes % (A) 6 %; Neutrophils # (A) 6.4 k/uL (1.3-7.7); Neutrophils % (A) 68 %; Platelet Count 418 k/uL (150-450); RBC 2.84 m/uL (3.80-5.40); RDW 17.4 % (11.5-15.5); WBC 9.5 k/uL (3.8-10.6)
[2023-12-08 11:50] LABS: HGB 7.1 gm/dL (11.4-16.0)
[2023-12-08] MEDS ORDERED: NALOXONE 0.4 MG/ML 1 ML VIAL IV PRN (13:47)
[2023-12-08] MEDS ORDERED: ONDANSETRON 4 MG/2 ML VIAL IVP PRN (13:47)
[2023-12-08] MEDS ORDERED: MORPHINE SULFATE 2 MG/ML SYRINGE IVP PRN (13:48)
[2023-12-08 14:23] LABS: Appearance,Urine Clear (Clear); Bacteria,Urine Many /hpf; Bilirubin,Urine Negative (Negative); Blood,Urine Negative (Negative); Color,Urine Colorless; Glucose,Urine (UA) Negative (Negative); Ketones,Urine Negative (Negative); Leukocyte Esterase,Urine Trace (Negative); Mucus,Urine Rare /hpf; Nitrite,Urine Positive (Negative); Protein,Urine Negative (Negative); RBC,Urine <1 /hpf (0-5); Specific Gravity,Urine 1.014 (1.001-1.035); Urobilinogen,Urine <2.0 mg/dL (<2.0); WBC,Urine 7 /hpf (0-5)
[2023-12-08] MEDS: IPRATROPIUM-ALBUTEROL 3 ML NEB INHALATION SCH (20:13)
[2023-12-08] MEDS: atenoloL 25 MG TAB PO SCH (20:30)
[2023-12-08] MEDS: ATORVASTATIN 10 MG TAB PO SCH (20:31)
--- NOTE | 2023-12-08 22:54 | HP ---
HISTORY AND PHYSICAL HISTORY OF PRESENT ILLNESS: She came to the emergency room with a hemoglobin of 6.9 to 7.1. She is scheduled for total knee arthroscopy, was supposed to have a stress test today, but due to hemoglobin being low, we started to the hospital, at which time she has been ordered for a unit of blood. HOME MEDICINES: 1. Lipitor 10 daily. 2. Tenormin 25 b.i.d. 3. Fexofenadine 180 daily. 4. Singulair 10 daily. 5. Omeprazole 40 daily. 6. DuoNeb q.i.d. 7. Eliquis 2.5 b.i.d. 8. Folic acid 1 mg daily. 9. Aspirin 81 daily. 10.Potassium chloride 20 mEq daily. PAST MEDICAL HISTORY: Atrial fibrillation, coronary artery disease, eye disorder, dyslipidemia, liver disease, osteoarthritis, fatty liver, CABG surgery, heart catheterization, orthopedic surgery, tonsillectomy, tubal ligation, total right hip replacement. FAMILY HISTORY: Father with myocardial infarction. Mother rheumatic fever. PHYSICAL EXAMINATION: VITAL SIGNS: Temp 97.7, blood pressure 121/64, O2 100, pulse 75, respiratory rate 16 to 18. SKIN: White, dry, decreased skin turgor, pale. GI: Soft. CARDIOVASCULAR: S1, S2. LUNGS: Clear. PSYCH: Fair mood and affect. ASSESSMENT AND PLAN: Acute on chronic anemia, unclear etiology, was give a unit of blood. Get GI recommendation. Recent endoscopy did fail to show any signs of bleeding. PROGNOSIS: Guarded. Please see further orders. MMODL / IJN: [id number] /
[2023-12-09 00:46] VITALS: RESP 16
[2023-12-09] MEDS: PANTOPRAZOLE 40 MG TABLET PO SCH (08:27)
[2023-12-09] MEDS: FOLIC ACID 1 MG TAB PO SCH (08:27)
[2023-12-09] MEDS: MONTELUKAST 10 MG TAB PO SCH (08:27)
[2023-12-09] MEDS: LORATADINE 10 MG TAB PO SCH (08:27)
[2023-12-09] MEDS: ASPIRIN 81 MG PO SCH (08:27)
[2023-12-09] MEDS: POTASSIUM CHLORIDE ER 20 MEQ TAB.ER PO SCH (08:27)
[2023-12-09 10:34] LABS: Eosinophils # (A) 0.42 X 10*3/uL (0.04-0.35); Eosinophils % (A) 4.1 %; HCT 26.3 % (37.2-46.3); HGB 8.3 g/dL (12.0-15.0); Lymphocytes # (A) 2.87 X 10*3/uL (0.90-5.00); Lymphocytes % (A) 27.8 %; MCH 26.3 pg (27.0-32.0); MCHC 31.6 g/dL (32.0-37.0); MCV 83.2 FL (80.0-97.0); Mean Platelet Volume 9.6 FL (9.5-12.2); Monocytes # (A) 0.85 X 10*3/uL (0.20-1.00); Monocytes % (A) 8.2 %; NRBC Per 100 WBC 0 X 10*3/uL (0.00-0.01); Neutrophils # (A) 6.05 X 10*3/uL (1.80-7.70); Neutrophils % (A) 58.5 %; Platelet Count 351 X 10*3/uL (140-440); RBC 3.16 X 10*6/uL (4.10-5.20); RDW 17.7 % (11.5-14.5); WBC 10.33 X 10*3/uL (4.50-10.00)
[2023-12-09 10:59] LABS: ALT 13 U/L (8-44); AST 25 U/L (13-35); Albumin/Globulin Ratio 1.82 Ratio (1.60-3.17); Alkaline Phosphatase 73 U/L (41-126); Blood Urea Nitrogen 19.6 mg/dL (9.0-27.0); Calcium 8.9 mg/dL (8.7-10.3); Carbon Dioxide 22.2 mmol/L (21.6-31.8); Chloride 106 mmol/L (96-109); Globulin 2.2 g/dL (1.6-3.3); Glucose 104 mg/dL (70-110); Potassium 4.7 mmol/L (3.5-5.5); Sodium 138 mmol/L (135-145); Total Bilirubin 0.4 mg/dL (0.3-1.2); Total Protein 6.2 g/dL (6.2-8.2)
[2023-12-09 11:28] LABS: Anisocytosis Slight; Basophils # (A) 0.1 k/uL (0-0.2); Basophils % (A) 1 %; Eosinophils # (A) 0.3 k/uL (0-0.7); Eosinophils % (A) 3 %; HCT 28.2 % (34.0-46.0); Hypochromasia Marked; Lymphocytes % (A) 26 %; MCH 26.2 pg (25.0-35.0); MCHC 30.9 g/dL (31.0-37.0); MCV 84.9 fL (80.0-100.0); Mean Platelet Volume 7.4; Monocytes # (A) 0.4 k/uL (0-1.0); Monocytes % (A) 5 %; Neutrophils # (A) 4.6 k/uL (1.3-7.7); Neutrophils % (A) 62 %; Platelet Count 393 k/uL (150-450); Poikilocytosis Slight; RBC 3.33 m/uL (3.80-5.40); RDW 17.4 % (11.5-15.5); WBC 7.4 k/uL (3.8-10.6)
[2023-12-09 11:39] LABS: HGB 8.7 gm/dL (11.4-16.0)
--- NOTE | 2023-12-09 13:45 | PN ---
PROGRESS NOTE SUBJECTIVE: Hemoglobin was up with 1 unit of blood. Hemoglobin went from 6.9 up to 8.3 and then up to 8.7 today. We held her Eliquis. She will have to go home on Eliquis. She had recent EGD and colonoscopy that showed no significant reasons for bleeding in the last 6 months. She will be sent home without Eliquis, for atrial fibrillation protection just on aspirin. Monitor hemoglobins for few days prior to restarting it. OBJECTIVE: VITAL SIGNS: Her blood pressure is stable on discharge, she is 99 on 2 L, pulse 50 to 56, temperature 97.8, and blood pressure 153/76. CARDIOVASCULAR: S1 and S2. HEMATOLOGY: Negative Homans. PSYCH: Fair mood and affect. PLAN: We will discharge her home. Continue current treatments. Possibly add one more medication for hypertension and follow up as an outpatient. Please see further orders. MMODL / IJN: [id number] /
[2023-12-09 13:57] VITALS: BP 117/67; PULSE 90; TEMP 97.9
--- NOTE | 2023-12-09 18:11 | P.CONS ---
History of Present Illness - Reason for Consult Consult date: 12/09/23 anemia Requesting physician: Latrell Gaytan - Chief Complaint low hgb - History of Present Illness Patient is a 78 year old female with a significant history of CABG and atrial fibrillation anticoagulated with Eliquis. Consult was placed for anemia. Patient was sent to the ER by her PCP for low hemoglobin noted on CBC obtained in clinic. Patient was admitted in September for the same, at which time she received 1 unit PRBCs for hgb 7.1, but she does not recall getting IV iron and has not been taking any oral iron. Iron was 67 at that time, but no additional anemia labs we re obtained. Upper and lower GI was performed by Dr. Stein on 10/05/23 and showed no evidence of acute GI bleed. Upon trending labs, mild anemia was noted in 2018 with hgb 11.1, otherwise hgb has been in the normal range from available labs within EMR, until her admission on 09/15/23 at which time hgb was in the 7 range. Upon admission CBC showed, hgb 7.1, MCV 81.3, MCH 25.0. Plts 418,000, WBC 9.5. 1 unit PRBCs has been given. Eliquis has been held. Repeat hgb today 8.7. Creatinine 0.88, GFR 64. Coags WNL. Stool occult negative. She denies any episodes of acute bleeding, bowel changes, and melena. Denies dizziness, palpitations, chest pain, and abdominal pain. Review of Systems 10 point ROS is negative except as stated in the HPI Past Medical History Past Medical History: Atrial Fibrillation, Coronary Artery Disease (CAD), Eye Disorder, Hyperlipidemia, Liver Disease, Osteoarthritis (OA) Additional Past Medical History / Comment(s): "Fatty liver", beginnings of cataracts", occasional heartburn, urinary incontinence, occasional SOB, uses O2 at night only at 2L, back pain. History of Any Multi-Drug Resistant Organisms: None Reported Past Surgical History: Appendectomy, Coronary Bypass/CABG, Heart Catheterization, Joint Replacement, Orthopedic Surgery, Tonsillectomy, Tubal Ligation Additional Past Surgical History / Comment(s): 2011 quadruple CABG, cervical fusion, left knee arthroscopy, total right hip replacement. Past Anesthesia/Blood Transfusion Reactions: Previous Problems w/ Anesthesia, Family History of Problems w/ Anesthesia Additional Past Anesthesia/Blood Transfusion Reaction / Comm: Patient and Mom had hard time waking up. Clausterphobia. Past Psychological History: No Psychological Hx Reported Smoking Status: Former smoker Past Alcohol Use History: None Reported Additional Past Alcohol Use History / Comment(s): Started smoking at age 13, smoked 1/2 ppd and quit in 2009. Past Drug Use History: None Reported - Past Family History Father Family Medical History: Myocardial Infarction ([place]) Additional Family Medical History / Comment(s): from [place] at age 52. Mother Additional Family Medical History / Comment(s): Rheumatic fever, lived to age 85. Medications and Allergies Home Medications Medication Instructions Recorded Confirmed Type Atorvastatin [Lipitor] 10 mg PO HS 04/05/22 12/08/23 History atenoloL [Tenormin] 25 mg PO BID 04/05/22 12/08/23 History Aspirin 81 mg PO DAILY 90 Days #90 tab 04/06/22 12/08/23 Rx Folic Acid 1 mg PO DAILY 90 Days #90 tab 04/06/22 12/08/23 Rx Fexofenadine HCl 180 mg PO DAILY 09/30/23 12/08/23 History Montelukast [Singulair] 10 mg PO DAILY 09/30/23 12/08/23 History Omeprazole 40 mg PO DAILY 09/30/23 12/08/23 History Ipratropium-Albuterol Nebulize 3 ml INHALATION RT-TID 10/02/23 12/08/23 History [Duoneb 0.5 mg-3 mg/3 ml Soln] Potassium Chloride ER [K-Dur 20] 20 meq PO DAILY 30 Days #30 tab 10/06/23 12/08/23 Rx amLODIPine [Norvasc] 2.5 mg PO DAILY 30 Days #30 tab 12/09/23 Rx Allergies Allergy/AdvReac Type Severity Reaction Status Date / Time acetaminophen [From Tylenol] AdvReac per Verified 12/08/23 11:00 patient causes fatty liver to worsen Sulfa (Sulfonamide AdvReac Unknown Verified 12/08/23 11:00 Antibiotics) Physical Exam Vitals: Vital Signs Temp Pulse Pulse Resp BP BP BP 12/09/23 10:02 56 L 12/09/23 09:52 50 L 12/09/23 07:30 97.8 F 59 L 16 153/76 12/09/23 00:45 98.2 F 66 16 134/65 12/08/23 20:22 72 12/08/23 20:15 70 12/08/23 19:55 67 18 12/08/23 19:41 97.8 F 67 18 152/69 12/08/23 19:26 97.7 F 61 18 135/56 12/08/23 17:43 97.6 F 74 20 149/70 12/08/23 17:23 98.5 F 80 18 150/64 12/08/23 16:34 97.6 F 83 18 176/68 180/70 12/08/23 15:50 97.9 F 18 160/92 12/08/23 15:40 69 18 161/85 12/08/23 15:30 73 15 149/82 12/08/23 15:20 64 18 149/82 12/08/23 15:10 61 18 152/72 12/08/23 15:00 66 22 167/88 12/08/23 14:50 75 18 167/88 12/08/23 14:40 68 18 166/76 12/08/23 14:30 75 18 173/79 12/08/23 14:20 70 18 173/79 12/08/23 14:10 71 18 174/80 12/08/23 14:00 161/64 12/08/23 13:56 97.5 F L 99 18 161/64 12/08/23 13:50 161/64 12/08/23 13:40 18 161/70 12/08/23 13:30 18 157/77 12/08/23 13:20 18 157/77 12/08/23 13:10 18 156/79 12/08/23 13:00 18 155/71 12/08/23 12:29 98.1 F 70 18 155/71 Pulse Ox 12/09/23 10:02 12/09/23 09:52 99 12/09/23 07:30 100 12/09/23 00:45 98 12/08/23 20:22 12/08/23 20:15 12/08/23 19:55 12/08/23 19:41 100 12/08/23 19:26 99 12/08/23 17:43 100 12/08/23 17:23 99 12/08/23 16:34 100 12/08/23 15:50 07/23/24 15:40 98 12/08/23 15:30 98 12/08/23 15:20 100 12/08/23 15:10 99 12/08/23 15:00 100 12/08/23 14:50 100 12/08/23 14:40 99 12/08/23 14:30 100 12/08/23 14:20 100 12/08/23 14:10 96 12/08/23 14:00 99 12/08/23 13:56 98 12/08/23 13:50 99 12/08/23 13:40 100 12/08/23 13:30 100 12/08/23 13:20 99 12/08/23 13:10 98 12/08/23 13:00 99 12/08/23 12:29 99 Intake and Output 12/08/23 12/09/23 12/09/23 22:59 06:59 14:59 Intake Total 527 Balance 527 Intake: Oral 240 Blood Product 287 Rc Pheresis As-3 Unit 287 [id number] Other: Voiding Method Toilet # Voids 2 Weight 54.431 kg - Constitutional General appearance: average body habitus, no acute distress - EENT Eyes: anicteric sclerae, EOMI ENT: hearing grossly normal - Respiratory Respiratory: bilateral: CTA - Cardiovascular Rhythm: regular - Gastrointestinal General gastrointestinal: soft, no tenderness - Integumentary Integumentary: no cyanotic, no jaundiced, pale - Neurologic grossly intact - Musculoskeletal Musculoskeletal: strength equal bilaterally - Psychiatric Psychiatric: A&O x's 3 Results CBC & Chem 7: 12/09/23 11:09 12/09/23 06:26 Labs: Abnormal Lab Results - Last 24 Hours (Table) 12/08/23 12/08/23 12/08/23 Range/Units 11:00 11:50 13:55 WBC (4.50-10.00) X 10*3/uL RBC 2.84 L (3.80-5.40) m/uL Hgb 7.1 L D (11.4-16.0) gm/dL Hct 23.1 L (34.0-46.0) % MCH (27.0-32.0) pg MCHC 30.7 L (31.0-37.0) g/dL RDW 17.4 H (11.5-15.5) % Eosinophils # (0.04-0.35) X 10*3/uL Est GFR (CKD-EPI) (>=60) Urine Nitrite Positive H (Negative) Ur Leukocyte Esterase Trace H (Negative) Urine WBC 7 H (0-5) /hpf Urine Bacteria Many H (None) /hpf Urine Mucus Rare H (None) /hpf Crossmatch See Detail 12/09/23 12/09/23 12/09/23 Range/Units 06:26 06:26 11:09 WBC 10.33 H (4.50-10.00) X 10*3/uL RBC 3.16 L 3.33 L (3.80-5.40) m/uL Hgb 8.3 L 8.7 L D (11.4-16.0) gm/dL Hct 26.3 L 28.2 L (34.0-46.0) % MCH 26.3 L (27.0-32.0) pg MCHC 31.6 L 30.9 L (31.0-37.0) g/dL RDW 17.7 H 17.4 H (11.5-15.5) % Eosinophils # 0.42 H (0.04-0.35) X 10*3/uL Est GFR (CKD-EPI) 58 L (>=60) Urine Nitrite (Negative) Ur Leukocyte Esterase (Negative) Urine WBC (0-5) /hpf Urine Bacteria (None) /hpf Urine Mucus (None) /hpf Crossmatch Assessment and Plan (1) Anemia Status: Acute Priority: High Code(s): D64.9 - ANEMIA, UNSPECIFIED SNOMED Code(s): 131727223 Plan: Normocytic anemia: Significant history of CABG and atrial fibrillation anticoagulated with Eliquis. Patient was sent to the ER by her PCP for low hemoglobin noted on CBC obtained in clinic. Patient was admitted in September for the same, at which time she received 1 unit PRBCs, but she does not recall getting IV iron and has not been taking any oral iron. Iron was 67 at that time, but no additional anemia labs were obtained. Upper and lower GI was performed by Dr. Stein on 10/05/23 which showed no evidence of acute GI bleed. Upon trending labs, mild anemia was noted in 2019 with hgb 11.1, otherwise hgb has been in the normal range from available labs within EMR, until her admission on 09/15/23 at which time hgb was in the 7 range. -Upon admission CBC showed, hgb 7.1, MCV 81.3, MCH 25.0. Plts 418,000, WBC 9.5. -S/p 1 unit PRBCs. Repeat hgb today 8.7. Eliquis has been held. Denies any episodes of acute bleeding, bowel changes, and melena. -Creatinine 0.88, GFR 64. Coags WNL. Stool occult negative. 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 Will obtain anemia labs to r/o nutritional deficiencies, and request for labs to be ran on pre-transfusion blood. Will plan for parenteral iron, pending workup -Will schedule clinic f/u for further monitoring of CBC/iron studies and IV iron transfusions as needed attests: I have seen and examined pt, performed H&P, developed impression and plan of care. Discussed with dictator. Agree with documentation, dictated as a scribe.
[2023-12-09 19:17] LABS: % Iron Saturation 4.6 (12.00-45.00); Ferritin 13.4 ng/mL (10.0-291.0)
[2023-12-10] MEDS ORDERED: amLODIPine 2.5 MG TAB PO SCH (09:00)
[2023-12-11 01:40] LABS: Methylmalonic Acid 0.19 umol/L (<0.40)
== END 2023-12-09 15:21 | disposition home or self-care (01) ==
LOC: EC 10:20 → 6NMEDSUR 14:42 → 5NMEDONC 14:56
PROVIDERS: ADMIT Family Medicine; ATTEND Family Medicine
DX: D50.9 Iron deficiency anemia, unspecified (principal); I48.91 Unspecified atrial fibrillation; Z79.82 Long term (current) use of aspirin; Z79.01 Long term (current) use of anticoagulants; Z79.899 Other long term (current) drug therapy; Z88.6 Allergy status to analgesic agent; Z88.2 Allergy status to sulfonamides; Z87.891 Personal history of nicotine dependence; Z95.1 Presence of aortocoronary bypass graft; Z98.890 Other specified postprocedural states
CPT/HCPCS: 36430; 99285; 36415; 94640 ×3; 94760; 86900; 86901; 83921; 82747; 80053 ×2; 82607; 82728; 83540; 83550; 85025 ×2; 85610; 85730; 86850; 86920; 82272; 81001; G0378 ×2; P9016

== ENCOUNTER 2024-02-08 18:00 | Emergency (ER) | payer MEDICARE ==
--- NOTE | 2024-02-08 18:35 | ED ---
Recheck HPI <Steven Yuan - Last Filed: 02/09/24 01:14> - General Source: patient, family, RN notes reviewed <Edna Sepulveda - Last Filed: 02/09/24 11:32> - General Stated Complaint: Abn Labs Time Seen by Provider: 02/08/24 18:15 - History of Present Illness Initial Comments: 78-year-old female who has been worked up for anemia with both upper and lower GI in the past several months presenting with persistent anemia. Patient has not followed with hematology. She is uncertain of the cause of her anemia. She denies bright red rectal bleeding or melena. Denies any bloody nose or any other source of bleeding. Patient states overall she feels well. (Steven Carreon) Quick [id number] female presents emergency room chief complaint of abnormal labs. Patient had outpatient lab work drawn today where she was alerted that her hemoglobin was 6.5. Patient does have a history of anemia. She denies hematochezia or dark or tarry stools. Denies heart palpitations, dizziness lightheadedness. Endorses nausea. Denies blood thinner use (Edna Sepulveda) - Related Data Home Medications Medication Instructions Recorded Confirmed Atorvastatin [Lipitor] 10 mg PO HS 04/05/22 12/08/23 atenoloL [Tenormin] 25 mg PO BID 04/05/22 12/08/23 Fexofenadine HCl 180 mg PO DAILY 09/30/23 12/08/23 Montelukast [Singulair] 10 mg PO DAILY 09/30/23 12/08/23 Omeprazole 40 mg PO DAILY 09/30/23 12/08/23 Ipratropium-Albuterol Nebulize 3 ml INHALATION RT-TID 10/02/23 12/08/23 [Duoneb 0.5 mg-3 mg/3 ml Soln] Previous Rx's Medication Instructions Recorded Aspirin 81 mg PO DAILY 90 Days #90 tab 04/06/22 Folic Acid 1 mg PO DAILY 90 Days #90 tab 04/06/22 Potassium Chloride ER [K-Dur 20] 20 meq PO DAILY 30 Days #30 tab 10/06/23 amLODIPine [Norvasc] 2.5 mg PO DAILY 30 Days #30 tab 12/09/23 Allergies Allergy/AdvReac Type Severity Reaction Status Date / Time acetaminophen [From Tylenol] AdvReac per Verified 02/08/24 18:43 patient causes fatty liver to worsen Sulfa (Sulfonamide AdvReac Unknown Verified 02/08/24 18:43 Antibiotics) Review of Systems ROS Other: All systems not noted in ROS Statement are negative. <Steven Yuan Serge - Last Filed: 02/09/24 01:14> ROS Other: All systems not noted in ROS Statement are negative. <Edna Sepulveda - Last Filed: 02/09/24 11:32> ROS Statement: Those systems with pertinent positive or pertinent negative responses have been documented in the HPI. Past Medical History Past Medical History: Atrial Fibrillation, Coronary Artery Disease (CAD), Eye Disorder, Hyperlipidemia, Liver Disease, Osteoarthritis (OA) Additional Past Medical History / Comment(s): "Fatty liver", beginnings of cataracts", occasional heartburn, urinary incontinence, occasional SOB, uses O2 at night only at 2L, back pain. History of Any Multi-Drug Resistant Organisms: None Reported Past Surgical History: Appendectomy, Coronary Bypass/CABG, Heart Catheterization, Joint Replacement, Orthopedic Surgery, Tonsillectomy, Tubal Ligation Additional Past Surgical History / Comment(s): 2011 quadruple CABG, cervical fusion, left knee arthroscopy, total right hip replacement. Past Anesthesia/Blood Transfusion Reactions: Previous Problems w/ Anesthesia, Family History of Problems w/ Anesthesia Additional Past Anesthesia/Blood Transfusion Reaction / Comment(s): Patient and Mom had hard time waking up. Clausterphobia. Past Psychological History: No Psychological Hx Reported Smoking Status: Former smoker Past Alcohol Use History: None Reported Additional Past Alcohol Use History / Comment(s): Started smoking at age 13, smoked 1/2 ppd and quit in 2009. Past Drug Use History: None Reported - Past Family History Father Family Medical History: Myocardial Infarction ([place]) Additional Family Medical History / Comment(s): from [place] at age 52. Mother Additional Family Medical History / Comment(s): Rheumatic fever, lived to age 85. <Edna Sepulveda - Last Filed: 02/09/24 11:32> General Exam General appearance: alert, in no apparent distress Head exam: Present: atraumatic, normocephalic Eye exam: Present: normal appearance, PERRL ENT exam: Present: normal exam Neck exam: Present: normal inspection. Absent: tenderness, meningismus Respiratory exam: Present: normal lung sounds bilaterally. Absent: respiratory distress, wheezes Cardiovascular Exam: Present: regular rate, normal rhythm GI/Abdominal exam: Present: soft. Absent: distended, tenderness, guarding Neurological exam: Present: alert, oriented X3 Psychiatric exam: Present: normal affect, normal mood Skin exam: Present: warm, dry, pallor <Steven Yuan - Last Filed: 02/09/24 01:14> <Edna Sepulveda - Last Filed: 02/09/24 11:32> - General Exam Comments Initial Comments: Visual Physical Exam Vital signs reviewed General: Well-appearing, nontoxic, no acute distress. Head: Normocephalic, atraumatic Eyes: PERRLA, EOMI ENT: Airway patent Chest: Nonlabored breathing Skin: No visual rash, normal skin tone Neuro: Alert and oriented 3 Musculoskeletal: No gross abnormalities (Edna Sepulveda) Course Vital Signs 02/08/24 02/08/24 02/09/24 18:39 22:54 00:31 Temperature 97.7 F 97.4 F L Pulse Rate 68 81 70 Respiratory 18 18 18 Rate Blood Pressure 119/57 145/74 149/66 O2 Sat by Pulse 100 100 100 Oximetry 02/09/24 02/09/24 02/09/24 00:40 01:00 01:54 Temperature 97.3 F L 97.3 F L 97.4 F L Pulse Rate 68 61 75 Respiratory 18 18 18 Rate Blood Pressure 133/61 144/66 152/81 O2 Sat by Pulse 99 99 99 Oximetry 02/09/24 02:19 Temperature Pulse Rate 74 Respiratory 18 Rate Blood Pressure 152/88 O2 Sat by Pulse 99 Oximetry Medical Decision Making - Lab Data Result diagrams: 02/08/24 18:51 02/08/24 18:51 <Steven Yuan - Last Filed: 02/09/24 01:14> - Lab Data Result diagrams: 02/08/24 18:51 02/08/24 18:51 <Edna Sepulveda - Last Filed: 02/09/24 11:32> - Medical Decision Making Was pt. sent in by a medical professional or institution (, PA, PIPE PULLER, urgent care, hospital, or shelter...) When possible be specific @ -No Did you speak to anyone other than the patient for history (EMS, parent, family, police, friend...)? What history was obtained from this source @ -No Did you review nursing and triage notes (agree or disagree)? Why? @ -I reviewed and agree with nursing and triage notes Were old charts reviewed (outside hosp., previous admission, EMS record, old EKG, old radiological studies, urgent care reports/EKG's, shelter records)? Report findings @ -No old charts were reviewed Differential Diagnosis: Symptomatic anemia, GI bleed, anemia of chronic illness, hematological causes of anemia. EKG interpreted by me (3pts min.). @ -As above X-rays interpreted by me (1pt min.). @ -None done CT interpreted by me (1pt min.). @ -None done U/S interpreted by me (1pt. min.). @ -None done What testing was considered but not performed or refused? (CT, X-rays, U/S, labs)? Why? @ -None What meds were considered but not given or refused? Why? @ -None Did you discuss the management of the patient with other professionals (professionals i.e. , PA, PIPE PULLER, lab, RT, psych nurse, psychiatric social worker, preassembler and inspector, teacher, information assurance officer, pillowcase maker)? Give summary @ -No Was smoking cessation discussed for >3mins.? @ -No Was critical care preformed (if so, how long)? @ -No Were there social determinants of health that impacted care today? How? (Homelessness, low income, unemployed, alcoholism, drug addiction, transportation, low edu. Level, literacy, decrease access to med. care, alf, rehab)? @ -No Was there de-escalation of care discussed even if they declined (Discuss DNR or withdrawal of care, Hospice)? DNR status @ -No What co-morbidities impacted this encounter? (DM, HTN, Smoking, COPD, CAD, Cancer, CVA, ARF, Chemo, Hep., AIDS, mental health diagnosis, sleep apnea, mor bid obesity)? @ -[Hypertension, chronic anemia Was patient admitted / discharged? Hospital course, mention meds given and route, prescriptions, significant lab abnormalities, going to OR and other pe rtinent info. @ -78-year-old female presenting with anemia found on outpatient lab. Hemoglobin was 6.5 and is rechecked this is 6.4. Patient denies any source of bleeding. Patient has good follow-up with her primary care provider. She will follow closely with primary care provider and hematology. Return parameters are discussed she will have her blood redrawn later this week. Undiagnosed new problem with uncertain prognosis? @ -No Drug Therapy requiring intensive monitoring for toxicity (Heparin, Nitro, Insulin, Cardizem)? @ -No Were any procedures done? @ -No Diagnosis/symptom? @Chronic anemia Acute, or Chronic, or Acute on Chronic? @ -chronic Uncomplicated (without systemic symptoms) or Complicated (systemic symptoms)? @ -Default Side effects of treatment? @ -No Exacerbation, Progression, or Severe Exacerbation? @ -No Poses a threat to life or bodily function? How? (Chest pain, [place], [place], pneumonia, PE, COPD, DKA, ARF, appy, cholecystitis, CVA, Diverticulitis, Homicidal, S uicidal, threat to staff... and all critical care pts) @Yes, anemia (Steven Yuan) I completed the quick note portion of this chart signed Edna Sepulveda PA-C (Edna Sepulveda) - Lab Data Lab Results 02/08/24 02/08/24 02/08/24 Range/Units 18:51 18:51 22:40 WBC 8.2 (3.8-10.6) k/uL RBC 2.67 L (3.80-5.40) m/uL Hgb 6.4 L* D (11.4-16.0) gm/dL Hct 21.2 L (34.0-46.0) % MCV 79.5 L D (80.0-100.0) fL MCH 24.0 L (25.0-35.0) pg MCHC 30.2 L (31.0-37.0) g/dL RDW 16.8 H (11.5-15.5) % Plt Count 408 (150-450) k/uL MPV 8.0 Neutrophils % 63 % Lymphocytes % 27 % Monocytes % 4 % Eosinophils % 2 % Basophils % 1 % Neutrophils # 5.2 (1.3-7.7) k/uL Lymphocytes # 2.2 (1.0-4.8) k/uL Monocytes # 0.3 (0-1.0) k/uL Eosinophils # 0.2 (0-0.7) k/uL Basophils # 0.1 (0-0.2) k/uL Manual Slide Review Performed Polychromasia Present Hypochromasia Marked Anisocytosis Slight Microcytosis Slight Sodium 139 (137-145) mmol/L Potassium 4.4 (3.5-5.1) mmol/L Chloride 108 H (98-107) mmol/L Carbon Dioxide 24 (22-30) mmol/L Anion Gap 7 mmol/L BUN 20 H (7-17) mg/dL Creatinine 0.99 (0.52-1.04) mg/dL Est GFR (CKD-EPI)AfAm 63 (>60 ml/min/1.73 sqM) Est GFR (CKD-EPI)NonAf 55 (>60 ml/min/1.73 sqM) Glucose 149 H (74-99) mg/dL Calcium 9.3 (8.4-10.2) mg/dL Total Bilirubin 0.3 (0.2-1.3) mg/dL AST 19 (14-36) U/L ALT 10 (4-34) U/L Alkaline Phosphatase 59 (38-126) U/L Total Protein 6.2 L (6.3-8.2) g/dL Albumin 3.7 (3.5-5.0) g/dL Blood Type A Negative Blood Type Recheck A Neg Bld Type Recheck Status No Antibody Screen NEGATIVE Crossmatch See Detail Spec Expiration Date 02/11/20242339 Disposition Is patient prescribed a controlled substance at d/c from ED?: No <Steven Yuan - Last Filed: 02/09/24 01:14> <Edna Sepulveda - Last Filed: 02/09/24 11:32> Clinical Impression: Anemia Disposition: HOME SELF-CARE Condition: Fair Instructions (If sedation given, give patient instructions): Anemia (ED) Additional Instructions: Please follow-up with your primary care for repeat lab testing later this week. Referrals: Latrell Gaytan MD [Primary Care Provider] - 1-2 days Quinten Kaur MD [STAFF PHYSICIAN] - 1-2 days
[2024-02-08 18:43] VITALS: RESP 18
[2024-02-08 18:56] LABS: Anisocytosis Slight; Basophils # (A) 0.1 k/uL (0-0.2); Basophils % (A) 1 %; Eosinophils # (A) 0.2 k/uL (0-0.7); Eosinophils % (A) 2 %; HCT 21.2 % (34.0-46.0); Hypochromasia Marked; Lymphocytes # (A) 2.2 k/uL (1.0-4.8); Lymphocytes % (A) 27 %; MCHC 30.2 g/dL (31.0-37.0); Microcytosis Slight; Monocytes # (A) 0.3 k/uL (0-1.0); Monocytes % (A) 4 %; Neutrophils # (A) 5.2 k/uL (1.3-7.7); Neutrophils % (A) 63 %; Platelet Count 408 k/uL (150-450); RBC 2.67 m/uL (3.80-5.40); RDW 16.8 % (11.5-15.5); WBC 8.2 k/uL (3.8-10.6)
[2024-02-08 19:06] LABS: MCV 79.5 fL (80.0-100.0)
[2024-02-08 19:07] LABS: HGB 6.4 gm/dL (11.4-16.0)
[2024-02-08 19:13] LABS: ALT 10 U/L (4-34); AST 19 U/L (14-36); African American GFR (CKD) 63 (>60 ml/min/1.73 sqM); Albumin 3.7 g/dL (3.5-5.0); Alkaline Phosphatase 59 U/L (38-126); Anion Gap 7 mmol/L; Blood Urea Nitrogen 20 mg/dL (7-17); Calcium 9.3 mg/dL (8.4-10.2); Carbon Dioxide 24 mmol/L (22-30); Chloride 108 mmol/L (98-107); Glucose 149 mg/dL (74-99); Non-African American GFR(CKD) 55 (>60 ml/min/1.73 sqM); Potassium 4.4 mmol/L (3.5-5.1); Sodium 139 mmol/L (137-145); Total Bilirubin 0.3 mg/dL (0.2-1.3); Total Protein 6.2 g/dL (6.3-8.2)
[2024-02-08 19:24] LABS: Polychromasia Present
[2024-02-09 01:56] VITALS: TEMP 97.4
[2024-02-09 02:22] VITALS: BP 152/88; PULSE 74
== END 2024-02-09 02:21 | disposition home or self-care (01) ==
LOC: EC 18:00
DX: R79.9 Abnormal finding of blood chemistry, unspecified
CPT/HCPCS: 36415; 36430; 80053; 85025; 86850; 86900; 86901; 86920; 99284

== ENCOUNTER 2024-03-18 13:25 | Emergency (ER) | payer MEDICARE ==
--- NOTE | 2024-03-18 14:02 | ED ---
General Adult HPI - General Chief complaint: Recheck/Abnormal Lab/Rx Stated complaint: Infusion Time Seen by Provider: 03/18/24 13:43 Source: patient Mode of arrival: wheelchair Limitations: no limitations - History of Present Illness Initial comments: Dictation was produced using [employer] dictation software. please excuse any grammatical, word or spelling errors. Chief Complaint: 78-year-old female presents emergency department for blood transfusion History of Present Illness: Patient 70-year-old female presents emergency department for blood transfusion. Patient had blood drawn recently and was told that she has a hemoglobin of 6.5. She had that blood drawn by her primary care doctor. She states that she is here today to have a blood transfusion. She states she had extensive workup by hematology and GI and there is no apparent cause for patient's anemia. Patient states she feels at baseline. Denies any black or bloody stools. The ROS documented in this emergency department record has been reviewed and confirmed by me. Those systems with pertinent positive or negative responses have been documented in the HPI. All other systems are other negative and/or noncontributory. - Related Data Home Medications Medication Instructions Recorded Confirmed Atorvastatin [Lipitor] 10 mg PO HS 04/05/22 12/08/23 atenoloL [Tenormin] 25 mg PO BID 04/05/22 12/08/23 Fexofenadine HCl 180 mg PO DAILY 09/30/23 12/08/23 Montelukast [Singulair] 10 mg PO DAILY 09/30/23 12/08/23 Omeprazole 40 mg PO DAILY 09/30/23 12/08/23 Ipratropium-Albuterol Nebulize 3 ml INHALATION RT-TID 10/02/23 12/08/23 [Duoneb 0.5 mg-3 mg/3 ml Soln] Previous Rx's Medication Instructions Recorded Aspirin 81 mg PO DAILY 90 Days #90 tab 04/06/22 Folic Acid 1 mg PO DAILY 90 Days #90 tab 04/06/22 Potassium Chloride ER [K-Dur 20] 20 meq PO DAILY 30 Days #30 tab 10/06/23 amLODIPine [Norvasc] 2.5 mg PO DAILY 30 Days #30 tab 12/09/23 Allergies Allergy/AdvReac Type Severity Reaction Status Date / Time acetaminophen [From Tylenol] AdvReac per Verified 02/08/24 18:43 patient causes fatty liver to worsen Sulfa (Sulfonamide AdvReac Unknown Verified 02/08/24 18:43 Antibiotics) Review of Systems ROS Statement: Those systems with pertinent positive or pertinent negative responses have been documented in the HPI. ROS Other: All systems not noted in ROS Statement are negative. Past Medical History Past Medical History: Atrial Fibrillation, Coronary Artery Disease (CAD), Eye Disorder, Hyperlipidemia, Liver Disease, Osteoarthritis (OA) Additional Past Medical History / Comment(s): Chronic anemia, "Fatty liver", beginnings of cataracts", occasional heartburn, urinary incontinence, occasional SOB, uses O2 at night only at 2L, back pain. History of Any Multi-Drug Resistant Organisms: None Reported Past Surgical History: Appendectomy, Coronary Bypass/CABG, Heart Catheterization, Joint Replacement, Orthopedic Surgery, Tonsillectomy, Tubal Ligation Additional Past Surgical History / Comment(s): 2011 quadruple CABG, cervical fusion, left knee arthroscopy, total right hip replacement. Past Anesthesia/Blood Transfusion Reactions: Previous Problems w/ Anesthesia, Family History of Problems w/ Anesthesia Additional Past Anesthesia/Blood Transfusion Reaction / Comment(s): Patient and Mom had hard time waking up. Clausterphobia. Past Psychological History: No Psychological Hx Reported Smoking Status: Former smoker Past Alcohol Use History: None Reported Past Drug Use History: None Reported - Past Family History Father Family Medical History: Myocardial Infarction ([place]) Additional Family Medical History / Comment(s): from [place] at age 52. Mother Additional Family Medical History / Comment(s): Rheumatic fever, lived to age 85. General Exam - General Exam Comments Initial Comments: PHYSICAL EXAM: General Impression: Alert and oriented x3, not in acute distress HEENT: Normocephalic atraumatic, extra-ocular movements intact, pupils equal and reactive to light bilaterally, mucous membranes moist. Cardiovascular: Heart regular rate and rhythm Chest: Able to complete full sentences, no retractions, no tachypnea Abdomen: abdomen soft, non-tender, non-distended, no organomegaly Musculoskeletal: Pulses present and equal in all extremities, no peripheral edema Motor: no focal deficits noted Neurological: CN II-XII grossly intact, no focal motor or sensory deficits noted Skin: Intact with no visualized rashes Psych: Normal affect and mood Limitations: no limitations Course Vital Signs 03/18/24 03/18/24 03/18/24 13:27 16:07 16:27 Temperature 97.5 F L 97.8 F 97.6 F Pulse Rate 72 80 72 Respiratory 18 16 16 Rate Blood Pressure 134/68 136/62 136/62 O2 Sat by Pulse 100 99 97 Oximetry 03/18/24 03/18/24 16:47 18:23 Temperature 97.4 F L 97.4 F L Pulse Rate 68 67 Respiratory 16 14 Rate Blood Pressure 143/58 142/64 O2 Sat by Pulse 98 97 Oximetry Medical Decision Making - Medical Decision Making Was pt. sent in by a medical professional or institution (, PA, PETAL SHAPER HAND, urgent care, hospital, or long-term...) When possible be specific @ -No Did you speak to anyone other than the patient for history (EMS, parent, family, police, friend...)? What history was obtained from this source @ -No Did you review nursing and triage notes (agree or disagree)? Why? @ -I reviewed and agree with nursing and triage notes Were old charts reviewed (outside hosp., previous admission, EMS record, old EKG, old radiological studies, urgent care reports/EKG's, long-term records)? Report findings @ -No old charts were reviewed Differential Diagnosis (chest pain, altered mental status, abdominal pain women, abdominal pain men, vaginal bleeding, musculoskeletal, weakness, fever, dyspnea, syncope, headache, dizziness, GI bleed, back pain, seizure, CVA, palpatations, mental health)? @ -GI bleed, anemia of chronic disease, pancytopenia EKG interpreted by me (3pts min.). @ -None done X-rays interpreted by me (1pt min.). @ -None done CT interpreted by me (1pt min.). @ -None done U/S interpreted by me (1pt. min.). @ -None done What testing was considered but not performed or refused? (CT, X-rays, U/S, labs)? Why? @ -None What meds were considered but not given or refused? Why? @ -None Was smoking cessation discussed for >3mins.? @ -No Were there social determinants of health that impacted care today? How? (Homelessness, low income, unemployed, alcoholism, drug addiction, transportation, low edu. Level, literacy, decrease access to med. care, fdc, rehab)? @ -No Was there de-escalation of care discussed even if they declined (Discuss DNR or withdrawal of care, Hospice)? DNR status @ -No What co-morbidities impacted this encounter? (DM, HTN, Smoking, COPD, CAD, Cancer, CVA, ARF, Chemo, Hep., AIDS, mental health diagnosis, sleep apnea, morbid obesity)? @ -None Was patient admitted / discharged? Hospital course, mention meds given and route , prescriptions, significant lab abnormalities, going to OR and other pertinent info. @ -78-year-old female presents to the emergency department for anemia. Patient has chronic anemia. Vital signs stable. Physical examination is benign. Patient Denies any complaints of GI bleed. She came here for transfusion. Laboratory evaluation obtained. Hemoglobin 7.0. Rest of labs within acceptable limits. Patient given 1 unit blood transfusion discharge. Return precautions discussed advised close follow-up with primary care doctor. Did you discuss the management of the patient with other professionals (professionals i.e. , PA, PETAL SHAPER HAND, lab, RT, psych nurse, social economist, incident response analyst, teacher, senior vice president and chief information officer, casey saw operator)? Give summary @ -No Was critical care preformed (if so, how long)? @ -No Undiagnosed new problem with uncertain prognosis? @ -No Drug Therapy requiring intensive monitoring for toxicity (Heparin, Nitro, Insulin, Cardizem)? @ -No Were any procedures done? @ -No Diagnosis/symptom? Acute, or Chronic, or Acute on Chronic? Uncomplicated (without systemic symptoms) or Complicated (systemic symptoms)? @ -Acute on chronic anemia Side effects of treatment? @ -No Exacerbation, Progression, or Severe Exacerbation? @ -No Poses a threat to life or bodily function? How? (Chest pain, [place], [place], pneumonia, PE, COPD, DKA, ARF, appy, cholecystitis, CVA, Diverticulitis, Homicidal, Suicidal, threat to staff... and all critical care pts) @ -yes - Lab Data Result diagrams: 03/18/24 14:20 03/18/24 14:20 Lab Results 03/18/24 03/18/24 03/18/24 Range/Units 14:20 14:20 14:20 WBC 10.7 H (3.8-10.6) k/uL RBC 2.85 L (3.80-5.40) m/uL Hgb 7.0 L (11.4-16.0) gm/dL Hct 22.4 L (34.0-46.0) % MCV 78.7 L (80.0-100.0) fL MCH 24.6 L (25.0-35.0) pg MCHC 31.3 (31.0-37.0) g/dL RDW 17.9 H (11.5-15.5) % Plt Count 347 (150-450) k/uL MPV 7.1 Neutrophils % 70 % Lymphocytes % 22 % Monocytes % 4 % Eosinophils % 1 % Basophils % 0 % Neutrophils # 7.5 (1.3-7.7) k/uL Lymphocytes # 2.4 (1.0-4.8) k/uL Monocytes # 0.5 (0-1.0) k/uL Eosinophils # 0.1 (0-0.7) k/uL Basophils # 0.0 (0-0.2) k/uL Hypochromasia Marked Anisocytosis Slight Microcytosis Slight PT 10.6 (10.0-12.5) sec INR 1.0 (<1.2) APTT 26.9 (22.0-30.0) sec Sodium 138 (137-145) mmol/L Potassium 4.1 (3.5-5.1) mmol/L Chloride 109 H (98-107) mmol/L Carbon Dioxide 24 (22-30) mmol/L Anion Gap 5 mmol/L BUN 16 (7-17) mg/dL Creatinine 0.80 (0.52-1.04) mg/dL Est GFR (CKD-EPI)AfAm 82 (>60 ml/min/1.73 sqM) Est GFR (CKD-EPI)NonAf 71 (>60 ml/min/1.73 sqM) Glucose 104 H (74-99) mg/dL Calcium 9.3 (8.4-10.2) mg/dL Total Bilirubin 0.4 (0.2-1.3) mg/dL AST 21 (14-36) U/L ALT 11 (4-34) U/L Alkaline Phosphatase 68 (38-126) U/L Total Protein 6.8 (6.3-8.2) g/dL Albumin 4.1 (3.5-5.0) g/dL Blood Type Blood Type Recheck Bld Type Recheck Status Antibody Screen Crossmatch Spec Expiration Date 03/18/24 Range/Units 14:20 WBC (3.8-10.6) k/uL RBC (3.80-5.40) m/uL Hgb (11.4-16.0) gm/dL Hct (34.0-46.0) % MCV (80.0-100.0) fL MCH (25.0-35.0) pg MCHC (31.0-37.0) g/dL RDW (11.5-15.5) % Plt Count (150-450) k/uL MPV Neutrophils % % Lymphocytes % % Monocytes % % Eosinophils % % Basophils % % Neutrophils # (1.3-7.7) k/uL Lymphocytes # (1.0-4.8) k/uL Monocytes # (0-1.0) k/uL Eosinophils # (0-0.7) k/uL Basophils # (0-0.2) k/uL Hypochromasia Anisocytosis Microcytosis PT (10.0-12.5) sec INR (<1.2) APTT (22.0-30.0) sec Sodium (137-145) mmol/L Potassium (3.5-5.1) mmol/L Chloride (98-107) mmol/L Carbon Dioxide (22-30) mmol/L Anion Gap mmol/L BUN (7-17) mg/dL Creatinine (0.52-1.04) mg/dL Est GFR (CKD-EPI)AfAm (>60 ml/min/1.73 sqM) Est GFR (CKD-EPI)NonAf (>60 ml/min/1.73 sqM) Glucose (74-99) mg/dL Calcium (8.4-10.2) mg/dL Total Bilirubin (0.2-1.3) mg/dL AST (14-36) U/L ALT (4-34) U/L Alkaline Phosphatase (38-126) U/L Total Protein (6.3-8.2) g/dL Albumin (3.5-5.0) g/dL Blood Type A Negative Blood Type Recheck A Neg Bld Type Recheck Status No Antibody Screen NEGATIVE Crossmatch See Detail Spec Expiration Date 03/21/20242319 Disposition Clinical Impression: Anemia Disposition: HOME SELF-CARE Condition: Fair Instructions (If sedation given, give patient instructions): Anemia (ED) Is patient prescribed a controlled substance at d/c from ED?: No Referrals: Latrell Gaytan MD [Primary Care Provider] - 1-2 days Time of Disposition: 15:23
[2024-03-18 14:49] LABS: Anisocytosis Slight; Basophils % (A) 0 %; Eosinophils # (A) 0.1 k/uL (0-0.7); Eosinophils % (A) 1 %; HCT 22.4 % (34.0-46.0); Hypochromasia Marked; Lymphocytes # (A) 2.4 k/uL (1.0-4.8); Lymphocytes % (A) 22 %; MCH 24.6 pg (25.0-35.0); MCHC 31.3 g/dL (31.0-37.0); MCV 78.7 fL (80.0-100.0); Mean Platelet Volume 7.1; Microcytosis Slight; Monocytes # (A) 0.5 k/uL (0-1.0); Monocytes % (A) 4 %; Neutrophils # (A) 7.5 k/uL (1.3-7.7); Neutrophils % (A) 70 %; Platelet Count 347 k/uL (150-450); RBC 2.85 m/uL (3.80-5.40); RDW 17.9 % (11.5-15.5); WBC 10.7 k/uL (3.8-10.6)
[2024-03-18 14:59] LABS: ALT 11 U/L (4-34); AST 21 U/L (14-36); African American GFR (CKD) 82 (>60 ml/min/1.73 sqM); Albumin 4.1 g/dL (3.5-5.0); Alkaline Phosphatase 68 U/L (38-126); Anion Gap 5 mmol/L; Blood Urea Nitrogen 16 mg/dL (7-17); Calcium 9.3 mg/dL (8.4-10.2); Carbon Dioxide 24 mmol/L (22-30); Chloride 109 mmol/L (98-107); Glucose 104 mg/dL (74-99); Non-African American GFR(CKD) 71 (>60 ml/min/1.73 sqM); Partial Thromboplastin Time 26.9 sec (22.0-30.0); Potassium 4.1 mmol/L (3.5-5.1); Prothrombin Time 10.6 sec (10.0-12.5); Sodium 138 mmol/L (137-145); Total Bilirubin 0.4 mg/dL (0.2-1.3); Total Protein 6.8 g/dL (6.3-8.2)
[2024-03-18] MEDS: SODIUM CHLORIDE 0.9% 1,000 ML IV STA (15:13)
[2024-03-18 17:53] VITALS: TEMP 97.4
[2024-03-18 18:24] VITALS: BP 142/64; PULSE 67; RESP 14
== END 2024-03-18 18:50 | disposition home or self-care (01) ==
LOC: EC 13:25
DX: D64.9 Anemia, unspecified (principal); Z87.891 Personal history of nicotine dependence; Z88.1 Allergy status to other antibiotic agents; Z88.2 Allergy status to sulfonamides; Z88.6 Allergy status to analgesic agent; Z88.8 Allergy status to other drugs, medicaments and biological substances; Z90.89 Acquired absence of other organs; Z95.1 Presence of aortocoronary bypass graft
CPT/HCPCS: 36415; 86900; 86901; 80053; 85025; 85610; 85730; 86850; 86920; 99285; 96360; 36430; P9016

== ENCOUNTER → 2024-08-25 | Outpatient (CLI) | payer MEDICARE ==
--- NOTE | 2024-08-25 15:14 | XR ---
EXAMINATION TYPE: XR thoracic spine complete DATE OF EXAM: 08/25/2024 3:01 PM COMPARISON: None. CLINICAL INDICATION: Female, 79 years old with history of M54.6 PAIN IN T SPINE, pain TECHNIQUE: 3 view(s) obtained. FINDINGS: There are 12 thoracic type vertebral bodies. Pedicles are intact. Spondylosis is present. Disc height s appear preserved. Vertebral body heights are preserved. IMPRESSION: 1. No acute pulmonary process radiographically. [facility], , 08/25/2024 3:11 PM
== END | disposition home or self-care (01) ==
LOC: RADXRMAIN 14:43
PROVIDERS: ATTEND Family Medicine
DX: M54.6 Pain in thoracic spine (principal)
CPT/HCPCS: 72072

== ENCOUNTER → 2024-09-15 | Outpatient (CLI) | payer MEDICARE ==
--- NOTE | 2024-09-15 17:16 | CT ---
EXAMINATION TYPE: CT thoracic spine wo con DATE OF EXAM: 09/15/2024 COMPARISON: 10/21/2021 CLINICAL INDICATION: Female, 79 years old with history of M54.6 PAIN IN THORACIC SPINE Z78.0 ASYMPTOM ATIC ME; [facility], thoracic pain for months, no injury, pt states cervical surgery in the s CT DLP: 475.5 mGycm Automated exposure control for dose reduction was used. FINDINGS: There is mild multilevel degenerative disc space narrowing and spondylosis. Vacuum disc noted at T8-9 and T12-L1. No evidence for disc herniation or protrusion. No central stenosis present. No evidence for fracture or osseous lesion. No paraspinal mass evident. Again noted are scattered subcentimeter l ymph nodes within the mediastinum. 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 [facility], , 09/15/2024 5:14 PM
--- NOTE | 2024-09-15 21:50 | BD ---
EXAMINATION TYPE: Axial Bone Density DATE OF EXAM: 09/15/2024 CLINICAL HISTORY: 79 years old Female. ICD-10 CODE: Z780 POST BENJAMIN WITHOUT HRT , Additional History: Height: 63 Weight: 115 FRAX RISK QUESTIONS: Alcohol (3 or more units per day): no Family History (Parent hip fracture): no Glucocorticoids (More than 3mos): no (Ex: prednisone, prednisolone, methylprednisolone, dexamethasone, and hydrocortisone). History of Fracture in Adulthood: no Secondary Osteoporosis: 1. Type 1 Diabetes: no 2. Hyperthyroidism: no 3. Menopause before 45: no 4. Malnutrition: no 5. Chronic liver disease: no Rheumatoid Arthritis: no Current Tobacco Use: no RISK FACTORS HISTORY OF: Surgery to Spine/Hip(right/left)/Wrist (right/left): right hip EXAM MEASUREMENTS: Bone mineral densitometry was performed using the [employer] System. Bone mineral density as measured about the Lumbar spine is: ----- L1-L4(G/cm2): 1.184 T Score Values are as follows: ----- L1: -0.1 ----- L2: 0.0 ----- L3: 0.2 ----- L4: -0.1 ----- L1-L4: 0.0 Z Score Values are as follows: ----- L1: 2.1 ----- L2: 2.2 ----- L3: 2.5 ----- L4: 2.1 ----- L1-L4: 2.3 Bone mineral density has: decreased -6.7 % since study of: 11.14.2021 Bone mineral density about the L hip (g/cm2): 0.737 T Score values are as follows: -----L Neck: -2.5 -----L Total: -2.1 Z Score values are as follows: -----L Neck: -0.1 -----L Total: 0.1 Bone mineral density has: decreased -12.2 % since study of: 11.14.2021 FRAX%s: The graph provided illustrates a 16.2% chance for a major osteoporotic fx and a 5.9% chance f or the hips probability for fx in 10 years time. IMPRESSION: Osteoporosis (T Score less than -2.5). There is increased fracture risk and therapy is usually indicated based on age. Re-Screen 1-2 years. NOTE: T-SCORE=SD OF THE YOUNG ADULT MEAN. [facility], , 09/15/2024 9:47 PM
== END | disposition home or self-care (01) ==
LOC: RADCTMAIN 15:36
PROVIDERS: ATTEND Family Medicine
DX: M81.0 Age-related osteoporosis without current pathological fracture (principal); M51.34 Other intervertebral disc degeneration, thoracic region; Z78.0 Asymptomatic menopausal state
CPT/HCPCS: 72128; 77080